=== PATIENT | female | born 1955 | race Caucasian/White ===

== ENCOUNTER → 2020-04-27 09:52 | Outpatient (BNVA) | payer MEDICARE, SELFPAY | PROVIDERS: PCP Internal Medicine; Visit Provider Surgery | DX: Z76.89 Persons encountering health services in other specified circumstances (principal) ==

== ENCOUNTER 2020-05-25 11:08 | Outpatient (REF) | payer MEDICARE, SELFPAY ==
--- NOTE | 2020-05-25 11:12 | MM_ITS ---
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 Due for yearly. COMPARISON: Mammography: 05/23/2019, 06/04/2018, 05/29/2018, 05/16/2018, 04/07/2014 TECHNIQUE: Digital breast tomosynthesis is performed in both the craniocaudal and mediolateral oblique views along with computer-aided detection (CAD). Synthesized 2D images are generated from the tomosynthesis. FINDINGS: There are scattered areas of fibroglandular density (ACR BI-RADS breast composition Category b). Left breast post therapy changes are stable. Neither breast shows interval mass or architectural abnormality or abnormal calcifications. There are no significant changes. Results are provided to the patient at time of visit by the technologist. MM/MM tomosynthesis diagnostic BI IMPRESSION: No mammographic evidence of malignancy. Post therapy changes left breast. ASSESSMENT: BI-RADS 2: Benign RECOMMENDATION: Annual bilateral mammography. This patient's information was entered into a reminder system with a target due date for their next mammogram.
== END 2020-05-25 11:09 | disposition home or self-care (01) ==
LOC: HO.MAMMO 11:08
PROVIDERS: PCP Internal Medicine; Visit Provider Internal Medicine
DX: C50.412 Malignant neoplasm of upper-outer quadrant of left female breast (principal)
CPT/HCPCS: 77062; 77066

== ENCOUNTER → 2020-07-01 07:58 | Outpatient (BNV) | payer MEDICARE, SELFPAY | PROVIDERS: PCP Internal Medicine; Visit Provider Internal Medicine Medical Oncology | DX: C50.912 Malignant neoplasm of unspecified site of left female breast (principal); Z79.810 Long term (current) use of selective estrogen receptor modulators (SERMs); D51.9 Vitamin B12 deficiency anemia, unspecified; M81.0 Age-related osteoporosis without current pathological fracture | CPT/HCPCS: 99213; 99214 ==

== ENCOUNTER → 2020-10-26 09:10 | Outpatient (BNVA) | payer MEDICARE, SELFPAY | PROVIDERS: PCP Internal Medicine; Visit Provider Surgery ==

== ENCOUNTER 2020-11-05 08:01 | Outpatient (REF) | payer MEDICARE, SELFPAY ==
--- NOTE | ~2020-11-05 | MM_ITS ---
EXAMINATION: BONE DENSITOMETRY CLINICAL INDICATION: Menopause. COMPARISON: Previous BD dated 04/07/2014 and baseline BD dated 03/11/2020. TECHNIQUE: Using a ProMed DXA System (software version: 13.1) manufactured by [employer], dual-energy x-ray absorptiometry was performed of the lumbar spine and right hip. The images are of good technical quality. Summary results are attached. FINDINGS: AP SPINE L3-L4 (excluding L1 and L2): The data of L1-L4 has been changed to exclude the L1 and L2 vertebral bodies, because probable degenerative changes at these levels may cause overestimation of lumbar spine density. Current: BMD 0.896 g/cm2, Z-score -0.7, T-score -2.5, osteoporosis, 2.1% increase from previous, 4.2% decrease from baseline (<5% change is not significant). Prior: BMD 0.878 g/cm2. Baseline: BMD 0.935 g/cm2. RIGHT FEMUR, NECK: Current: BMD 0.735 g/cm2, Z-score -0.5, T-score -2.2, osteopenia. Prior: BMD 0.727 g/cm2. Baseline: BMD 0.770 g/cm2. RIGHT FEMUR, TOTAL: Current: BMD 0.729 g/cm2, Z-score -0.8, T-score -2.2, osteopenia, 1.5% increase from previous, 2.3% decrease from baseline (<5% change is not significant). Prior: BMD 0.718 g/cm2. Baseline: BMD 0.746 g/cm2. IDENTIFIED RISK FACTORS: Early menopause, secondary osteoporosis, history of fracture (adult). HISTORY OF FRACTURE: Femur/hip. Shoulder. Elbow. MEDICATIONS: Vitamin D, ERT/SERMS. MM/XR DEXA axial skeleton IMPRESSION: 1. DIAGNOSIS: Osteoporosis based on the lowest T-score value of -2.5 in the lumbar spine applying World Health Organization criteria. 2. 10-YEAR FRACTURE RISK PREDICTION, FRAX: Major osteoporotic fracture (clinical spine, forearm, hip or shoulder) 17.7%. Hip fracture 3.5%. 3. Treatment Recommendations: NOF guidelines recommend consideration for treatment in postmenopausal women and men age 50 and older presenting with the following: -A hip or vertebral (clinical or morphometric) fracture. -T-score less than or equal to -2.5 at the femoral neck or spine after appropriate evaluation to exclude secondary causes. -Low bone mass at the hip or spine and a 10-year fracture probability by FRAX of greater than or equal to 3% for hip fracture or greater than or equal to 20% for major osteoporotic fracture based on the [place] adapted WHO algorithm. 4. Other Recommendations: All treatment decisions require clinical judgment and consideration of individual patient factors, including patient preferences, comorbidities, previous drug use, risk factors not captured in the FRAX model (e.g. frailty, falls, vitamin D deficiency, increased bone turnover, interval significant decline in bone density) and possible under or overestimation of fracture risk by FRAX. Additional medical evaluation for secondary cause of low bone mineral density may be appropriate. FUTURE SCAN RECOMMENDATION: People with diagnosed cases of osteoporosis or at high risk for fracture should have regular bone mineral density tests. For patients eligible for Medicare, routine testing is allowed once every 2 years. The testing frequency can be increased to one year for patients who have rapidly progressing disease, those who are receiving or discontinuing medical therapy to restore bone mass, or have additional risk factors.
== END 2020-11-05 08:02 | disposition home or self-care (01) ==
LOC: HO.MAMMO 08:01
PROVIDERS: PCP Internal Medicine; Visit Provider Obstetrics & Gynecology
DX: Z13.820 Encounter for screening for osteoporosis (principal); M81.0 Age-related osteoporosis without current pathological fracture; Z78.0 Asymptomatic menopausal state; Z87.81 Personal history of (healed) traumatic fracture; Z79.899 Other long term (current) drug therapy
CPT/HCPCS: 77080

== ENCOUNTER → 2021-01-20 09:01 | Outpatient (BNVA) | payer MEDICARE, SELFPAY | PROVIDERS: PCP Internal Medicine; Visit Provider Surgery | DX: C50.912 Malignant neoplasm of unspecified site of left female breast (principal); Z79.810 Long term (current) use of selective estrogen receptor modulators (SERMs) | CPT/HCPCS: 99212 ==

== ENCOUNTER 2021-05-27 12:51 | Outpatient (REF) | payer MEDICARE, SELFPAY ==
--- NOTE | ~2021-05-27 | MM_ITS ---
EXAMINATION: MM DIAGNOSTIC DIGITAL BREAST TOMOSYNTHESIS, BILATERAL CLINICAL INFORMATION: Status post lumpectomy June 18, 2018 for a left invasive ductal carcinoma. COMPARISON: Mammography: 05/25/2020 and studies dating back to 04/04/2012. TECHNIQUE: Digital breast tomosynthesis is performed in both the craniocaudal and mediolateral oblique views along with computer-aided detection (CAD). Synthesized 2D images are generated from the tomosynthesis. Left breast exaggerated craniocaudal view and spot magnification views of the left breast in craniocaudal and 90 degree mediolateral views also performed. FINDINGS: The breasts are heterogeneously dense, which may obscure small masses (ACR BI-RADS breast composition Category c). There are no new significant masses, abnormal calcifications, or other abnormalities. Postsurgical change again seen within the left breast without change. Results are provided to the patient at time of visit by the technologist. MM/MM tomosynthesis diagnostic BI IMPRESSION: There are no significant changes from prior study. ASSESSMENT: BI-RADS 2: Benign RECOMMENDATION: Routine annual mammography screening. This patient's information was entered into a reminder system with a target due date for their next mammogram.
== END 2021-05-27 12:52 | disposition home or self-care (01) ==
LOC: HO.MAMMO 12:51
PROVIDERS: PCP Internal Medicine; Visit Provider Surgery
DX: Z85.3 Personal history of malignant neoplasm of breast (principal)
CPT/HCPCS: 77062; 77066

== ENCOUNTER → 2021-09-08 08:52 | Outpatient (BNVA) | payer MEDICARE, SELFPAY | PROVIDERS: PCP Internal Medicine; Visit Provider Surgery | DX: C50.912 Malignant neoplasm of unspecified site of left female breast (principal); Z79.810 Long term (current) use of selective estrogen receptor modulators (SERMs); Z17.0 Estrogen receptor positive status [ER+]; Z92.3 Personal history of irradiation | CPT/HCPCS: 99212 ==

== ENCOUNTER 2021-12-01 13:16 | Outpatient (REF) | payer MEDICARE, SELFPAY ==
--- NOTE | ~2021-12-01 | US_ITS ---
EXAMINATION: US SCREENING ULTRASOUND BREAST, BILATERAL CLINICAL INFORMATION: Dense breast tissue composition reported on recent mammography. History left invasive ductal cancer status post lumpectomy 06/18/2018. Screening ultrasound. COMPARISON: Mammography 05/27/2021, 05/25/2020. TECHNIQUE: Ultrasound is performed using grayscale imaging and color Doppler. Imaging is performed to include the four quadrants and retroareolar region. Both breasts are imaged. FINDINGS: Right breast: There is no suspicious finding by ultrasound. There is no cystic or solid mass or focal architectural abnormality. Left breast: There is no suspicious finding by ultrasound. Some minor scarring is noted posterior outer breast during real-time imaging consistent with the prior surgery. There is no cystic or solid mass or focal architectural abnormality. US/US breast RT complete IMPRESSION: No suspicious findings on screening breast ultrasound. ASSESSMENT: BI-RADS 2: Benign RECOMMENDATION: Routine annual mammography screening. This patient's information was entered into a reminder system with a target due date for their next mammogram.
--- NOTE | ~2021-12-01 | US_ITS ---
EXAMINATION: US SCREENING ULTRASOUND BREAST, BILATERAL CLINICAL INFORMATION: Dense breast tissue composition reported on recent mammography. History left invasive ductal cancer status post lumpectomy 06/18/2018. Screening ultrasound. COMPARISON: Mammography 05/27/2021, 05/25/2020. TECHNIQUE: Ultrasound is performed using grayscale imaging and color Doppler. Imaging is performed to include the four quadrants and retroareolar region. Both breasts are imaged. FINDINGS: Right breast: There is no suspicious finding by ultrasound. There is no cystic or solid mass or focal architectural abnormality. Left breast: There is no suspicious finding by ultrasound. Some minor scarring is noted posterior outer breast during real-time imaging consistent with the prior surgery. There is no cystic or solid mass or focal architectural abnormality. US/US breast LT complete IMPRESSION: No suspicious findings on screening breast ultrasound. ASSESSMENT: BI-RADS 2: Benign RECOMMENDATION: Routine annual mammography screening. This patient's information was entered into a reminder system with a target due date for their next mammogram.
== END 2021-12-01 13:17 | disposition home or self-care (01) ==
LOC: HO.MAMMO 13:16
PROVIDERS: PCP Family Medicine; Visit Provider Surgery
DX: C50.912 Malignant neoplasm of unspecified site of left female breast (principal)
CPT/HCPCS: 76641

== ENCOUNTER → 2022-03-14 09:04 | Outpatient (BNVA) | payer MEDICARE, SELFPAY | PROVIDERS: PCP Family Medicine; Visit Provider Surgery | DX: C50.912 Malignant neoplasm of unspecified site of left female breast (principal) | CPT/HCPCS: 99212 ==

== ENCOUNTER 2022-06-05 07:51 | Outpatient (REF) | payer MEDICARE, SELFPAY ==
--- NOTE | ~2022-06-05 | MM_ITS ---
EXAMINATION: MM SCREENING DIGITAL BREAST TOMOSYNTHESIS, BILATERAL CLINICAL INFORMATION: Left IDC status post lumpectomy 06/18/2018. COMPARISON: Mammography: 05/27/2021, 05/25/2020, 05/23/2019, 06/04/2018, 05/16/2018 TECHNIQUE: Digital breast tomosynthesis is performed in both the craniocaudal and mediolateral oblique views along with computer-aided detection (CAD). Synthesized 2D images are generated from the tomosynthesis. FINDINGS: The breasts are heterogeneously dense, which may obscure small masses (ACR BI-RADS breast composition Category c). There are post therapy changes on the left similar to prior studies. Parenchymal pattern is similar to prior exams. There is no interval mass or developing density or architectural abnormality. No abnormal calcifications. No significant changes. MM/MM tomosynthesis screening BI IMPRESSION: -No mammographic evidence of malignancy. -Post therapy changes left breast. ASSESSMENT: BI-RADS 2: Benign RECOMMENDATION: Routine annual mammography screening. This patient's information was entered into a reminder system with a target due date for their next mammogram.
== END 2022-06-05 07:52 | disposition home or self-care (01) ==
LOC: HO.MAMMO 07:51
PROVIDERS: PCP Family Medicine; Visit Provider Internal Medicine Medical Oncology
DX: Z12.31 Encounter for screening mammogram for malignant neoplasm of breast (principal)
CPT/HCPCS: 77063; 77067

== ENCOUNTER 2022-06-06 11:55 | Outpatient (REF) | payer MEDICARE, SELFPAY ==
--- NOTE | ~2022-06-06 | US_ITS ---
EXAMINATION: US SCREENING ULTRASOUND BREAST, BILATERAL CLINICAL INFORMATION: Dense breasts on mammography. Screening ultrasound. Left IDC status post lumpectomy 06/18/2018. COMPARISON: Mammography 06/05/2022, bilateral screening breast ultrasound 12/01/2021. TECHNIQUE: Ultrasound is performed using grayscale imaging and color Doppler. Imaging is performed to include the four quadrants and retroareolar region. Both breasts are imaged. FINDINGS: Right breast: There is no suspicious finding by ultrasound. There is no cystic or solid mass or focal architectural abnormality. Left breast: There is no suspicious finding by ultrasound. There is no cystic or solid mass. Some minor scarring is present during real-time imaging consistent with the prior lumpectomy. No interval architectural abnormality. US/US breast RT complete IMPRESSION: -No suspicious findings on screening breast ultrasound. ASSESSMENT: BI-RADS 2: Benign RECOMMENDATION: Routine annual mammography screening. This patient's information was entered into a reminder system with a target due date for their next mammogram.
--- NOTE | ~2022-06-06 | US_ITS ---
EXAMINATION: US SCREENING ULTRASOUND BREAST, BILATERAL CLINICAL INFORMATION: Dense breasts on mammography. Screening ultrasound. Left IDC status post lumpectomy 06/18/2018. COMPARISON: Mammography 06/05/2022, bilateral screening breast ultrasound 12/01/2021. TECHNIQUE: Ultrasound is performed using grayscale imaging and color Doppler. Imaging is performed to include the four quadrants and retroareolar region. Both breasts are imaged. FINDINGS: Right breast: There is no suspicious finding by ultrasound. There is no cystic or solid mass or focal architectural abnormality. Left breast: There is no suspicious finding by ultrasound. There is no cystic or solid mass. Some minor scarring is present during real-time imaging consistent with the prior lumpectomy. No interval architectural abnormality. US/US breast LT complete IMPRESSION: -No suspicious findings on screening breast ultrasound. ASSESSMENT: BI-RADS 2: Benign RECOMMENDATION: Routine annual mammography screening. This patient's information was entered into a reminder system with a target due date for their next mammogram.
== END 2022-06-06 11:56 | disposition home or self-care (01) ==
LOC: HO.MAMMO 11:55
PROVIDERS: Visit Provider Surgery
DX: R92.2 Inconclusive mammogram (principal); Z85.3 Personal history of malignant neoplasm of breast
CPT/HCPCS: 76641

== ENCOUNTER → 2022-09-12 09:00 | Outpatient (BNVA) | payer BC, SELFPAY | PROVIDERS: PCP Family Medicine; Visit Provider Surgery | DX: C50.512 Malignant neoplasm of lower-outer quadrant of left female breast (principal); M81.0 Age-related osteoporosis without current pathological fracture; Z17.0 Estrogen receptor positive status [ER+]; Z92.3 Personal history of irradiation; Z79.810 Long term (current) use of selective estrogen receptor modulators (SERMs) | CPT/HCPCS: 99212 ==

== ENCOUNTER 2022-11-16 08:07 | Outpatient (REF) | payer BC, SELFPAY ==
--- NOTE | ~2022-11-16 | MM_ITS ---
EXAMINATION: BONE DENSITOMETRY CLINICAL INDICATION: Osteoporosis. COMPARISON: Previous BD dated 11/05/2020 and baseline BD dated 03/11/2010. TECHNIQUE: Using a [employer] DXA System (software version: 13.1) manufactured by [employer], dual-energy x-ray absorptiometry was performed of the lumbar spine and left forearm radius 33%. The images are of good technical quality. Summary results are attached. FINDINGS: RIGHT FEMUR, NECK: Current: BMD 0.612 g/cm2, Z-score -1.4, T-score -3.1, osteoporosis. Prior: BMD 0.735 g/cm2. Baseline: BMD 0.770 g/cm2. RIGHT FEMUR, TOTAL: Current: BMD 0.596 g/cm2, Z-score -1.8, T-score -3.3, osteoporosis, 18.2% decrease from previous, 20.1% decrease from baseline (<5% change is not significant). Prior: BMD 0.729 g/cm2. Baseline: BMD 0.746 g/cm2. AP SPINE L1-L4: Current: BMD 0.990 g/cm2, Z-score 0.1, T-score -1.6, osteopenia, 4.3% increase from previous, 2.5% increase from baseline (<5% change is not significant). Prior: BMD 0.949 g/cm2. Baseline: BMD 0.966 g/cm2. IDENTIFIED RISK FACTORS: Early menopause, secondary osteoporosis, osteoporosis, history of fracture (adult). HISTORY OF FRACTURE: Femur/hip, humerus/shoulder. MEDICATIONS: Calcium supplements or multivitamin, vitamin D, ERT/SERMS, bisphosphonates. MM/XR DEXA axial skeleton IMPRESSION: 1. DIAGNOSIS: Osteoporosis based on the lowest T-score value of -3.3 in the total femur applying World Health Organization criteria. 2. 10-YEAR FRACTURE RISK PREDICTION, FRAX: According to the guidelines, FRAX calculation should only be performed on patients in the osteopenia bone density category. Therefore, FRAX was not performed on this patient. 3. Treatment Recommendations: NOF guidelines recommend consideration for treatment in postmenopausal women and men age 50 and older presenting with the following: -A hip or vertebral (clinical or morphometric) fracture. -T-score less than or equal to -2.5 at the femoral neck or spine after appropriate evaluation to exclude secondary causes. -Low bone mass at the hip or spine and a 10-year fracture probability by FRAX of greater than or equal to 3% for hip fracture or greater than or equal to 20% for major osteoporotic fracture based on the [place] adapted WHO algorithm. 4. Other Recommendations: All treatment decisions require clinical judgment and consideration of individual patient factors, including patient preferences, comorbidities, previous drug use, risk factors not captured in the FRAX model (e.g. frailty, falls, vitamin D deficiency, increased bone turnover, interval significant decline in bone density) and possible under or overestimation of fracture risk by FRAX. Additional medical evaluation for secondary cause of low bone mineral density may be appropriate. FUTURE SCAN RECOMMENDATION: People with diagnosed cases of osteoporosis or at high risk for fracture should have regular bone mineral density tests. For patients eligible for Medicare, routine testing is allowed once every 2 years. The testing frequency can be increased to one year for patients who have rapidly progressing disease, those who are receiving or discontinuing medical therapy to restore bone mass, or have additional risk factors.
--- NOTE | 2023-01-16 10:33 | HO.HEMONCPA ---
[id number]
== END 2022-11-16 08:08 | disposition home or self-care (01) ==
LOC: HO.MAMMO 08:07
PROVIDERS: Visit Provider Internal Medicine Endocrinology, Diabetes & Metabolism
DX: Z13.820 Encounter for screening for osteoporosis (principal); Z78.0 Asymptomatic menopausal state
CPT/HCPCS: 77080

== ENCOUNTER 2023-03-13 09:13 | Outpatient (AMB) | payer BC, SELFPAY ==
--- NOTE | 2023-03-13 09:17 | A.OFFVIS_ITS ---
Intake Vital Signs 03/13/23 09:20 Height 5 ft 6 in Weight 145 lb 8.081 oz BMI 23.5 BP 110/70 Blood Pressure Location Lt brachial Position Sitting Intake Visit Reasons: 6 mth breast exam Intake Note: Patient is seen in office for 6 month follow up visit, breast exam. Patient c/o: denies any concerns or changes regarding the breast Sports Activities Foul Judge Required: No Fashion Marketer: Fashion Marketer Present Accompanied by: Self / Same As Patient Allergies adhesive tape [ADHESIVE TAPE] Allergy (Intermediate, Verified 03/13/23 09:22) BLISTERS Sulfa (Sulfonamide Antibiotics) Allergy (Intermediate, Verified 03/13/23 09:22) RASH naproxen [Aleve] Allergy (Unknown, Verified 03/13/23 09:22) diarrhea sulfamethoxazole Allergy (Unknown, Verified 03/13/23 09:22) rash tape Allergy (Unknown, Uncoded 03/13/23 09:22) rash From Aleve Adverse Reaction (Intermediate, Uncoded 03/13/23 09:22) GI UPSET Medication List - Last Reconciled 03/13/23 by Jose Mazariegos MD alendronate 70 mg PO QWEEK calcium carbonate (Calcium 500) 500 mg PO DAILY cholecalciferol (vitamin D3) 25 mcg PO BID jyfcakvzkxoh-rlqyofnaumc-gigvj 1,000-200 mcg 1 tab PO DAILY levothyroxine 88 mcg PO DAILY sertraline 100 mg PO DAILY tamoxifen 10 mg PO BID HPI HPI Comments History of Present Illness Details 67-year-old female patient returning for a breast cancer follow-up examination. She is a former patient of Dr. Camejo with a history of left br east infiltrating ductal carcinoma, grade 1, 1.5 cm, with DCIS, ER positive, IL negative, HER2 Niko negative. She underwent a left breast lumpectomy with needle localization and left axillary sentinel node biopsy on 06/18/2018 (pT1c N0 (sn)(i-)). She was evaluated by Dr. Scanlon. Oncotype DX score was 30 and chemotherapy was recommended. She sought a 2nd opinion and chemotherapy was not recommended. She elected not to take chemotherapy and completed radiation therapy in September 2018. She was started on tamoxifen in November 2018 with 10 mg twice daily. She continues to tolerate this well with no side effects. Her most recent mammogram dated 06/05/2022 revealed no evidence of malignancy (BI-RADS 2). Bilateral screening ultrasounds on 06/06/2022 revealed no suspicious findings bilaterally. She denies any new symptoms in either breast. She is scheduled for a bilateral mammogram 06/11/2023. She continues to recover from the hip fracture and now is having symptoms in her knee requiring cortisone injections every 3 months. [facility] Medical History Hx of skin cancer, basal cell (~10/19/22) Basal cell carcinoma (BCC) in situ of skin (~10/19/22) History of fracture of arm Hx of fracture of femur Osteoporosis Hypothyroidism Breast cancer, left Surgical History History of excision of lesion (10/2022) History of hip replacement History of Mohs surgery for squamous cell carcinoma of skin (03/2021) Hx of rotator cuff surgery History of left knee surgery History of lumpectomy of left breast History of total replacement of right shoulder joint Family History Maternal Grandmother Diabetes Father HTN (hypertension) Stroke Mother Pulmonary fibrosis HTN (hypertension) Sister HTN (hypertension) Family/Other Acute Crohn's disease Paternal Uncle Stomach cancer Social History Household Members: None Housing: Apartment Are you a primary health care analyst to a significant other at home: No Do you presently have visiting nurse or other home services: No Alcohol intake: former Patient Tobacco Use Status: Never used Tobacco service: No Current occupational status: employed Review of Systems Const All systems reviewed & are unremarkable except as noted in HPI and below Card Denies chest pain, Denies rapid heart rate and Denies irregular heart rhythm Resp Reports no additional complaints Denies nipple discharge Skin/Breast Denies breast swelling, Denies breast skin changes, Denies breast pain, Denies b reast mass, Denies change in breast shape, Denies change in pigmentation and Denies nipple discharge Marcelo/Lymph Denies lymphadenopathy Physical Exam Vital Signs: Last Vital Signs BP 110/70 03/13/23 09:20 BMI result Body Mass Index 23.5 Const General: no acute distress and well developed Nutritional Appearance: well nourished Orientation/consciousness: patient oriented x3 Limitations: no limitations HEENT Head: Yes normocephalic Ears: hearing grossly normal bilaterally Chest Other: Left breast: No skin change, no nipple retraction, no nipple discharge, no palpable mass, no enlarged lymph nodes. Well-healed incision in the lower outer quadrant left breast with no palpable mass and only minimal residual scar tissue. Right breast: No skin change, no nipple retraction, no nipple discharge, no palpable mass, no enlarged lymph nodes. Resp Effort & Inspection: normal respiratory effort, no audible wheezes and no cough GI Inspection: Yes normal to inspection Palpation (GI): Soft to palpation Auscultation: normal bowel sounds Skin General skin exam: no rashes or lesions noted Neuro General: patient oriented x3 Extrem General: Yes no clubbing, cyanosis or edema Assessment & Plan Assessment & Plan (1) Breast cancer, left: Code(s): C50.912 - Malignant neoplasm of unspecified site of left female breast Qualifiers: Breast location: upper outer quadrant of breast Estrogen receptor status: positive Patient sex: female Qualified Code(s): C50.412 - Malignant neoplasm of upper-outer quadrant of left female breast; Z17.0 - Estrogen receptor positive status [ER+] Plan: 67-year-old female patient, former patient of Dr. Camejo returning for a breast cancer follow-up. She is S/P left breast lumpectomy with needle localization, left sentinel node biopsy on 06/18/2018. This was followed by radiation therapy and tamoxifen. She continues to do well but did have some skin changes in the right breast at the upper outer quadrant which have now resolved. Examination today reveals no suspicious findings in either breast. Her last mammogram of 06/05/2022 revealed dense breast tissue (cat C) with no significant changes ( BI- RADS 2). Bilateral screening ultrasounds on 06/06/2022 revealed no suspicious findings bilaterally. She will return in 6 months for follow-up examination. Her next mammogram is scheduled for 06/11/2023. Coding Level of Care Code Est Pt Level 3 (68068) Diagnoses Malignant neoplasm of upper-outer quadrant of left breast in female, estrogen receptor positive C50.412; Z17.0 Breast location: upper outer quadrant of breast Estrogen receptor status: positive Patient sex: female
[2023-03-13 09:20] VITALS: BP 110/70; BMI 23.5
== END 2023-03-13 09:41 | disposition home or self-care (01) ==
PROVIDERS: PCP Family Medicine; Visit Provider Surgery
DX: C50.412 Malignant neoplasm of upper-outer quadrant of left female breast (principal); Z17.0 Estrogen receptor positive status [ER+]
CPT/HCPCS: 99213

== ENCOUNTER → 2023-03-13 09:13 | Outpatient (BNVA) | payer BC, SELFPAY | PROVIDERS: PCP Family Medicine; Visit Provider Surgery ==

== ENCOUNTER → 2023-06-11 08:15 | Outpatient (BNV) | payer BC, SELFPAY | PROVIDERS: PCP Family Medicine; Visit Provider Radiology Diagnostic Radiology | DX: Z12.31 Encounter for screening mammogram for malignant neoplasm of breast (principal) | CPT/HCPCS: 77063; 77067 ==

== ENCOUNTER 2023-06-11 08:18 | Outpatient (REF) | payer BC, SELFPAY ==
--- NOTE | ~2023-06-11 | MM_ITS ---
EXAMINATION: MM SCREENING DIGITAL BREAST TOMOSYNTHESIS, BILATERAL CLINICAL INFORMATION: Screening. Asymptomatic. Status post lumpectomy 06/18/2018 for left invasive ductal carcinoma. COMPARISON: Mammography: 06/05/2022, 05/27/2021, 05/25/2020, 05/23/2019, 06/04/2018, 05/16/2018 TECHNIQUE: Digital breast tomosynthesis is performed in both the craniocaudal and mediolateral oblique views along with computer-aided detection (CAD). Synthesized 2D images are generated from the tomosynthesis. Bilateral additional full-field MLO views were also provided for nipple in profile and anterior compression. FINDINGS: The breasts are heterogeneously dense, which may obscure small masses (ACR BI-RADS breast composition Category c). Post therapy changes in the left breast upper outer quadrant are stable without interval change. Parenchymal pattern is unchanged when compared with prior studies in both breasts. There is no suspicious mass, developing architectural distortion, or suspicious calcifications. No axillary abnormalities. Mild skin thickening left breast from post therapy changes. Overall, no change. MM/MM tomosynthesis screening BI IMPRESSION: No mammographic evidence of malignancy. Stable post therapy changes left breast, benign. ASSESSMENT: BI-RADS BI-RADS 2 - Benign Findings RECOMMENDATION: Routine annual mammography screening. 1 year F/U This examination should not preclude the clinical evaluation of a suspicious palpable abnormality. This patient's information was entered into a reminder system with a target due date for their next mammogram.
== END 2023-06-11 08:19 | disposition home or self-care (01) ==
LOC: HO.MAMMO 08:18
PROVIDERS: PCP Family Medicine; Visit Provider Family Medicine
DX: Z12.31 Encounter for screening mammogram for malignant neoplasm of breast (principal)
CPT/HCPCS: 77063; 77067

== ENCOUNTER → 2023-06-12 12:00 | Outpatient (BNV) | payer BC, SELFPAY | PROVIDERS: PCP Family Medicine; Visit Provider Radiology Diagnostic Radiology | DX: R92.8 Other abnormal and inconclusive findings on diagnostic imaging of breast (principal) | CPT/HCPCS: 76641 ==

== ENCOUNTER 2023-06-12 12:02 | Outpatient (REF) | payer BC, SELFPAY ==
--- NOTE | ~2023-06-12 | US_ITS ---
EXAMINATION: US SCREENING ULTRASOUND BREAST, BILATERAL CLINICAL INFORMATION: Dense breast tissue. Screening adjunct. COMPARISON: 06/06/2022. TECHNIQUE: Ultrasound of the breast is performed with real-time whatley scale imaging and color Doppler. Imaging of all 4 quadrants, the bilateral retroareolar regions, and bilateral axillary regions was performed. FINDINGS: There is no focal suspicious finding. There is no solid mass, architectural abnormality, duct ectasia, or edema in the soft tissue planes. There are no cystic abnormalities. There is no abnormality in the axillary regions. Results are discussed with the patient at time of visit. US/US breast BI complete IMPRESSION: Negative screening bilateral breast ultrasound. ASSESSMENT: BI-RADS 1 - Negative RECOMMENDATION: 1 year F/U This patient's information was entered into a reminder system with a target due date for their next mammogram.
== END 2023-06-12 12:03 | disposition home or self-care (01) ==
LOC: HO.MAMMO 12:02
PROVIDERS: PCP Family Medicine; Visit Provider Surgery
DX: Z91.89 Other specified personal risk factors, not elsewhere classified (principal)
CPT/HCPCS: 76641

== ENCOUNTER 2023-09-24 06:36 | Day surgery (SDC) | payer MEDICARE, SELFPAY ==
[2023-09-20 14:54] VITALS: BMI 23.2
--- NOTE | 2023-09-20 14:57 | P.CONAN_ITS ---
Documented by User: Dorie Spivey NP 09/20/23 14:57 HPI - Anesthesia Eval Consult details Narrative: 68yo F for Colonoscopy PMFSH Active Problems Active Problems: All Active Problems Anemia (Acute) At high risk for breast cancer (Acute) Osteoporosis (Acute) Breast cancer, left (Acute) Past Medical History Medical History Post-operative nausea and vomiting PVCs (premature ventricular contractions) Hx of skin cancer, basal cell (~10/19/22) Basal cell carcinoma (BCC) in situ of skin (~10/19/22) History of fracture of arm Hx of fracture of femur Osteoporosis Hypothyroidism Breast cancer, left Family History Family History Maternal Grandmother Diabetes Father HTN (hypertension) Stroke Mother Pulmonary fibrosis HTN (hypertension) Sister HTN (hypertension) Family/Other Acute Crohn's disease Paternal Uncle Stomach cancer Surgical History Surgical History H/O colonoscopy History of excision of lesion (10/2022) History of hip replacement History of Mohs surgery for squamous cell carcinoma of skin (03/2021) Hx of rotator cuff surgery History of left knee surgery History of lumpectomy of left breast History of total replacement of right shoulder joint Social History Social History Household Members: None Housing: Apartment Are you a primary health care marketing manager to a significant other at home: No Do you presently have visiting nurse or other home services: No Alcohol intake: former Patient Tobacco Use Status: Never used Tobacco Second Hand Smoke Exposure: No Use of substances other than those prescribed or required for medical reasons: No Are you DNR?: No Advance Directives: No Advance Directives Information Provided: Yes Advance Directives on File: No service: No Current occupational status: employed Meds Allergies Allergy/AdvReac Type Severity Reaction Status Date / Time adhesive tape [ADHESIVE TAPE] Allergy Intermediate BLISTERS Verified 09/17/23 08:18 naproxen [Aleve] Allergy Intermediate diarrhea Verified 09/20/23 14:52 Sulfa (Sulfonamide Allergy Intermediate RASH Verified 09/17/23 08:18 Antibiotics) Home Medications ?Medication ?Instructions ?Recorded ?Confirmed ?Last Taken ?Type cholecalciferol (vitamin D3) 25 25 mcg PO BID 04/27/20 09/20/23 09/23/23 History mcg (1,000 unit) capsule levothyroxine 88 mcg tablet 88 mcg PO DAILY 04/27/20 09/20/23 09/23/23 History sertraline 100 mg tablet 100 mg PO DAILY 04/27/20 09/20/23 09/23/23 History calcium carbonate (Calcium 500) 500 mg PO DAILY 07/18/22 09/24/23 09/23/23 History Exam Height,Weight and Vital Signs: Height 5 ft 6 in Weight 65.317 kg Assessment and Plan Assessment Anesthesia Assessment: Chart Reviewed Documented by User: Shani Santos MD 09/24/23 07:32 [facility] Past Medical History Medical History Post-operative nausea and vomiting PVCs (premature ventricular contractions) Hx of skin cancer, basal cell (~10/19/22) Basal cell carcinoma (BCC) in situ of skin (~10/19/22) History of fracture of arm Hx of fracture of femur Osteoporosis Hypothyroidism Breast cancer, left Family History Family History Maternal Grandmother Diabetes Father HTN (hypertension) Stroke Mother Pulmonary fibrosis HTN (hypertension) Sister HTN (hypertension) Family/Other Acute Crohn's disease Paternal Uncle Stomach cancer Surgical History Surgical History H/O colonoscopy History of excision of lesion (10/2022) History of hip replacement History of Mohs surgery for squamous cell carcinoma of skin (03/2021) Hx of rotator cuff surgery History of left knee surgery History of lumpectomy of left breast History of total replacement of right shoulder joint History of Problems with Anesthesia: No Social History Social History Household Members: None Housing: Apartment Are you a primary health care marketing manager to a significant other at home: No Do you presently have visiting nurse or other home services: No Alcohol intake: former Patient Tobacco Use Status: Never used Tobacco Second Hand Smoke Exposure: No Use of substances other than those prescribed or required for medical reasons: No Are you DNR?: No Advance Directives: No Advance Directives Information Provided: Yes Advance Directives on File: No service: No Current occupational status: employed Meds Allergies Allergy/AdvReac Type Severity Reaction Status Date / Time adhesive tape [ADHESIVE TAPE] Allergy Intermediate BLISTERS Verified 09/17/23 08:18 naproxen [Aleve] Allergy Intermediate diarrhea Verified 09/20/23 14:52 Sulfa (Sulfonamide Allergy Intermediate RASH Verified 09/17/23 08:18 Antibiotics) Home Medications ?Medication ?Instructions ?Recorded ?Confirmed ?Last Taken ?Type cholecalciferol (vitamin D3) 25 25 mcg PO BID 04/27/20 09/20/23 09/23/23 History mcg (1,000 unit) capsule levothyroxine 88 mcg tablet 88 mcg PO DAILY 04/27/20 09/20/23 09/23/23 History sertraline 100 mg tablet 100 mg PO DAILY 04/27/20 09/20/23 09/23/23 History calcium carbonate (Calcium 500) 500 mg PO DAILY 07/18/22 09/24/23 09/23/23 History Exam Airway Mallampati Class: III (small mouth) TM Dist: >3cm Neck ROM: Full Loose/Missing/Broken Teeth: No Heart: RRR Lungs: CTA Assessment and Plan Assessment Anesthesia Assessment: Anesthesia Plan Discussed Final Anesthetic Review History of Problems with Anesthesia: No NPO: Yes ASA Class: II Final Preanesthetic Review: Meds/Allgs Chart Reviewed, Consent Obtained/Reviewed and Anes Risks/Benef Reviewed Patient Risk: Low Procedure Risk: Low Anesthetic Plan Anesthetic Plan: MAC: Disposition: Standard PACU
[2023-09-24 07:10] VITALS: BP 133/64; PULSE 73; RESP 16; TEMP 36.2; O2SAT 99; BMI 23.3
[2023-09-24] MEDS: Lactated Ringers 1,000 ML 100 ML IVCONT (07:21)
[2023-09-24 08:26] VITALS: BP 95/46; PULSE 69; RESP 16; TEMP 36.1; O2SAT 98
--- NOTE | 2023-09-24 08:29 | PM.OP ---
Brief Operative Note Date of Service: 09/24/23 Pre-op diagnosis: Screening Post-op diagnosis: other (Diverticulosis) Procedure: Colonoscopy to the cecum and TI Surgeon: Troy Martinez MD Anesthesia: MAC Was an Surg Physician Asst used for this Procedure?: No Estimated blood loss (mL): 0 Pathology: none sent Condition: stable Disposition: PACU
[2023-09-24 08:44] VITALS: BP 115/63; PULSE 65; RESP 18; TEMP 36.2; O2SAT 100
--- NOTE | 2023-09-24 08:55 | OP_ITS ---
DATE OF SERVICE: 09/24/2023 SURGEON: Troy Martinez MD INDICATIONS: The patient presents for evaluation of colorectal cancer screening. Full consent has been obtained from her for this, including risks of bleeding and perforation. PREOPERATIVE DIAGNOSIS: Colorectal cancer screening. POSTOPERATIVE DIAGNOSIS: PROCEDURE PERFORMED: Colonoscopy to the cecum and terminal ileum. ESTIMATED BLOOD LOSS: COMPLICATIONS: ANESTHESIA: Monitored anesthesia care. ASSISTANTS: SPECIMENS: POSTOPERATIVE DIAGNOSES: Colorectal cancer screening, diverticulosis. DESCRIPTION OF PROCEDURE: The patient was placed in the left lateral decubitus position. The digital rectal exam revealed no abnormalities. The Olympus video pediatric colonoscope was then entered into the rectum and advanced easily to the cecum. Once in the cecum, I did identify normal-appearing cecal pouch with appendiceal orifice and a normal-appearing ileocecal valve. The terminal ileum was cannulated and appeared normal. The scope was withdrawn back in the colon. The entire cecum and ileocecal valve appeared normal. The scope was slowly withdrawn, assessing all mucosal surfaces carefully. Preparation was excellent. I did not visualize any sign of polyps, colitis, nor angiodysplasia. There was a mild amount of sigmoid diverticulosis. In the rectum, scope was retroflexed, visualizing normal rectal mucosa and no pathology. The scope was straightened and withdrawn from the patient. She tolerated the procedure well and was returned to the recovery area in stable condition. IMPRESSION: Diverticulosis. PLAN: Given today's negative exam and her age, I do not think she will need any further screening colonoscopies in the future. As such, she will see me on a p.r.n. basis. This was discussed with her sister. MD NILA Garcia/TIFFANY / [phone] MTDD
== END 2023-09-24 09:21 | disposition home or self-care (01) ==
PROVIDERS: PCP Family Medicine; Visit Provider Internal Medicine
PROC: 0DJD8ZZ Inspection of Lower Intestinal Tract, Via Natural or Artificial Opening Endoscopic (ICD-10-PCS; CPT 45378; principal; 2023-09-24 07:30)
DX: Z12.11 Encounter for screening for malignant neoplasm of colon (principal); K57.30 Diverticulosis of large intestine without perforation or abscess without bleeding
CPT/HCPCS: G0121; J2405; J2704

== ENCOUNTER 2023-10-11 08:55 | Outpatient (AMB) | payer BC, SELFPAY ==
--- NOTE | 2023-10-11 08:56 | A.OFFVIS_ITS ---
Vital Signs 10/11/23 09:02 Height 5 ft 6 in Weight 144 lb 9.972 oz BMI 23.3 BP 117/61 Blood Pressure Location Lt brachial Position Sitting Pulse 82 Intake Visit Reasons: 6 mth breast exam Intake Note: Patient is seen in office for 6 month follow up visit, breast exam. Pt c/o: denies any concerns regarding the breast mm 06/11/23 B US: 06/12/23 Striker Out Required: No Firer Locomotive Crane: Firer Locomotive Crane Present Accompanied by: Self / Same As Patient Allergies adhesive tape [ADHESIVE TAPE] Allergy (Intermediate, Verified 10/11/23 09:01) BLISTERS naproxen [Aleve] Allergy (Intermediate, Verified 10/11/23 09:01) diarrhea Sulfa (Sulfonamide Antibiotics) Allergy (Intermediate, Verified 10/11/23 09:01) RASH HPI Comments Details: 68-year-old female patient returning for a breast cancer follow-up examination. She is a former patient of Dr. Camejo with a history of left breast infiltrating ductal carcinoma, grade 1, 1.5 cm, with DCIS, ER positive, VT negative, HER2 Niko negative. She underwent a left breast lumpectomy with needle localization and left axillary sentinel node biopsy on 06/18/2018 (pT1c N0 (sn)(i-)). She was evaluated by Dr. Scanlon. Oncotype DX score was 30 and chemotherapy was recommended. She sought a 2nd opinion and chemotherapy was not recommended. She elected not to take chemotherapy and completed radiation therapy in September 2018. She was started on tamoxifen in November 2018 with 10 mg twice daily. She continues to tolerate this well with no side effects. Mammogram dated 06/11/2023 revealed no mammographic evidence of malignancy (BI-RADS 2). Bilateral screening ultrasounds performed on 06/12/2023 also revealed no sonographic evidence of malignancy (BI-RADS 1 bilateral). [facility] Medical History Post-operative nausea and vomiting PVCs (premature ventricular contractions) Hx of skin cancer, basal cell (~10/19/22) Basal cell carcinoma (BCC) in situ of skin (~10/19/22) History of fracture of arm Hx of fracture of femur Osteoporosis Hypothyroidism Breast cancer, left Surgical History H/O colonoscopy History of excision of lesion (10/2022) History of hip replacement History of Mohs surgery for squamous cell carcinoma of skin (03/2021) Hx of rotator cuff surgery History of left knee surgery History of lumpectomy of left breast History of total replacement of right shoulder joint Family History Maternal Grandmother Diabetes Father HTN (hypertension) Stroke Mother Pulmonary fibrosis HTN (hypertension) Sister HTN (hypertension) Family/Other Acute Crohn's disease Paternal Uncle Stomach cancer Social History Household Members: None Housing: Apartment Are you a primary career development engineer to a significant other at home: No Do you presently have visiting nurse or other home services: No Alcohol intake: former Patient Tobacco Use Status: Never used Tobacco Second Hand Smoke Exposure: No service: No Current occupational status: employed Review of Systems Const All systems reviewed & are unremarkable except as noted in HPI and below Card Denies chest pain, Denies rapid heart rate and Denies irregular heart rhythm Resp Reports no additional complaints Denies nipple discharge Skin/Breast Denies breast swelling, Denies breast skin changes, Denies breast pain, Denies breast mass, Denies change in breast shape, Denies change in pigmentation and Denies nipple discharge Marcelo/Lymph Denies lymphadenopathy Physical Exam Const General: no acute distress and well developed Nutritional Appearance: well nourished Orientation/consciousness: patient oriented x3 Limitations: no limitations HEENT Head: Yes normocephalic Ears: hearing grossly normal bilaterally Chest Other: Left breast: No skin change, no nipple retraction, no nipple discharge, no palpable mass, no enlarged lymph nodes. Well-healed incision in the lower outer quadrant left breast with no palpable mass and only minimal residual scar tissue. Right breast: No skin change, no nipple retraction, no nipple discharge, no palpable mass, no enlarged lymph nodes. Resp Effort & Inspection: normal respiratory effort, no audible wheezes and no cough GI Inspection: Yes normal to inspection Palpation (GI): Soft to palpation Auscultation: normal bowel sounds Skin General skin exam: no rashes or lesions noted Neuro General: patient oriented x3 Extrem General: Yes no clubbing, cyanosis or edema Assessment & Plan Assessment & Plan (1) Breast cancer, left: Code(s): C50.912 - Malignant neoplasm of unspecified site of left female breast Category: Medical Qualifiers: Breast location: upper outer quadrant of breast Estrogen receptor status: positive Patient sex: female Qualified Code(s): C50.412 - Malignant neoplasm of upper-outer quadrant of left female breast; Z17.0 - Estrogen receptor positive status [ER+] Plan: 68-year-old female patient, former patient of Dr. Camejo returning for a breast cancer follow-up. She is S/P left breast lumpectomy with needle localization, left sentinel node biopsy on 06/18/2018. This was followed by radiation therapy and tamoxifen. She continues to do well but did have some skin changes in the right breast at the upper outer quadrant which have now resolved. Examination today reveals no suspicious findings in either breast. Breast tissue was thicker on the left side consistent with prior radiation and surgery. Her most recent mammogram of 06/11/2023 revealed no mammographic evidence of malignancy (BI-RADS 2. Ultrasound of bilateral breasts on 06/12/2023 also revealed no suspicious findings (BI-RADS 1). Recommended ultrasound of the bilateral perla asts following her mammogram in May 2024. She should return in 1 year, sooner p.r.n.. Coding Level of Care Code Est Pt Level 3 (02922) Diagnoses Malignant neoplasm of upper-outer quadrant of left breast in female, estrogen receptor positive C50.412; Z17.0 Breast location: upper outer quadrant of breast Estrogen receptor status: positive Patient sex: female
[2023-10-11 09:02] VITALS: BP 117/61; PULSE 82; BMI 23.3
== END 2023-10-11 09:13 | disposition home or self-care (01) ==
PROVIDERS: PCP Family Medicine; Visit Provider Surgery
DX: C50.412 Malignant neoplasm of upper-outer quadrant of left female breast (principal); Z17.0 Estrogen receptor positive status [ER+]
CPT/HCPCS: 99213

== ENCOUNTER → 2023-10-11 08:55 | Outpatient (BNVA) | payer BC, SELFPAY | PROVIDERS: PCP Family Medicine; Visit Provider Surgery ==

== ENCOUNTER 2024-06-13 08:43 | Outpatient (REF) | payer MEDICARE, SELFPAY | END 2024-06-13 08:44 | disposition home or self-care (01) | LOC: HO.MAMMO 08:43 | PROVIDERS: PCP Family Medicine; Visit Provider Family Medicine | DX: Z12.31 Encounter for screening mammogram for malignant neoplasm of breast (principal) | CPT/HCPCS: 77063; 77067 ==

== ENCOUNTER → 2024-06-13 08:45 | Outpatient (BNV) | payer MEDICARE, SELFPAY | PROVIDERS: PCP Family Medicine; Visit Provider Internal Medicine | DX: Z12.31 Encounter for screening mammogram for malignant neoplasm of breast (principal) | CPT/HCPCS: 77063; 77067 ==

== ENCOUNTER 2024-06-27 11:36 | Outpatient (REF) | payer MEDICARE, SELFPAY ==
--- NOTE | ~2024-06-27 | MM_ITS ---
EXAMINATION: MM DIAGNOSTIC DIGITAL BREAST TOMOSYNTHESIS, LEFT Limited left breast ultrasound. CLINICAL INFORMATION: History of left breast cancer in 2019 status post lumpectomy. Call back from screening for asymmetry in the left breast on CC view. COMPARISON: Mammography: Comparison is made with available prior examinations. TECHNIQUE: Digital breast tomosynthesis is performed in both the craniocaudal and mediolateral oblique views along with computer-aided detection (CAD). Synthesized 2D images are generated from the tomosynthesis. Limited left breast ultrasound. FINDINGS: There are scattered areas of fibroglandular density (ACR BI-RADS breast composition Category b). Asymmetry in the lateral left breast posterior depth on CC view partially effaces on additional imaging projections. No suspicious calcifications or other abnormal findings. Targeted color Doppler ultrasound scanning from 1-5 o'clock demonstrates normal fibronodular breast tissue. There is no sonographic abnormal findings. MM/MM tomosynthesis added views L IMPRESSION: Asymmetry lateral left breast posterior depth on CC view which partially effaces and without sonographic correlate. Recommend 6 month follow-up left breast mammography for further evaluation of stability. ASSESSMENT: BI-RADS BI-RADS 3 - Probably benign finding(s) - 6 month follow-up suggested RECOMMENDATION: 6 Month F/U Results were provided to the patient at time of visit by the technologist. This patient's information was entered into a reminder system with a target due date for their next mammogram. Electronically signed by: Cierra Hussein DO 06/27/2024 12:37 PM GOMEZ
--- OUTSIDE RECORDS SUMMARY | 2024-06-27 12:38 | XMS_ITS | Patient Health Record ---
Author Organization [facility] Address [address] [place] [address] Care Team Providers Care Delivery Analyst Name Role Phone ANNEL SIMS M.D. Primary Care Provider Elen Troy Lindsay [phone] ALLERGIES Allergen (clinical drug ingredient) Drug/Non Drug Allergy documented on EMR Reaction Allergy Type Onset Date Status Sulfa Unknown Drug Allergy Active REASON FOR REFERRAL No Information MEDICATIONS Medication SIG (Take, Route, Frequency, Duration) Notes Start Date End Date Status Levothyroxine Sodium 88 MCG 1 tablet on an empty stomach in the morning Orally as directed Active Vitamin D 1 tablet Orally Once a day Active Tamoxifen Citrate 10 MG 1 tablet Orally Twice a day Active Sertraline HCl 100 MG 1 tablet Orally On ce a day Active IMMUNIZATIONS Vaccine Route Administration Date Status Comme nts Influenza Unknown 12/19/2017 Administered Influenza Unknown 04/11/2022 Administered SOCIAL HISTORY Tobacco Use: Social History Observation Description Date Details (start date - stop date) Never Smoker NA - NA Sex Assigned At : Social History Observation Description Sex Assigned At Unknown Tobacco Use/Smoking Question Answer Notes Patient is a nonsmoker Alcohol Screen Question Answer Notes Did you have a drink containing alcohol in the p ast year? No Points 0 Interpretation Negative PROBLEMS Problem Type ICD Code Onset Dates Problem Status W/U Status Risk SNOMED Code Notes Problem Encounter for screening for malignant neoplasm of colon (Z12.11) Active confirmed 323227782 Problem Pre-procedural examination (Z01.818) Active confirmed 318485764847133 Problem Irritable bowel syndrome, unspecified type (K58.9) Active confirmed 16358806 Problem Diverticulosis large intestine w/o perforation or abscess w/o bleeding (K57.30) Active confirmed Diverticul ar disease of colon (972855478) Encounters Encounter Location Date Provider Diagnosis [facility] [place] Out[place] [address] [place] [id number] 09/24/2023 Troy Martinez Encounter for scre ening colonoscopy Z12.11 and Diverticulosis large intestine w/o perforation or abscess w/o bleeding K57.30 ASSESSMENTS Encounter Date Diagnosis Assessment Notes Treatment Notes Treatment Clinical Notes 09/24/2023 Encounter for screening colonoscopy (ICD-10 - Z12.11) 09/24/2023 Diverticulosis large intestine w/o perforation or abscess w/o bleeding (ICD-10 - K57.30) PLAN OF TREATMENT Future Test Test Name Order Date COLONOSCOPY 03/19/2018 COLONOSCOPY 01/18/2023 Insurance Providers Payer Name Payer Address Payer Phone Subscriber Number Group Number Insured Name Patient Relationship to Insured Coverage Start Date Coverage End Date [facility] [address] [place], [place] [id number] SOM PALOMARES Self - patient is the insured MEDICAL (GENERAL) HISTORY Medical History History ICD Code Iron def anemia---10/2004--Ne g EGD with normal duodenal biopsies and Colonoscopy Panic attacks Hypothyroidism PVC'S---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 Fermin Denies [place],DM,CVA,Lung disease,renal dise ase Surgical History Surgery Date(Month/Year) Knee surgery Shoulder surgery--right shoulder replace ment in 2007 Pilonidal cyst Broken femur Rotator cuff Left lumpectomy for breast cancer with X RT 2018 Eye surgery and cataract surgery Broken left hip 09/2021
--- OUTSIDE RECORDS SUMMARY | 2024-06-27 12:38 | XMS_ITS ---
Author Organization [facility] Address [address] [place] [address] Care Team Providers Care Model Maker Scale Name Role Phone ANNEL SIMS M.D. Primary Care Provider Elen vailable Troy Martinez Unavailable [phone] REASON FOR VISIT colon screening PROBLEMS Problem Type ICD Code Onset Dates Problem Status W/U Status Risk SNOMED Code Notes Problem Diverticulosis large intestine w/o perforation or abscess w/o bleeding (K57.30) Active confirmed Diverticul ar disease of colon (299739335) Encounters Encounter Location Date Provider Diagnosis [facility] [place] [address] [place], [place] [phone] 09/24/2023 Troy Martinez Encounter for scre ening colonoscopy Z12.11 and Diverticulosis large intestine w/o perforation or abscess w/o bleeding K57.30 ASSESSMENTS Encounter Date Diagnosis Assessment Notes Treatment Notes Treatment Clinical Notes 09/24/2023 Encounter for screening colonoscopy (ICD-10 - Z12.11) 09/24/2023 Diverticulosis large intestine w/o perforation or abscess w/o bleeding (ICD-10 - K57.30) PLAN OF TREATMENT No Information
--- OUTSIDE RECORDS SUMMARY | 2024-06-27 12:38 | XMS_ITS ---
Author Organization [facility] Address [address] [place] [address] Care Team Providers Care Machine Operators Name Role Phone ANNEL SIMS M.D. Primary Care Provider Elen vailable Troy Martinez Unavailable [phone] REASON FOR VISIT screening Encounters Encounter Location Date Provider Diagnosis [facility] [place] [address] [place] [id number] 04/23/2023 Troy Martinez PLAN OF TREATMENT No Information
--- OUTSIDE RECORDS SUMMARY | 2024-06-27 12:38 | XMS_ITS ---
Author Organization [facility] Address [address] [place] [address] Care Team Providers Care Powder Coat Painter Name Role Phone ANNEL SIMS M.D. Primary Care Provider Elen Troy Lindsay [phone] ALLERGIES Allergen (clinical drug ingredient) Drug/Non Drug Allergy documented on EMR Reaction Allergy Type Onset Date Status Sulfa Unknown Drug Allergy Active REASON FOR VISIT Patient presents today for a screening colonoscopy MEDICATIONS Medication SIG (Take, Route, Frequency, Duration) Notes Start Date End Date Status Levothyroxine Sodium 88 MCG 1 tablet on an empty stomach in the morning Orally as directed Active Vitamin D 1 tablet Orally Once a day Active Tamoxifen Citrate 10 MG 1 tablet Orally Twice a day Active Sertraline HCl 100 MG 1 tablet Orally On ce a day Active SOCIAL HISTORY Tobacco Use: Social History Observation Description Date Details (start date - stop date) Never Smoker NA - NA Sex Assigned At : Social History Observation Description Sex Assigned At Unknown Tobacco Use/Smoking Question Answer Notes Patient is a nonsmoker Alcohol Screen Question Answer Notes Did you have a drink containing alcohol in the p ast year? No Points 0 Interpretation Negative VITAL SIGNS BMI 23.24 kg/m2 01/18/2023 Blood pressure systolic 000 mm Hg 01/19/20 23 Blood pressure diastolic 00 mm Hg 023 Height 66 in 01/18/2023 Temperature 97.5 degrees Fahrenheit 01/19/20 23 Weight 144 lbs 01/18/2023 Encounters Encounter Location Date Provider Diagnosis [facility] [address] [place] [address] 01/18/2023 Troy Martinez Encounter for screening for malignant neoplasm of colon Z12.11 and Pre-procedural examination Z01.818 ASSESSMENTS Encounter Date Diagnosis Assessment Notes Treatment Notes Treatment Clinical Notes 01/18/2023 Encounter for screening for malignant neoplasm of colon (ICD-10 - Z12.11) 01/18/2023 Pre-procedural examination (ICD-10 - Z01.818) PLAN OF TREATMENT Future Test Test Name Order Date COLONOSCOPY 01/18/2023 Next Appt Details Follow Up: prn, Reason: Progress Notes * Examination Category Sub-Category Detail Notes General Examination GENERAL APPEARANCE: pleasant , well nourished, well developed, in no acute distress HEAD: EYES: sclera non-icteric EARS: NOSE: THROAT: NECK/THYROID: no cervical lymphade nopathy, neck supple HEART: S1, S2 normal CHEST: LUNGS: clear to auscultatio n bilaterally ABDOMEN: normal bowel sounds, no guarding or rigidity, no guarding or rigidity, no masses palpable, soft, nontender, nondistended NEUROLOGIC: alert and oriented SKIN: nonjaundiced, no spi salas angiomata EXTREMITIES: no edema PERIPHERAL PULSES: BACK: BREASTS: MUSCULOSKELETAL: MALE GENITOURINARY: LYMPH NODES: RECTAL EXAM: FEMALE GENITOURINARY: ORAL CAVITY: mucosa moist
== END 2024-06-27 11:37 | disposition home or self-care (01) ==
LOC: HO.MAMMO 11:36
PROVIDERS: PCP Family Medicine; Visit Provider Family Medicine
DX: Z85.3 Personal history of malignant neoplasm of breast (principal); N64.89 Other specified disorders of breast
CPT/HCPCS: 76642; 77061; 77065

== ENCOUNTER → 2024-06-27 11:45 | Outpatient (BNV) | payer MEDICARE, SELFPAY | PROVIDERS: PCP Family Medicine; Visit Provider Internal Medicine | DX: N64.89 Other specified disorders of breast (principal) | CPT/HCPCS: 76642; 77065; G0279 ==

== ENCOUNTER 2024-07-18 08:59 | Outpatient (AMB) | payer MEDICARE, SELFPAY ==
[2024-07-18 09:04] VITALS: BP 145/66; PULSE 80; BMI 23.9
--- NOTE | 2024-07-18 09:04 | A.OFFVIS_ITS ---
Vital Signs 07/18/24 09:04 Height 5 ft 6 in Weight 148 lb BMI 23.9 BP 145/66 H Blood Pressure Location Rt brachial Position Sitting Pulse 80 Intake Visit Reasons: Follow up appt after bilat US appt Intake Note: Patient is seen in office for ultrasound and mammogram results & breast exam. Pt c/o: was told new finding on Lt br. Denies rash, nipple discharge, pain, tenderness. us/mm:06/27/24 History Faculty Member Required: No Accompanied by: Self / Same As Patient Allergies adhesive tape [ADHESIVE TAPE] Allergy (Intermediate, Verified 07/18/24 09:06) BLISTERS naproxen [Aleve] Allergy (Intermediate, Verified 07/18/24 09:06) diarrhea Sulfa (Sulfonamide Antibiotics) Allergy (Intermediate, Verified 07/18/24 09:06) RASH Medication List - Last Reconciled 07/18/24 by Jose Mazariegos MD calcium carbonate (Calcium 500) 500 mg PO DAILY cholecalciferol (vitamin D3) 25 mcg PO BID bmnkvprcrczm-olebqyehxzz-cicpb 1,000-200 mcg 1 tab PO DAILY levothyroxine 88 mcg PO DAILY sertraline 100 mg PO DAILY tamoxifen 10 mg PO BID HPI Comments Details: 69-year-old female patient returning for a breast cancer follow-up examination. She is a former patient of Dr. Camejo with a history of left breast infiltrating ductal carcinoma, grade 1, 1.5 cm, with DCIS, ER positive, AK negative, HER2 Niko negative. She underwent a left breast lumpectomy with needle localization and left axillary sentinel node biopsy on 06/18/2018 (pT1c N0 (sn)(i-)). She was evaluated by Dr. Scanlon. Oncotype DX score was 30 and chemotherapy was recommended. She sought a 2nd opinion and chemotherapy was not recommended. She elected not to take chemotherapy and completed radiation therapy in September 2018. She was started on tamoxifen in November 2018 with 10 mg twice daily. She continues to tolerate this well with no side effects. A screening mammogram performed on 06/13/2024 revealed a left breast asymmetry in the lateral breast posterior depth seen on the CC view. Additional imaging was recommended and obtained on 06/27/2024. Compression views of the left breast show the asymmetry to partially if face. No ultrasound correlate could be identified. This was felt to be low suspicion for malignancy (BI-RADS 3), and six-month follow-up mammogram of the left breast recommended. She denies any new breast symptoms. [facility] Medical History Post-operative nausea and vomiting PVCs (premature ventricular contractions) Hx of skin cancer, basal cell (~10/19/22) Basal cell carcinoma (BCC) in situ of skin (~10/19/22) History of fracture of arm Hx of fracture of femur Osteoporosis Hypothyroidism Breast cancer, left Surgical History H/O colonoscopy History of excision of lesion (10/2022) History of hip replacement History of Mohs surgery for squamous cell carcinoma of skin (03/2021) Hx of rotator cuff surgery History of left knee surgery History of lumpectomy of left breast History of total replacement of right shoulder joint Family History Maternal Grandmother Diabetes Father HTN (hypertension) Stroke Mother Pulmonary fibrosis HTN (hypertension) Sister HTN (hypertension) Family/Other Acute Crohn's disease Paternal Uncle Stomach cancer Social History Household Members: None Housing: Apartment Are you a primary before and after school daycare worker to a significant other at home: No Do you presently have visiting nurse or other home services: No Alcohol intake: former Patient Tobacco Use Status: Never used Tobacco Second Hand Smoke Exposure: No service: No Current occupational status: employed Review of Systems Const All systems reviewed & are unremarkable except as noted in HPI and below Card Denies chest pain, Denies rapid heart rate and Denies irregular heart rhythm Resp Reports no additional complaints Denies nipple discharge Skin/Breast Denies breast swelling, Denies breast skin changes, Denies breast pain, Denies breast mass, Denies change in breast shape, Denies change in pigmentation and Denies nipple discharge Marcelo/Lymph Denies lymphadenopathy Physical Exam Vital Signs: Last Vital Signs Pulse 80 07/18/24 09:04 BP 145/66 H 07/18/24 09:04 BMI result Body Mass Index 23.9 Const General: no acute distress and well developed Nutritional Appearance: well nourished Orientation/consciousness: patient oriented x3 Limitations: no limitations HEENT Head: Yes normocephalic Ears: hearing grossly normal bilaterally Chest Other: Left breast: No skin change, no nipple retraction, no nipple discharge, no palpable mass, no enlarged lymph nodes. Well-healed incision in the lower outer quadrant left breast with no palpable mass and only minimal residual scar tissue. Right breast: No skin change, no nipple retraction, no nipple discharge, no palpable mass, no enlarged lymph nodes. Resp Effort & Inspection: normal respiratory effort, no audible wheezes and no cough GI Inspection: Yes normal to inspection Palpation (GI): Soft to palpation Auscultation: normal bowel sounds Skin General skin exam: no rashes or lesions noted Neuro Other: Mobility Assessment: 1. 3 meter assessment time (seconds): 5 2. Gait observations: Normal balance and gait General: patient oriented x3 Extrem General: Yes no clubbing, cyanosis or edema Assessment & Plan Assessment & Plan (1) Breast cancer, left: Code(s): C50.912 - Malignant neoplasm of unspecified site of left female breast Category: Medical Qualifiers: Breast location: upper outer quadrant of breast Estrogen receptor status: positive Patient sex: female Qualified Code(s): C50.412 - Malignant neoplasm of upper-outer quadrant of left female breast; Z17.0 - Estrogen rec eptor positive status [ER+] Plan: 69-year-old female patient, former patient of Dr. Camejo returning for a breast cancer follow-up. She is S/P left breast lumpectomy with needle localization, left sentinel node biopsy on 06/18/2018. This was followed by radiation therapy and tamoxifen. She continues to do well but did have some skin changes in the right breast at the upper outer quadrant which have now resolved. Examination today reveals no suspicious findings in either breast. Her most recent mammogram of 06/13/2024 and 06/27/2024 revealed an asymmetric density in the upper outer quadrant posterior depth which partially effaced with compression views. This was not identified by ultrasound. This was felt to be low suspicion for malignancy and six-month follow-up left breast mammogram is recommended. The patient asked questions regarding bilateral prophylactic mastectomies and we discussed the relative risks and benefits. She will think about this further. I recommended follow-up in 1 year. Coding Level of Care Code Est Pt Level 3 (62060) Complex EM visit Add On G2211 Diagnoses Malignant neoplasm of upper-outer quadrant of left breast in female, estrogen receptor positive C50.412; Z17.0 Breast location: upper outer quadrant of breast Estrogen receptor status: positive Patient sex: female
--- OUTSIDE RECORDS SUMMARY | 2024-07-18 09:23 | XMS_ITS ---
Author Organization [facility] Address [address] [place] [address] Care Team Providers Care Process Design Chemical Engineer Name Role Phone ANNEL SIMS M.D. Primary Care Provider Elen vailable Troy Martinez Unavailable [phone] REASON FOR VISIT screening Encounters Encounter Location Date Provider Diagnosis [facility] [place] Out[place] [address] [place] [id number] 04/23/2023 Troy Martinez PLAN OF TREATMENT No Information
--- OUTSIDE RECORDS SUMMARY | 2024-07-18 09:24 | XMS_ITS ---
Author Organization [facility] Address [address] [place] [address] Care Team Providers Care Towboat Engineer Name Role Phone ANNEL SIMS M.D. Primary Care Provider Troy Wisdom [phone] ALLERGIES Allergen (clinical drug ingredient) Drug/Non Drug [...] No Points 0 Interpretation Negative VITAL SIGNS Temperature 97.5 degrees Fahrenheit 01/19/20 23 Blood pressure systolic 000 mm Hg 01/19/20 23 Blood pressure diastolic 00 mm Hg 023 Height 66 in 01/18/2023 Weight 144 lbs 01/18/2023 BMI 23.24 kg/m2 01/18/2023 Encounters Encounter Location Date Provider Diagnosis [facility] [address] [place] [address] 01/18/2023 Troy Martinez Encounter for screening for [...]
--- OUTSIDE RECORDS SUMMARY | 2024-07-18 09:24 | XMS_ITS ---
Author Organization [facility] Address [address] [place] [address] Care Team Providers Care Weatherization Director Name Role Phone ANNEL SIMS M.D. Primary Care Provider Elen vailable Troy Martinez Unavailable [phone] REASON FOR VISIT colon screening PROBLEMS Problem Type ICD Code Onset Dates Problem Status W/U Status Risk SNOMED Code Notes Problem Diverticulosis large intestine w/o perforation or abscess w/o bleeding (K57.30) Active confirmed Diverticul ar disease of colon (301842920) Encounters Encounter Location Date Provider Diagnosis [facility] [place] Out[place] [address] [place], [place] [phone] 09/24/2023 Troy Martinez Encounter for scre ening [...]
--- OUTSIDE RECORDS SUMMARY | 2024-07-18 09:24 | XMS_ITS | Patient Health Record ---
Author Organization [facility] Address [address] [place] [address] Care Team Providers Care Maint Mechanic Name Role Phone ANNEL SIMS M.D. Primary Care Provider Elen Troy Lindsay [phone] ALLERGIES Allergen (clinical drug ingredient) Drug/Non Drug [...] malignant neoplasm of colon (Z12.11) Active confirmed 665032624 Problem Pre-procedural examination (Z01.818) Active confirmed 023840593537018 Problem Irritable bowel syndrome, unspecified type (K58.9) Active confirmed 23094717 Problem Diverticulosis large intestine w/o perforation or abscess w/o bleeding (K57.30) Active confirmed Diverticul ar disease of colon (959975613) Encounters Encounter Location Date Provider [place] [facility] [place] [address] [place] [id number] 09/24/2023 Troy Martinez Encounter for scre ening [...] Insured Coverage Start Date Coverage End Date [facility] [address] [place], [place] [id number] SOM PALOMARES Self - patient is the insured MEDICAL (GENERAL) HISTORY Medical History History ICD Code Iron def anemia---10/2004--Ne g EGD with normal duodenal biopsies and Colonoscopy Panic attacks Hypothyroidism PVC'S---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 Fermin Denies [place],DM,CVA,Lung disease,renal dise ase Surgical History Surgery Date(Month/Year) Knee surgery Shoulder surgery--right shoulder replace ment in 2007 Pilonidal cyst Broken femur Rotator cuff Left lumpectomy for breast cancer with X RT 2018 Eye surgery and cataract surgery Broken left hip 09/2021
== END 2024-07-18 09:21 | disposition home or self-care (01) ==
PROVIDERS: PCP Family Medicine; Visit Provider Surgery
DX: C50.412 Malignant neoplasm of upper-outer quadrant of left female breast (principal); Z17.0 Estrogen receptor positive status [ER+]
CPT/HCPCS: 99213; G2211

== ENCOUNTER → 2024-07-18 08:59 | Outpatient (BNVA) | payer MEDICARE, SELFPAY | PROVIDERS: PCP Family Medicine; Visit Provider Surgery | DX: C50.412 Malignant neoplasm of upper-outer quadrant of left female breast (principal); Z17.0 Estrogen receptor positive status [ER+] | CPT/HCPCS: 99212 ==

== ENCOUNTER 2024-11-18 08:42 | Outpatient (REF) | payer MEDICARE, SELFPAY ==
--- OUTSIDE RECORDS SUMMARY | 2023-09-24 03:30 | XMS_ITS ---
Author Organization [facility] [place] [facility] Address [address] [place] [address] Care Team Providers Care Cat Operator Name Role Phone ANNEL SIMS M.D. Primary Care Provider Elen vailable Troy Martinez [phone] REASON FOR VISIT colon screening Problems Problem Type SNOMED Code ICD Code Onset Dates Problem Status W/U Status Risk Notes Problem Diverticulosis large intestine w/o perforation or abscess w/o bleeding (K57.30) Active confirmed Encounters Encounter Location Date Provider Diagnosis [facility] [place] [address] [place] [phone] 09/24/2023 Troy Martinez Encounter for scre ening [...] Notes * SOM PALOMARESDOB:[birth year] (69 yo F)Acc No.[id number]:09/24/2023 COLON WITH MAC Patient: SOM SANCHEZ Provider: Shakira Martinez MD :1955 A ge:68 Y S ex:Female Date:09/24/2023 Address:[address] [place], [place] [phone] Pcp:ANNEL SIMS M.D. Subjective: * Chief Complaints: [...] 09/24/2023 Generated for Leelee costello/Christine/Laiitting on: 0 11/18/2024 08:51 AM EDT
--- NOTE | ~2024-11-18 | MM_ITS ---
EXAMINATION: DXA BONE DENSITY AXIAL HISTORY: M81.8 TECHNIQUE: [employer] Dual energy absorptiometry (DEXA) of the lumbar spine, total right hip, and femoral neck was performed. COMPARISON: Comparison is made with the prior examination dated 11/16/2022. FINDINGS: The bone mineral density of the lumbar spine is 0.916 g/cm2, corresponding to a T-score of -2.4, and a Z-score of -0.7. This is indicative of osteopenia. This represents a BMD change of -3.2% compared to the prior exam. This is not statistically significant. The bone mineral density of the right total hip is 0.753 g/cm2, corresponding to a T-score of -2.0, and a Z-score of -0.5. This is indicative of osteopenia. This represents a BMD change of 26.3% compared to the prior exam. This is statistically significant. The bone mineral density of the right femoral neck is 0.815 g/cm2, corresponding to a T-score of -1.6, and a Z-score of 0.1. This is indicative of osteopenia. This represents a BMD change of 33.2% compared to the prior exam. MM/XR DEXA axial skeleton IMPRESSION: Based on bone mineral density, and according to World Health Organization (WHO) criteria, the diagnosis is consistent with osteopenia. Statistically, 68% of repeat scans fall within 1 SD (+/- 0.010 g/cm2 for AP spine L1-L4) and 1 SD (+/- 0.012 g/cm2 for femur total) FRAX is a trademark of the [employer], a World Health Organization (WHO) Collaborating Center. Electronically signed by: Troy Robbins MD 11/18/2024 09:44 AM EDT
== END 2024-11-18 08:43 | disposition home or self-care (01) ==
LOC: HO.MAMMO 08:42
PROVIDERS: PCP Family Medicine; Visit Provider Internal Medicine Endocrinology, Diabetes & Metabolism
DX: M81.8 Other osteoporosis without current pathological fracture (principal)
CPT/HCPCS: 77080

== ENCOUNTER → 2024-11-18 08:45 | Outpatient (BNV) | payer MEDICARE, SELFPAY | PROVIDERS: PCP Family Medicine; Visit Provider Radiology Diagnostic Radiology | DX: E28.39 Other primary ovarian failure (principal) | CPT/HCPCS: 77080 ==

== ENCOUNTER 2024-12-23 10:51 | Outpatient (REF) | payer MEDICARE, SELFPAY ==
--- OUTSIDE RECORDS SUMMARY | 2023-09-24 03:30 | XMS_ITS ---
Author Organization [facility] Address [address] [place] [address] Care Team Providers Care Inventory Control Supervisor Name Role Phone ANNEL SIMS M.D. Primary Care Provider Elen vailable Troy Martinez [phone] REASON FOR VISIT colon screening Problems Problem Type SNOMED Code ICD Code Onset Dates Problem Status W/U Status Risk Notes Problem Diverticulosis large intestine w/o perforation or abscess w/o bleeding (K57.30) Active confirmed Encounters Encounter Location Date Provider Diagnosis [facility] [place] [address] [place] [phone] 09/24/2023 Troy Martinez Encounter for scre ening [...] Of Treatment No Information Progress Notes * SOM PALOMARESDOB:[birth year] (69 yo F)Acc No.[id number]:09/24/2023 COLON WITH MAC Patient: SOM SANCHEZ Provider: Shakira Martinez MD :1955 A ge:68 Y S ex:Female Date:09/24/2023 Address:[address] [place], [place] [phone] Pcp:ANNEL SIMS M.D. Subjective: * Chief Complaints: [...] provider. Sign off status: Pending * Provider: Sahkira Martinez MD Date: 0 09/24/2023 Generated for Leelee costello/Christine/Laiitting on: 0 12/23/2024 11:36 AM EDT
--- NOTE | ~2024-12-23 | MM_ITS ---
EXAMINATION: MM DIAGNOSTIC DIGITAL BREAST TOMOSYNTHESIS, LEFT CLINICAL INFORMATION: 6-month follow-up of left breast asymmetry in the lateral breast posterior depth on the CC view without definite sonographic correlate. COMPARISON: Comparison made to multiple prior, most recent left diagnostic mammogram/ultrasound on June 27, 2024, and most remote June 05, 2022. TECHNIQUE: Digital breast tomosynthesis is performed in craniocaudal view along with computer-aided detection (CAD). Synthesized 2D images are generated from the tomosynthesis. Spot compression tomosynthesis also obtained. FINDINGS: BREAST COMPOSITION: The breasts are heterogeneously dense, which may obscure small masses (ACR BI-RADS breast composition Category c). LEFT BREAST: Asymmetry in the lateral breast posterior depth on the CC view that partially effaces with spot compression is unchanged from prior study from June 2024. MM/MM diagnostic mammo unilat LT IMPRESSION: LEFT BREAST: Asymmetry in the lateral left breast posterior depth on the CC view which partially effaces with spot compression, unchanged from prior study. Probably benign. A 6-month follow-up is recommended as bilateral diagnostic mammogram expected in May 2025. ASSESSMENT: BI-RADS 3 - Probably benign finding(s) - 6 month follow-up suggested RECOMMENDATION: 6 Month F/U Results were provided to the patient at time of visit by the technologist. This patient's information was entered into a reminder system with a target due date for their next mammogram. Electronically signed by: Sage Wilson MD 12/23/2024 11:46 AM EDT
--- OUTSIDE RECORDS SUMMARY | 2024-12-23 11:36 | XMS_ITS | Encounter Summary ---
Author Organization [facility] Address [address] [place] [address] Phone Care Team Providers Care Canine Service Instructor Trainer Name Role Phone Bull Fajardo MD Primary Care Provider +- [phone] Radha Zurita MD Primary Care Provid er Michelle Fitzgerald MD Primary Care Provider +1 [phone] Encounter Details Date Type Department Care Team (Late Contact Info) Description 06/28/2018 Ancillary Orders [facility],Outside Imaging [address] [place], [place] [id number] System, Provider [place] In, [place] [address] Social History Tobacco Use Types Packs/Day Years Used Date Smoking Tobacco: Former Smokeless Tobacco: Never Alcohol Use Standard Drinks/Week Comments No 0 (1 standard drink = 0.6 oz pur e alcohol) sober since 04/05/95 Comments Unknown Sex and Gender Information Value Date Recorded Sex Assigned at Female 07/15/2019 3:17 PM EST Legal Sex Female 9:56 PM EDT Gender Identity Female 07/15/2019 3:17 PM EST Sexual Orientation Straight 09/20/2021 6: 46 PM EDT documented as of this encounter Plan of Treatment Upcoming Encounters Date Type Department Care Team (Late Contact Info) Description 01/28/2025 8:50 AM EDT Office Visit [facility] [address] [place] [address] Jose Yuen DO [address] [place] [address] [email or web address] documented as of this encounter Results * US Breast Outside (No Interpretation) (05/29/2018 12:00 AM EST) Narrative SYSTEMGENERATED, DOCUMENTATION - 06/28/2018 1:25 PM EST This study is for PACS storage only and not for interpretation. us Provider Not In System PhD IMG OUTSIDE IMAGING W /OUT INTERPRETATION Final Result documented in this encounter Visit Diagnoses Not on filedocumented in this encounter Additional Health Concerns Infection Onset Date Last Indicated Resolved Time CoV-Exposed Comment:Recent close contact documented in the Travel/Symptom Screening Form ED exposure: pt in another bed was positive however, curtains were pulled and stretchers more than 6 feet apart, so did not meet exposure definition 09/20/2021 09/20/2021 09/21/2021 3:52 PM E DT Assessment Noted Time PHQ-2 Depression Total Score: 0 04/23/20 18 4:18 PM EST documented as of this encounter Care Teams Canine Service Instructor Trainer Relationship Specialty Start Date End Date Bull Fajardo MD [address] [place] [phone] [email or web address] PCP - General 05/24/1711/30 Radha Zurita MD [address] [place] [address] [email or web address] PCP - General Family Medicine 12/01/21 1 07/18/21 Michelle Fitzgerald MD [address] [place] [address] [email or web address] PCP - General Family Medicine 05/18/22 documented as of this encounter Additional Source Comments The information contained in this document represents components of the legal health record. It is not the complete legal health record.[facility]
== END 2024-12-23 10:52 | disposition home or self-care (01) ==
LOC: HO.MAMMO 10:51
PROVIDERS: PCP Family Medicine; Visit Provider Family Medicine
DX: R92.8 Other abnormal and inconclusive findings on diagnostic imaging of breast (principal)
CPT/HCPCS: 77062; 77065

== ENCOUNTER → 2024-12-23 11:00 | Outpatient (BNV) | payer MEDICARE, SELFPAY | PROVIDERS: PCP Family Medicine; Visit Provider Radiology Body Imaging | DX: R92.8 Other abnormal and inconclusive findings on diagnostic imaging of breast (principal) | CPT/HCPCS: 77065; G0279 ==

== ENCOUNTER 2025-01-20 13:22 | Outpatient (AMB) | payer MEDICARE, SELFPAY ==
--- NOTE | 2025-01-20 13:31 | MHC.OFFVIS ---
Intake Visit Reasons: mammo results Intake Note: Patient is seen in office for mammogram results. Pt c/o: has a spot that shows on the mammogram on the left breast that is being monitored, would like to have a biopsy of that area, instead of repeat mammogram Logistics Engineering Manager Required: No Band Booker: Band Booker Present Accompanied by: Self / Same As Patient Allergies adhesive tape (ADHESIVE TAPE) Allergy (Intermediate, Verified 01/20/25 13:43) BLISTERS naproxen (Aleve) Allergy (Intermediate, Verified 01/20/25 13:43) diarrhea Sulfa (Sulfonamide Antibiotics) Allergy (Intermediate, Verified 01/20/25 13:43) RASH Medication List - Last Reconciled 01/20/25 by Jose Mazariegos MD calcium carbonate (Calcium 500) 500 mg PO DAILY cholecalciferol (vitamin D3) 25 mcg PO BID bkzwyubhqcvw-gphfursvayz-uxuxb 1,000-200 mcg 1 tab PO DAILY levothyroxine 88 mcg PO DAILY sertraline 100 mg PO DAILY tamoxifen 10 mg PO BID HPI Comments Details: 69-year-old female patient returning for a breast cancer follow-up examination. She is a former patient of Dr. Camejo with a history of left breast infiltrating ductal carcinoma, grade 1, 1.5 cm, with DCIS, ER positive, W[place] negative, HER2 Niko negative. She underwent a left breast lumpectomy with needle localization and left axillary sentinel node biopsy on 06/18/2018 (pT1c N0 (sn)(i-)). She was evaluated by Dr. Scanlon. Oncotype DX score was 30 and chemotherapy was recommended. She sought a 2nd opinion and chemotherapy was not recommended. She elected not to take chemotherapy and completed radiation therapy in September 2018. She was started on tamoxifen in November 2018 with 10 mg twice daily. She continues to tolerate this well with no side effects. A screening mammogram performed on 06/13/2024 revealed a left breast asymmetry in the lateral breast posterior depth seen on the CC view. Additional imaging was recommended and obtained on 06/27/2024. Compression views of the left breast show the asymmetry to partially if face. No ultrasound correlate could be identified. This was felt to be low suspicion for malignancy (BI-RADS 3), and six-month follow-up mammogram of the left breast recommended. Six-month follow-up was performed on 12/23/2024. This again revealed no significant change in the asymmetry and six-month follow-up bilateral diagnostic mammograms for recommended (BI-RADS 3). The patient has indicated that she does not want to continue to watch this and would prefer to have it biopsied sooner than later. [facility] Medical History Post-operative nausea and vomiting PVCs (premature ventricular contractions) Hx of skin cancer, basal cell (~10/19/22) Basal cell carcinoma (BCC) in situ of skin (~10/19/22) History of fracture of arm Hx of fracture of femur Osteoporosis Hypothyroidism Breast cancer, left Surgical History H/O colonoscopy History of excision of lesion (10/2022) History of hip replacement History of Mohs surgery for squamous cell carcinoma of skin (03/2021) Hx of rotator cuff surgery History of left knee surgery History of lumpectomy of left breast History of total replacement of right shoulder joint Family History Maternal Grandmother Diabetes Father HTN (hypertension) Stroke Mother Pulmonary fibrosis HTN (hypertension) Sister HTN (hypertension) Family/Other Acute Crohn's disease Paternal Uncle Stomach cancer Social History Household Members: None Housing: Apartment Are you a primary restorative care technician to a significant other at home: No Do you presently have visiting nurse or other home services: No Alcohol intake: former Patient Tobacco Use Status: Never used Tobacco Second Hand Smoke Exposure: No service: No Current occupational status: employed Review of Systems Const All systems reviewed & are unremarkable except as noted in HPI and below Physical Exam Const General: no acute distress and well developed Nutritional Appearance: well nourished Orientation/consciousness: patient oriented x3 Limitations: no limitations HEENT Head: Yes normocephalic Ears: hearing grossly normal bilaterally Chest Other: Left breast: No skin change, no nipple retraction, no nipple discharge, no palpable mass, no enlarged lymph nodes. Well-healed incision in the lower outer quadrant left breast with no palpable mass and only minimal residual scar tissue. Right breast: No skin change, no nipple retraction, no nipple discharge, no palpable mass, no enlarged lymph nodes. Resp Effort & Inspection: normal respiratory effort, no audible wheezes and no cough GI Inspection: Yes normal to inspection Palpation (GI): Soft to palpation Auscultation: normal bowel sounds Skin General skin exam: no rashes or lesions noted Neuro Other: Mobility Assessment: 1. 3 meter assessment time (seconds): 5 2. Gait observations: Normal balance and gait General: patient oriented x3 Extrem General: Yes no clubbing, cyanosis or edema Assessment & Plan Assessment & Plan (1) Breast cancer, left: Code(s): C50.912 - Malignant neoplasm of unspecified site of left female breast Category: Medical Qualifiers: Breast location: upper outer quadrant of breast Estrogen receptor status: positive Patient sex: female Qualified Code(s): C50.412 - Malignant neoplasm of upper-outer quadrant of left female breast; Z17.0 - Estrogen receptor positive status [ER+] (2) Abnormal mammogram of left breast: Code(s): R92.8 - Other abnormal and inconclusive findings on diagnostic imaging of breast Category: Medical Plan 69-year-old female patient, former patient of Dr. Camejo returning for a breast cancer follow-up. She is S/P left breast lumpectomy with needle localization, left sentinel node biopsy on 06/18/2018. This was followed by radiation therapy and tamoxifen. She continues to do well but did have some skin changes in the right breast at the upper outer quadrant which have now resolved. Examination today reveals no suspicious findings in either breast. Her most recent mammogram of 12/23/2024 revealed an asymmetric density in the upper outer quadrant posterior depth which partially effaced with compression views which has not changed significantly since her last mammogram. Patient indicates that she is not interested in continuing to watch this lesion and would prefer to have a biopsy done sooner than later. I discussed the stereotactic guided core biopsy as a possible option and she agrees with this plan. [facility] She will follow-up to review the results once complete. Orders: Orders MM stereotactic biopsy LT Today C50.412 - Malignant neoplasm of upper-outer quadrant of left female breast, R92.8 - Other abnormal and inconclusive findings on diagnostic imaging of breast, Z17.0 - Estrogen receptor positive status [ER+] Coding Level of Care Code Est Pt Level 3 (28956) Complex EM visit Add On G2211 Diagnoses Malignant neoplasm of upper-outer quadrant of left breast in female, estrogen receptor positive C50.412; Z17.0 Breast location: upper outer quadrant of breast Estrogen receptor status: positive Patient sex: female Abnormal mammogram of left breast R92.8
--- OUTSIDE RECORDS SUMMARY | 2025-01-20 14:38 | XMS_ITS | Encounter Summary ---
Author Organization [facility] Address [address] [place] [phone] Phone Care Team Providers Care Traffic Operations Engineer Name Role Phone Bull Fajardo MD Primary Care Provider [phone]- [phone] Radha Zurita MD Primary Care Provid er Michelle Fitzgerald MD Primary Care Provider [phone] Encounter Details Date Type Department Care Team (Late st Contact Info) Description 04/26/2018 Ancillary Orders [facility] Internal Medicine [address] [place] [phone] Bull Fajardo MD [address] [place] [phone] [email or web address] Pain in both hands Social History Tobacco Use Types Packs/Day Years [...] Encounters Date Type Department Care Team (Late st Contact Info) Description 01/28/2025 8:50 AM EDT Office Visit [facility] [address] [place] [address] Jose Yuen, [address] [place] [phone] [email or web address] documented as of this encounter Results * XR HAND 3 OR MORE VIEWS (BILATERAL) (04/26/2018 10:07 AM EST) Anatomical Region Laterality Modality Hand Left Radiographic Karina ging 04/26/2018 11:0 5 AM EST Impressions 04/26/2018 11:12 AM EST No significant changes from 06/23/2017. POS - [id number] Narrative 04/26/2018 11:12 AM EST HISTORY: Bilateral pain. COMPARISON: Right and left hand x-rays 06/23/2017. VIEWS: Total three views obtained of each hand and wrist in an arthritis series. FINDINGS: Left: Joint space narrowing, mild subchondral sclerosis and spurring at the lateral intercarpal joints is stable. Stable moderate marginal spurring, joint space narrowing and mild subchondral sclerosis at the first carpal metacarpal joint. Minimal spurring at multiple other joints. No evidence of erosions. No fractures, subluxations or dislocations. No suspicious lytic or blastic lesions within the bones. No suspicious soft tissue calcifications. No other significant changes. Right: Minimal spurring at the first carpal metacarpal joint and lateral intercarpal joints stable. Minimal spurring at other joints. No evidence of erosions. No fractures, subluxations or dislocations. No suspicious lytic or blastic lesions within the bones. No suspicious soft tissue calcifications. No other significant changes. Procedure Note Nader Bahena MD - 04/26/2018 HISTORY: Bilateral pain. COMPARISON: Right and left hand x-rays 06/23/2017. VIEWS: Total three views obtained of each hand and wrist in an arthritisseries. FINDINGS: Left: Joint space narrowing, mild subchondral sclerosis and spurring atthe lateral intercarpal joints is stable. Stable moderate marginalspurring, joint space narrowing and mild subchondral sclerosis at thefirst carpal metacarpal joint. Minimal spurring at multiple other joints.No evidence of erosions. No fractures, subluxations or dislocations. Nosuspicious lytic or blastic lesions within the bones. No suspicious softtissue calcifications. No other significant changes. Right: Minimal spurring at the first carpal metacarpal joint and lateralintercarpal joints stable. Minimal spurring at other joints. No evidenceof erosions. No fractures, subluxations or dislocations. No suspiciouslytic or blastic lesions within the bones. No suspicious soft tissuecalcifications. No other significant changes. IMPRESSION: No significant changes from 06/23/2017. POS - [id number] Bull Fajardo MD IMG XR UPPER EXTREMITY Fin al Result documented in this encounter Visit Diagnoses Diagnosis Pain in both hands Pain in both hands documented in this encounter Additional Health Concerns Infection [...] documented as of this encounter Care Teams Traffic Operations Engineer Relationship Specialty Start Date End Date Bull Fajardo MD [address] [place] [phone] [email or web address] PCP - General 05/24/1711/30 Radha Zurita MD [address] [place] [phone] [email or web address] PCP - General Family Medicine 12/01/21 1 07/18/21 Michelle Fitzgerald MD [address] [place] [phone] (work) [email or web address] PCP - General Family Medicine 05/18/22 documented as of this encounter Additional Source Comments The information contained in this document represents components of the legal health record. It is not the complete legal health record.[facility]
--- OUTSIDE RECORDS SUMMARY | 2025-01-20 14:38 | XMS_ITS | Encounter Summary ---
Author Organization [facility] Address [address] [place] [address] Phone Care Team Providers Care Paperhanger Name Role Phone Bull Fajardo MD Primary Care Provider +- [phone] Radha Zurita MD Primary Care Provid er Michelle Fitzgerald MD Primary Care Provider [phone] Encounter Details Date Type Department Care Team (Late Contact Info) Description 06/28/2018 Ancillary Orders [facility],Outside Imaging [address] [place], [place] [phone] System, Provider Not In, [place] [address] Social History Tobacco Use Types Packs/Day Years [...] 8:50 AM EDT Office Visit [facility] [address] [place] [address] Jose Yuen DO [address] [place] [address] documented as of this encounter Results * US Breast Outside (No Interpretation) (06/04/2018 12:00 AM EST) Narrative SYSTEMGENERATED, DOCUMENTATION - 06/28/2018 1:23 PM EST This study is for PACS [...] documented as of this encounter Care Teams Paperhanger Relationship Specialty Start Date End Date Bull Fajardo MD [address] [place] [phone] [email or web address] PCP - General 05/24/1711/30 Radha Zurita MD [address] [place] [phone] [email or web address] PCP - General Family Medicine 12/01/21 1 07/18/21 Michelle Fitzgerald MD [address] [place] [phone] [email or web address] PCP - General Family Medicine 05/18/22 documented as of this encounter Additional Source Comments The information contained in this document represents components of the legal health record. It is not the complete legal health record.[facility]
--- OUTSIDE RECORDS SUMMARY | 2025-01-20 14:38 | XMS_ITS | Encounter Summary ---
Author Organization [facility] Address [address] [place] [address] Phone Care Team Providers Care Washing Machine Striper Name Role Phone Bull Fajardo MD Primary Care Provider +- [phone] Radha Zurita MD Primary Care Provid er Michelle Fitzgerald MD Primary Care Provider [phone] Encounter Details Date Type Department Care Team (Late Contact Info) Description 06/28/2018 Ancillary Orders [facility],Outside Imaging [address] [place], [place] [phone] System, Provider Not In, [place] [address] Social History Tobacco Use Types Packs/Day Years [...] 8:50 AM EDT Office Visit [facility] [address] [place] [address] Jose Yuen DO [address] [place] [address] [email or web address] documented as of this encounter Results * Mammogram Outside (No Interpretation) (06/04/2018 12:15 AM EST) Narrative SYSTEMGENERATED, DOCUMENTATION - 06/28/2018 1:24 PM EST This study is for PACS [...] documented as of this encounter Care Teams Washing Machine Striper Relationship Specialty Start Date End Date Bull Fajardo MD [address] [place] [phone] [email or web address] [email or web address] - General 05/24/1711/30 Radha Zurita MD [address] [place] [phone] [email or web address] PCP - General Family Medicine 12/01/21 1 07/18/21 Michelle Fitzgerald MD [address] [place] [phone] [email or web address] PCP - General Family Medicine 05/18/22 documented as of this encounter Additional Source Comments The information contained in this document represents components of the legal health record. It is not the complete legal health record.[facility]
--- OUTSIDE RECORDS SUMMARY | 2025-01-20 14:38 | XMS_ITS | Clinical Summary ---
Author Organization [facility] Address [address] [place] [phone] Phone Care Team Providers Care Compressed Gas Tester Name Role Phone Michelle Fitzgerald MD Primary Care Provider + [phone] Allergies Active Allergy Reactions Criticality Noted Date Comments Naproxen Sodium Diarrhea 06/21/2017 [facility] Upset 06/21/2017 Sulfa (Sulfonamide Antibiotics) Rash Low 05/2017 Adhesive Tape-Silicones 07/24/2018 Medications tamoxifen (NOLVADEX) 10 MG tablet Take 10 mg by mouth 2 (two) times a day. Active sertraline (ZOLOFT) 100 MG tablet Take 1 tablet (100 mg total) by mouth daily. 90 tablet 3 09/13/19 Active aspirin 81 MG EC tablet [The details of the medication are not available because there are pending changes by a home health clinician.] 60 tablet 1 09/25/19 22 Active Additional Information Patient not taking.Reason: Therapy complete (per PA at follow up appt), Informant: Self, Reported on 10/31/2021 levothyroxine (SYNTHROID, LEVOTHROID) 88 MCG tabletIndications: Acquired hypothyroidism TAKE 1 TABLET BY MOUTH DAILY, & TAKE ADDITIONAL 1/2 ONCE EVERY WEEK DIRECTED 99 tablet 12/21/19 Active ibuprofen (ADVIL,MOTRIN) 100 mg/5 mL suspension Take 200 mg by mouth every 6 (six) hours as needed for mild pain or 1-3 (on a general 0-10 scale). Takes 2 pills every morning Active alendronate (FOSAMAX) 70 MG tabletIndications: Other osteoporosis without current pathological fracture Take 1 tablet (70 mg total) by mouth every 7 days. Take in the morning with a full glass of water, on an empty stomach, and do not take anything else by mouth or lie down for the next 30 min. 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 Scanlon for breast cancer. I asked her to speak with Dr. Scanlon about her polyclonal mood, apathy found on serum protein electrophoresis. Anemia 09/23/2021 Assessment & Plan (09/26/2021 8:13 PM EDT): - Acute blood loss anemia hemoglobin down significantly from her previous surgery labs -Appears to be reached a plateau - up to 8.5 - likely anemia contributed to vasovagal episode today, above transfusion criteria, will attempt therapy again tomorrow Hip fracture, left 09/21/2021 Assessment & Plan (09/25/2021 7:13 PM EDT): - Continue acetaminophen for pain has oxycodone available as needed -Continue PT OT Panic disorder 01/28/2019 Breast cancer 06/04/2018 Overview (09/09/2018): invasive ductal carcinoma left breast, MSBR grade 1, ER+, DE-, HER2-; lumpectomy + sentinel lymph node biopsy 06/18/18 Assessment & Plan (09/22/2021 2:32 PM EDT): - resumed tamoxifen NATHANAEL positive 04/23/2018 Overview (04/23/2018): Weakly Premature ventricular beats 04/23/2018 Acquired hypothyroidism 06/21/2017 Assessment & Plan (09/21/2021 1:28 PM EDT): Continue levothyroxine. 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 Yuen and had a visit 09/20 just prior to the fall. - he is planning treatment and wkup. Bilateral thumb pain 06/21/2017 Anemia Overview (01/05/2020): followed by Dr. Hernandez Scanlon. Normal folate, B12, iron studies, ferritin, GFR 12/30/19 Osteoporosis Overview (05/19/2021): Last DXA 11/05/20 at [facility] Assessment & Plan (02/28/2024 12:43 PM EDT): The patient is not consistent with calcium intake. She does take vitamin D regularly. She stopped taking alendronate only took it for 6 months but is willing to restart. Unfortunately 24-hour urine calcium output is low meaning that she is not getting adequate calcium intake and I told her that if she does not get adequate calcium intake the alendronate will not work. So she must start taking these medications especially since her bone mineral density has decreased significantly in the hip by 18%. She did have some improvement in the spine. I will renew her alendronate and have her return for follow-up in 11 months. I will request another DXA scan because it is due on 11/16/2024. Assessment & Plan (05/05/2022 9:04 AM EST): The patient has multiple risk factors for osteoporosis. She is getting adequate vitamin D supplements but not enough calcium intake and she really either needs to increase her dietary calcium intake by 450 mg or take calcium supplement 500 mg once a day with food. She should take the calcium tablet with her lowest dietary calcium meal. The reason for this is because we cannot absorb more than 800 mg of calcium per sitting. She has agreed to try Fosamax again but she would like to use Prolia. She informs me if she could use Fosamax until September 2022 and then she would like to try Prolia. This is fine but we will have to obtain prior authorization for Prolia when she is ready to switch. I asked the patient to call this office when she is ready to do the switch. We will do prior authorization and then. At this point I will give her a follow-up appointment in 1 years time. I reminded her that she needs to do the lab work fasting that was ordered on 09/20/2021. I also requested lab work to be done prior to the follow-up visit in 1 year. I requested DXA scan for 11/06/2022 that has to be done at [facility]. Assessment & Plan (09/20/2021 9:46 AM EDT): This is a patient who was diagnosed with osteopenia in 2014 and progressed to osteoporosis. She has multiple risk factors for osteoporosis including age, premature ovarian failure, family history, remote tobacco use and past history of heavy alcohol use. Also intra-articular corticosteroid deficiency history of vitamin D deficiency in the past presently decrease calcium intake and tamoxifen therapy. She has not had any decrease in height but she has had multiple fractures even at an early age. She has had radiation therapy for breast cancer. So she at present cannot use anabolic hormones such as Forteo and Tymlos. She has used Fosamax maybe for period of 2 to 4 years is unclear. If she is getting the proper amount of vitamin D supplements most recent vitamin D was slightly elevated. She is not getting enough calcium intake in her diet approximately 778 mg of she needs to take calcium supplement may be 500 mg a day with food. Her DXA scan have thankfully been stable despite not being on antiresorptive medications and having decreased calcium intake. I discussed treatment with the patient. She does not really want to take any medications but I did discuss the use of bisphosphonates and Prolia which is a rank ligand antagonist. [id number] studies have shown the Prolia works better than bisphosphonates. I gave her a handout on this medication to read. She can think about it. In the meantime I am going to request an studies for evaluation of other secondary causes of osteoporosis. Resolved Problems Problem Noted Date Diagnosed Date Resolved Date Exposure to COVID-19 virus 09/22/2021 0 09/24/2021 Immunizations Immunization Administration Dates Next Due COVID-19 (Pre-03/12) Moderna Vaccine, mRNA, PF 09/09/2021,08/09/2020,07/12/2020 INFLUENZA, SPLIT VIRUS, TRIV ALENT W/ PRESERVATIVE IM 02/05/2010 Influenza High-Dose Quadriva lent Preservative Free IM 02/19/2020 Influenza Quadrivalent Adjuv anted Preservative Free IM 02/25/2021 Influenza Quadrivalent MDCK Preservative Free IM 01/10/2017 Influenza Quadrivalent Preservative Free IM 08/2017 Influenza Quadrivalent w/ Preservative IM 2018 Pneumococcal conjugate PCV13 02/19/2020 Pneumococcal polysaccharide PPSV23 06/27/2018 Tdap 12/04/2012 Zoster live 05/17/2016 Family History Medical History Relation Comments Alcohol abuse Father Hypertension Father Stroke Father of at 71 Alcohol abuse Maternal Aunt Alcohol abuse Maternal Grandfather Diabetes type II Maternal Grandmother Alcohol abuse Maternal Uncle Depression Mother Lupus Mother Osteoporosis Mother Pulmonary embolism Mother of at 78 Pulmonary fibrosis Mother Hypertension Sister Hyperthyroidism Sister Twin sister Renal artery stenosis Sister Breast cancer Neg Hx Colon cancer Neg Hx Ovarian cancer Neg Hx Panic disorder Neg Hx Relation Status Comments Father (Age 71) Maternal Aunt Maternal Grandfather Maternal Grandmother Maternal Uncle Mother (Age 78) Sister Social History Tobacco Use Types Packs/Day Years Used Date Smoking Tobacco: Former Cigarettes 0.1 23 1 2 - 1994 Smokeless Tobacco: Never Alcohol Use Standard Drinks/Week Comments No 0 (1 standard drink = 0.6 oz pur e alcohol) sober since 04/05/95 Child or Family Care Answer Date Record ed Do you have problems with on e of the following making it difficult for you to work, study, or receive health care? No 01/14/2020 Education Answer Date Recorded Are you interested in more education? Not on francisco e 09/15/2022 Are you concerned about learning? Not on file 09/15/2022 No 09/15/2022 No 09/15/2022 Food Answer Date Recorded Within the past 6 months we worried whether our food would run out before we got money to buy more. Never True 01/14/2020 Within the past 6 months the food we bought just didn't last and we didn't have enough money to get more. Never True 0 Paying for Meds Answer Date Recorded Do you have trouble paying for medicines? No 01/14/2020 Paying Utility Bills Answer Date Record ed Do you have trouble paying your heating or elect ricity bill? No 01/14/2020 Transportation Answer Date Recorded Has the lack of transportati on kept you from medical appointments or from getting medications? No 01/14/2020 Digital Access Answer Date Recorded No 10/16/2022 No 10/16/2022 Reliable internet access at home? Not on file 10/16/2022 Device with a working camera? Not on file Comments No Sex and Gender Information Value Date Recorded Sex Assigned at Female 07/15/2019 3:17 PM EST Legal Sex Female 9:56 PM EDT Gender Identity Female 07/15/2019 3:17 PM EST Sexual Orientation Straight 09/20/2021 6: 46 PM EDT Last Filed Vital Signs Vital Sign Reading Time Taken Comments Blood Pressure 122/62 02/28/2024 12:16 PM EDT Pulse 54 02/28/2024 12:16 PM EDT Temperature 36.6 C (97.8 F) 11/15/2021 12:13 PM EDT Respiratory Rate 16 10/26/2021 1:29 PM EDT Oxygen Saturation 99% 02/28/2024 12:16 PM EDT Inhaled Oxygen Concentration - - Weight 66.2 kg (146 lb) 02/28/2024 12:16 PM EDT Height 167.6 cm (5' 6 ) 02/28/2024 12:16 PM EDT Body Mass Index 23.57 02/28/2024 12:16 PM EDT Plan of Treatment Upcoming Encounters Date Type Department Care Team (Late st Contact Info) Description 01/28/2025 8:50 AM EDT Office Visit [facility] [address] [place] [address] [place] [address] Jose Yuen DO [address] [place] [id number] Health Maintenance Due Date Last Done Comments COLOGUARD 1999 FIT TEST 1999 FOBT 1999 SIGMOIDOSCOPY 1999 VIRTUAL COLONOSCOPY 1999 ZOSTER VACCINES (1 of 2) 07/12/2016 05/17/2016 DEPRESSION SCREENING 05/12/2022 05/12/2021 MAMMOGRAM 05/25/2022 05/25/2020, 05/22, 06/04/2018 TSH LEVEL 09/12/2022 09/12/2021, 04/21, 01/19/2020, Additional history exists INFLUENZA VACCINE (#1) 2024 , 02/20/2022, 02/25/2021, Additional history exists COVID-19 VACCINE ( season) 2025 12/14/2023, 02/23/2023, 03/11/2022, Additional history exists LIPID PANEL 05/12/2026 05/12/2021, 12/21, 04/26/2018 Adult Td,Tdap Booster 11/02/2032 11/02/2022, 013 COLONOSCOPY 09/23/2033 09/24/2023, 11/01/2004 COLORECTAL CANCER SCREENING 09/23/2033 HEPATITIS C SCREENING Completed 01/19/2020 PNEUMOCOCCAL VACCINES (50+ years) Completed 07/01/2022, 02/19/2020, 06/27/2018 RSV VACCINE Completed 03/15/2023 SMOKING STATUS SCREENING (Once After 26 Yrs) Completed 02/28/2024 OSTEOPOROSIS SCREENING INITIAL (ONE-TIME) Completed 11/18/2024, 05/05/2022, 11/05/2020, Additional history exists HEPATITIS A VACCINES Aged Out No long er eligible based on patient's age to complete this topic HIB VACCINES Aged Out No longer eligi ble based on patient's age to complete this topic MENINGOCOCCAL VACCINES (ACWY) Aged Out No longer eligible based on patient's age to complete this topic MENINGOCOCCAL VACCINES (B) Aged Out N o longer eligible based on patient's age to complete this topic Medical Devices Implanted Type Area Finance Controller Device Identifier Shelf Expiration Date Model / Serial / Lot Quik-Use Femoral Bone Cement Prep Kid With Thomas Medullary Cement Plugs Implanted:Qty: 1 on 09/21/2021 by Bull Velázquez MD at [facility] Left: Hip OPAL 02/25/2026 [id number] / / [id number] Description:quik-use femoral bone cement prep kit with thomas medullary cement plugs: (1) Cement plug implanted Cement Bone 1x40 Standard - [id number] Implanted:Qty: 2 on 09/21/2021 by Bull Velázquez MD at [facility] Left: Hip OPAL / DIV OF BRISTOL SQUIBB 01/19/2024 [id number] / / [id number] Versys Hip System Distal Hip Centralizer Implanted:Qty: 1 on 09/21/2021 by Bull Velázquez MD at [facility] Left: Hip OPAL 09/06/2030 [id number] / / [id number] Hip Stem 11mm Femoral Echo Fx Lorton Chromium - [id number] Implanted:Qty: 1 on 09/21/2021 by Bull Velázquez MD at [facility] Left: Hip [employer] 07/01/2031 [id number] / / [id number] Acetabular Shell 45mm Endo Ii Titanium Alloy Unipolar - [id number] Implanted:Qty: 1 on 09/21/2021 by Bull Velázquez MD at [facility] Left: Hip [employer] 12/10/2030 [id number] / / [id number] Hip Insert 6mm Femoral Bio Wilkerson Ii Endo Titanium Alloy Taper Minus - [id number] Implanted:Qty: 1 on 09/21/2021 by Bull Velázquez MD at [facility] Left: Hip [employer] 12/14/2030 [id number] / / [id number] Procedures Procedure Name Priority Date/Time Associated Diagnosis Comments BD DXA MONITORING Routine 11/18/2024 12: 22 PM EDT Other osteoporosis without current pathological fracture HM COLONOSCOPY FOR RESULT ENTRY ONLY Routine 09/24/2023 12:24 PM EDT TSH Routine 09/12/2021 3:10 PM EDT Blanquita's thyroiditis LIPID PANEL Routine 05/12/2021 3:07 PM EST Dyslipidemia HM MAMMOGRAPHY Routine 05/25/2020 HEPATITIS C ANTIBODY, QUALITATIVE Routine 01/19/2020 8:04 AM EDT Routine general medical examination at a health care facility from Last 3 Months or Most Recently Relevant to Health Maintenance Results * DXA Monitoring (11/18/2024 12:22 PM EDT) Anatomical Region Laterality Modality Bone Density Bone Density Jose Vidalesasio DO IMG BD BONE DENSITY DEXA Final R esult * HM COLONOSCOPY FOR RESULT ENTRY ONLY (09/24/2023 12:24 PM EDT) Historical Provider HEALTH MAINTENANCE Final Result * TSH (09/12/2021 3:10 PM EDT) TSH 3.60 0.27 - 4.20 uIU/mL [facility] Blood 09/12/2021 3:10 PM EDT 09/12/2021 3:17 PM EDT Bull Fajardo MD LAB BLOOD ORDERABLES Final Result [address] [address] * (ABNORMAL) Lipid panel (05/12/2021 3:07 PM EST) HDL 96 mg/dL [facility] Comment: Interpretation <40 mg/dL: Low HDL cholesterol (major risk factor for CHD) Greater than or equal to 60 mg/dL: High HDL cholesterol ( negative risk factor for CHD) HDL - cholesterol is affected by a number of factors, e.g. smoking, excerise, hormones, sex and age. CHOLESTEROL 286(H) 0 - 240 mg/dL [facility] TRIGLYCERIDES 129 30 - 160 mg/dL [facility] LDL 164(H) 50 - 129 mg/dL [facility] Comment: LDL levels in terms of risk for coronary heart disease: <100 mg/dL: Optimal 100-129 mg/dL: Near or above optimal 130-159 mg/dL: Borderline high 160-189 mg/dL: High >190 mg/dL: Very High CARDIAC RISK RATIO 3.0(L) 3.3 - 4.4 C [facility] Blood 05/12/2021 3:07 PM EST 05/12/2021 3:10 PM EST Bull Fajardo MD LAB BLOOD ORDERABLES Final Result Performing Organization Address City/[facility]/ZIP Co de Phone Number [address] [address] * MAMMOGRAPHY FOR RESULT ENTRY ONLY (05/25/2020) Historical Provider HEALTH MAINTENANCE Edited Result - Final * Hepatitis C antibody, qualitative (01/19/2020 8:04 AM EDT) HCV NON-REACTIV E NON-REACTI VE [facility] Blood 01/19/2020 8:04 AM EDT 01/19/2020 8:27 AM EDT Bull Fajardo MD LAB BLOOD ORDERABLES Final Result Performing Organization Address [facility] [place]/[facility] Co de Phone Number [address] [address] from Last 3 Months or Most Recently Relevant to Health Maintenance Insurance [place] [id number] [place] MEDICARE PART A & [place] BL[place] MEDICARE PART A & B MEDICARE PART A & B MEDICARE PART A & B MEDICARE PPO BLUE REPLACEMENT MEDICARE PART A & B MEDICARE PART A & B MEDICARE PPO BLUE REPLACEMENT MEDICARE PART A & B MEDICARE PPO BLUE REPLACEMENT MEDICARE PART A & B Member Subscriber Plan / Payer (Ef fective 2019-Present) Name:Lilian Tamayo Member ID:[id number] Relation to Subscriber:Self Name:Lilian Tamayo Subscriber ID:[id number] Payer ID:[id number] Group ID:Not on file Type:Medicare Address: [employer] 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 It is not the complete legal health record.[facility]
--- OUTSIDE RECORDS SUMMARY | 2025-01-20 14:38 | XMS_ITS | Encounter Summary ---
Author Organization [facility] Address [address] [place] [address] Phone Care Team Providers Care Health Education Teacher Name Role Phone Bull Fjaardo MD Primary Care Provider [phone] Radha Zurita MD Primary Care Provid er Michelle Fitzgerald MD Primary Care Provider + [phone] Reason for Referral * - Closed Specialty Diagnoses / Procedures Referred By Contac t Referred To Contact Procedures NM Other Outside (No Interpretation) System, Provider Not In, PhD [employer] [address] [address] Referral ID Status Reason Start Date Expiration Date Visits Re quested Visits Authorized [id number] Closed 06/28/2018 06/28/2019 1 1 Encounter Details Date Type Department Care Team (Late st Contact Info) Description 06/28/2018 Ancillary Orders [facility],Outside Imaging [address] [place] [address] System, Provider Not In, PhD [employer] [address] [place] [address] Social History Tobacco Use Types Packs/Day Years [...] 8:50 AM EDT Office Visit [facility] [address] [place] [address] Jose Yuen DO [address] [place] [address] [email or web address] documented as of this encounter Results * NM Other Outside (No Interpretation) (06/18/2018 12:15 AM EST) Narrative SYSTEMGENERATED, DOCUMENTATION - 06/28/2018 1:22 PM EST This study is for PACS [...] documented as of this encounter Care Teams Health Education Teacher Relationship Specialty Start Date End Date Bull Fajardo MD [address] [place] [address] [address] [place] [address] [email or web address] PCP - General 05/24/1711/30 Radha Zurita MD [address] [place] [address] [address] [place] [address] [email or web address] PCP - General Family Medicine 12/01/21 1 07/18/21 Michelle Fitzgerald MD [address] [place] [address] [email or web address] PCP - General Family Medicine 05/18/22 documented as of this encounter Additional Source Comments The information contained in this document represents components of the legal health record. It is not the complete legal health record.[facility]
--- OUTSIDE RECORDS SUMMARY | 2025-01-20 14:38 | XMS_ITS | Encounter Summary ---
Author Organization [facility] Address [address] [place] [address] Phone Care Team Providers Care Breaker Off Name Role Phone Bull Fajardo MD Primary Care Provider +- [phone] Radha Zurita MD Primary Care Provid er Michelle Fitzgerald MD Primary Care Provider [phone] Encounter Details Date Type Department Care Team (Late Contact Info) Description 06/28/2018 Ancillary Orders [facility],Outside Imaging [address] [place], [place] [phone] System, Provider Not In, [place] [address] Social History Tobacco Use Types Packs/Day Years [...] 8:50 AM EDT Office Visit [facility] [address] [place] [address] Jose Yuen DO [address] [place] [address] documented as of this encounter Results * US Breast Outside (No Interpretation) (06/18/2018 12:00 AM EST) Narrative SYSTEMGENERATED, DOCUMENTATION - 06/28/2018 1:21 PM EST This study is for PACS [...] documented as of this encounter Care Teams Breaker Off Relationship Specialty Start Date End Date Bull Fajardo MD [address] [place] [phone] [email or web address] PCP - General 05/24/1711/30 Radha Zurita MD [address] [place] [address] [email or web address] PCP - General Family Medicine 12/01/21 1 07/18/21 Michelle Fitzgerald MD [address] [place] [address] [email or web address] PCP - General Family Medicine 05/18/22 documented as of this encounter Additional Source Comments The information contained in this document represents components of the legal health record. It is not the complete legal health record.[facility]
--- OUTSIDE RECORDS SUMMARY | 2025-01-20 14:38 | XMS_ITS | Encounter Summary ---
Author Organization [facility] Address [address] [place] [address] Phone Care Team Providers Care Baseball Inspector And Repairer Name Role Phone Bull Fajardo MD Primary Care Provider +- [phone] Radha Zurita MD Primary Care Provid er Michelle Fitzgerald MD Primary Care Provider [phone] Encounter Details Date Type Department Care Team (Late Contact Info) Description 06/28/2018 Ancillary Orders [facility],Outside Imaging [address] [place], [place] [phone] System, Provider Not In, [place] [address] Social History Tobacco Use Types Packs/Day Years [...] 8:50 AM EDT Office Visit [facility] [address] [place] [address] Jose Yuen DO [address] [place] [address] documented as of this encounter Results * [...] documented as of this encounter Care Teams Baseball Inspector And Repairer Relationship Specialty Start Date End Date Bull Faajrdo MD [address] [place] [address] [email or web address] PCP - General 05/24/1711/30 Radha Zurita MD [address] [place] [address] [email or web address] PCP - General Family Medicine 12/01/21 1 07/18/21 Michelle Fitzgerald MD [address] [place] [address] [email or web address] PCP - General Family Medicine 05/18/22 documented as of this encounter Additional Source Comments The information contained in this document represents components of the legal health record. It is not the complete legal health record.[facility]
--- OUTSIDE RECORDS SUMMARY | 2025-01-20 14:38 | XMS_ITS | Encounter Summary ---
Author Organization [facility] Address [address] [place] [address] [place] [address] Phone Care Team Providers Care Mash Filter Press Operator Name Role Phone Bull Fajardo MD Primary Care Provider [phone] Radha Zurita MD Primary Care Provid er Michelle Fitzgerald MD Primary Care Provider + [phone] Encounter Details Date Type Department Care Team (Late st Contact Info) Description 09/21/2021 Procedure Pass OR Admitting Dept - Virtual Department [address] [place], [place] [id number] Social History Tobacco Use Types Packs/Day Years Used Date Smoking Tobacco: Former Cigarettes 0.1 23 1 972 - 1994 Smokeless Tobacco: Never Alcohol Use [...] Answer Date Recorded Are you interested in help w ith more adult education (for example, completing high school, GED, job training, learning the Finnish language, technical skills, or developing parenting skills)? No 01/14/2020 Food Answer Date Recorded Within the past [...] appointments or from getting medications? No 01/14/2020 Comments No Sex and Gender Information Value [...] 8:50 AM EDT Office Visit [facility] [address] [place] [address] Jose Yuen DO [address] [place] [address] [email or web address] documented as of this encounter Visit Diagnoses Not on filedocumented [...] Noted Time PHQ-2 Depression Total Score: 0 05/12/20 21 1:46 PM EST documented as of this encounter Care Teams Mash Filter Press Operator Relationship Specialty Start Date End Date Bull Fajardo MD [address] [place] [address] [address] [place] [address] [email or web address] PCP - General 05/24/1711/30 Radha Zurita MD 22 [facility] [address] [place] [address] [email or web address] PCP - General Family Medicine 12/01/21 1 07/18/21 Michelle Fitzgerald MD [address] [place] [address] [email or web address] PCP - General Family Medicine 05/18/22 documented as of this encounter Additional Source Comments The information contained in this document represents components of the legal health record. It is not the complete legal health record.[facility]
== END 2025-01-20 13:47 | disposition home or self-care (01) ==
LOC: HO.HGS 13:23
PROVIDERS: PCP Family Medicine; Visit Provider Surgery
DX: C50.412 Malignant neoplasm of upper-outer quadrant of left female breast (principal); Z17.0 Estrogen receptor positive status [ER+]; R92.8 Other abnormal and inconclusive findings on diagnostic imaging of breast
CPT/HCPCS: 99213; G2211

== ENCOUNTER → 2025-01-20 13:22 | Outpatient (BNVA) | payer MEDICARE, SELFPAY | PROVIDERS: PCP Family Medicine; Visit Provider Surgery | DX: Z71.2 Person consulting for explanation of examination or test findings (principal); C50.412 Malignant neoplasm of upper-outer quadrant of left female breast; R92.8 Other abnormal and inconclusive findings on diagnostic imaging of breast; Z17.0 Estrogen receptor positive status [ER+] | CPT/HCPCS: 99212 ==

== ENCOUNTER 2025-01-29 07:53 | Outpatient (REF) | payer MEDICARE, SELFPAY ==
--- OUTSIDE RECORDS SUMMARY | 2023-09-24 03:30 | XMS_ITS ---
Author Organization [facility] Address [address] [place] [address] Care Team Providers Care Frame Sample And Pattern Supervisor Name Role Phone ANNEL SIMS M.D. Primary Care Provider Elen vailable Troy Martinez Unavailable [phone] REASON FOR VISIT colon screening Problems Problem Type SNOMED Code ICD Code Onset Dates Problem Status W/U Status Risk Notes Problem Diverticular disease of colon (175481055) Diverticulosis large intestine w/o perforation or abscess w/o bleeding (K57.30) Active confirmed Encounters Encounter Location Date Provider Diagnosis [facility] [place] [address] [place] [phone] 09/24/2023 Troy Martinez Encounter for scre ening [...] Progress Notes * JELANISOMDOB:[birth year] (69 yo F)Acc No.[id number]:09/24/2023 COLON WITH MAC Patient: SOM SANCHEZ Provider: Shakira Martinez MD :1955 A ge:68 Y S ex:Female Date:09/24/2023 Address:[address] [place], [place] [phone] Pcp:ANNEL SIMS M.D. Subjective: * Chief Complaints: [...] 0 09/24/2023 Generated for Leelee costello/Christine/Richasmitting on: 0 01/29/2025 07:56 AM EDT
--- OUTSIDE RECORDS SUMMARY | 2025-01-28 08:50 | XMS_ITS | Encounter Summary ---
Author Organization [facility] Address [address] [place] [address] [place] [address] Phone Care Team Providers Care Food And Beverage Service Manager Name Role Phone Michelle Fitzgerald MD Primary Care Provider + [phone] Encounter Details Date Type Department Care Team (Late st Contact Info) Description 01/28/2025 8:50 AM EDT Office Visit [facility] [address] [place] [address] Jose Yuen, DO [address] [place] [address] [email or web address] Other osteoporosis without current pathological fracture (Primary Dx) Social History Tobacco Use Types Packs/Day Years [...] PM EDT documented as of this encounter Last Filed Vital Signs Vital Sign Reading Time Taken Comments Blood Pressure 118/68 01/28/2025 8:59 AM EDT Pulse 69 01/28/2025 8:59 AM EDT Temperature - - Respiratory Rate - - Oxygen Saturation 99% 01/28/2025 8:59 AM EDT Inhaled Oxygen Concentration - - Weight - - Height 167.6 cm (5' 6 ) 01/28/2025 8:59 AM EDT Body Mass Index - - documented in this encounter Patient Instructions * Patient Instructions* Jose Yuen DO - 01/28/2025 8:50 AM EDT Please try to do your lab work fasting at a [facility]. I am going to request lab work for next year as well. Continue alendronate 70 mg weekly. I asked the front staff to give you a copy of the DEXA scan just in case [facility] does not receive it. You will be due on November 18, 2024. Again they may give you a hard time about repeating it but it should be covered. The lab work that I requested for next year should be done fasting in the morning without exercise and you should try to doit 2 weeks prior to the visit because that is sent out and not done in-house. documented in this encounter Progress Notes * Jose Yuen DO - 01/28/2025 8:50 AM EDT Presenting Complaint: 1. Other osteoporosis without current pathological fracture History of Present Illness: 69-year-old woman with multiple medical problems including breast carcinoma status postlumpectomy, radiation therapy and tamoxifen, vitamin D deficiency, hypothyroidism and osteoporosis who was last seen on 02/28/2024 now presents for follow-up of osteoporosis. This is a patient who was diagnosed with osteopenia in 2014 and progressed to osteoporosis. She hasmultiple risk factors for osteoporosis including age, premature ovarian failure, family history, remote tobacco use, past history of heavy alcohol use, intra-articular corticosteroid administration, history of vitamin D deficiency, presently decrease calcium intake and tamoxifen therapy. She has not had any decrease in height but she has had multiple fractures even at an early age. She has had radiation therapy for breast cancer. So she at present cannot use anabolic hormones such as Forteo andTymlos. She has used Fosamax maybe for period of 2 to 4 years is unclear. She is getting the proper amount of vitamin D supplements most recent vitamin D was slightly elevated. She is not getting enough calcium intake in her diet approximately 778 mg of she needs to take calcium supplement may be 500 mg a day with food. She is taking vitamin D 2000 units. She did not repeat the vitamin D level so I do not have results. She is not taking calcium tablets does not know if it is calcium citrate or carbonate. That 300 mg and she takes 2 in the morning. She is monitoring her calcium intake during the day and if she findsthat she is low and not making the 1200 mg minimum per day she may take another calcium tablet in the evening. DXA scan dated 11/05/2020 done at [facility] shows lumbar spine T score of -2.5 which increased 2.1% from the previous study in 2019 but decreased by 4% from baseline in 2013. Anything less than 5% is not considered significant. Right femoral neck T score is -2.2 right total hip T score -2.2 and increase by 1.5% from previous study but decreased by 2.3% from baseline. DXA scan on 11/16/2022 at [facility] shows lumbar spine T-score is - 1.6 it increased by 4.3% since 2020 the right total hip T-score was -3.3 but unfortunately it decreased by 18.2%. Right femoral neck T-score is -3.1. Repeat DXA scan at [facility] on 11/18/2024 shows lumbar spine T-score of -2.4 which has decreased by 3.2% since her last visit. Right total hip T- score is -2.0 which has increased by 26.3%and right femoral neck T-score is -1.6 which has increased by 33.2. So she had a great improvement in the hip in terms of bone mineral density. But is a mixed picture because she had decrease in bone mineral density of the spine. FRAX score was calculated and major osteoporotic fracture was 12% andhip fracture was 0.8%. On the last visit I did prescribe Fosamax 70 mg she tried it. She stopped it after 6 months use. On02/28/2024 she resumed the medication so would appear that she has not been taking the medication for a year and 5 months. I did request lab work on the last visit this included CTX comprehensive and vitamin D. This needs to be done fasting and I will recommend that she get it done eventually. Medication: Pre-Procedure Instructions: Medication Instructions alendronate (FOSAMAX) 70 MG tablet aspirin 81 MG EC tablet ibuprofen (ADVIL,MOTRIN) 100 mg/5 mL suspension levothyroxine (SYNTHROID, LEVOTHROID) 88 MCG tablet sertraline (ZOLOFT) 100 MG tablet tamoxifen (NOLVADEX) 10 MG tablet No current facility-administered medications for this visit. Lab Data: No visits with results within 2 Month(s) from this visit. Latest known visit with results is: Hospital Outpatient Visit on 05/08/2022 Component Date Value Ref Range Status PROCOLL I INTACT N 05/08/2022 25 mcg/L Final Comment: (NOTE) REFERENCE VALUE Premenopausal: 19-83 Postmenopausal: 16-96 TOTAL PROTEIN 05/08/2022 7.6 6.3 - 7.9 g/dL Final Albumin 05/08/2022 3.4 3.4 - 4.7 g/dL Final Alpha-1 Globulin 05/08/2022 0.3 0.1 - 0.3 g/dL Final Alpha-2 Globulin 05/08/2022 1.1 (H) 0.6 - 1.0 g/dL Final Beta-Globulin 05/08/2022 1.0 0.7 - 1.2 g/dL Final Gamma-Globulin 05/08/2022 1.8 (H) 0.6 - 1.6 g/dL Final A/G Ratio 05/08/2022 0.80 Final M spike 05/08/2022 Test component not applicable or not reported. g/dL Final M spike 05/08/2022 Test component not applicable or not reported. 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 Gen. Exam: Impression: 1. Other osteoporosis without current pathological fracture (Primary) Assessment & Plan: She is taking calcium now regularly she is also taking vitamin D supplements she is not doing any weightbearing exercises. She continues on alendronate. She has significant bone mineral density in the hip. But the spine decreased significantly as well which does not make much sense. Her FRAX score is not elevated. Will continue alendronate 70 mg weekly. My understanding is that she can get yearlyDXA scan if she is on therapy so I will request another DXA scan for the follow-up visit in a year. Orders: - DXA Monitoring - alendronate (FOSAMAX) 70 MG tablet Dispense: 12 tablet; Refill: 4 - Collagen type 1b-telopeptide, blood - P1NP (Procollagen I NT Polypeptide) - Renal panel Return in about 1 year (around 01/28/2026) for Osteoporosis. I have maintained a longitudinal relationship with the patient, overseeing the care of of their osteoporosis. This has significantly influence my decision- making and treatment plans during today's encounter. Jose Yuen DO documented in this encounter Miscellaneous Notes * Assessment & Plan Note - Jose Yuen DO - 01/28/2025 9:27 AM EDTAssociated Problem(s): Osteoporosis She is taking calcium now regularly she is also taking vitamin D supplements she is not doing any weightbearing exercises. She continues on alendronate. She has significant bone mineral density in the hip. But the spine decreased significantly as well which does not make much sense. Her FRAX score is not elevated. Will continue alendronate 70 mg weekly. My understanding is that she can get yearlyDXA scan if she is on therapy so I will request another DXA scan for the follow-up visit in a year. documented in this encounter Plan of Treatment Upcoming Encounters Date Type Department Care Team (Late st Contact Info) Description 01/28/2026 8:50 AM EDT Office Visit [facility] [address] [place] [address] Jose Yuen DO [address] [place] [address] [email or web address] Scheduled Orders Name Type Priority Associated Diagnoses Orde r Schedule Collagen type 1b-telopeptide, blood Lab Routine Other osteoporosis without current pathological fracture Expected: 01/28/2026, Expires: 07/28/2026 P1NP (Procollagen I NT Polypeptide) Lab Routine Other osteoporosis without current pathological fracture Expected: 01/28/2026, Expires: 07/28/2026 Renal panel Lab Routine Other osteoporosis without current pathological fracture Expected: 01/28/2026, Expires: 07/28/2026 documented as of this encounter Procedures Procedure Name Priority Date/Time Associated Diagnosis Comments BD DXA MONITORING Routine 01/28/2025 9:28 AM EDT Other osteoporosis without current pathological fracture documented in this encounter Visit Diagnoses Diagnosis Other osteoporosis without current pathological fracture- Primary documented in this encounter Additional Health Concerns Assessment Noted Time PHQ-2 Depression Total Score: 0 05/12/20 21 1:46 PM EST documented as of this encounter Care Teams Food And Beverage Service Manager Relationship Specialty Start Date End Date Depiero, Michelle, MD [email or web address] PCP - General Family Medicine 05/18/22 documented as of this encounter Additional Source Comments The information contained in this document represents components of the legal health record. It is not the complete legal health record.[facility]
--- NOTE | ~2025-01-29 | MM_ITS ---
EXAMINATION: STEREOTACTICALLY-GUIDED LEFT BREAST BIOPSY CLINICAL INFORMATION: History of left breast cancer 22 status post lumpectomy. Here for stereotactic core needle biopsy of asymmetry in the lateral left breast posterior depth on CC view. COMPARISON: Priors on PACS. INFORMED CONSENT: After the details of the procedure, as well as the risks (including, but not limited to, bleeding, hematoma formation, and infection), benefits and alternatives (including doing nothing, short-interval follow up, and surgery) to the procedure were explained to the patient in detail and all of her questions were answered, informed written consent was obtained. TECHNIQUE/FINDINGS: A timeout was performed. The lesion intended for biopsy was identified stereotactically and targeted. The skin of the left breast was then cleansed with sterile solution. Using stereotactic guidance, aseptic technique, and 1% lidocaine with and without epinephrine for local anesthesia, a total of 12 cores were obtained through the targeted area with a 9-gauge vacuum-assisted Eviva core biopsy device from a superior approach. No specimen radiograph obtained. At the completion of tissue sampling, a single cork-shaped metallic clip was deposited at the biopsy site. Adequate sampling was achieved. The postprocedure 2-view direct digital mammogram reveals satisfactory positioning of the biopsy clip. The patient tolerated the procedure well and, after assuring adequate hemostasis, was discharged in good condition after reviewing postbiopsy breast care instructions. Final pathology results are pending. MM/MM stereotactic biopsy LT IMPRESSION: 1. Uncomplicated stereotactically-guided core biopsy of the left breast. The 2-view direct digital postprocedure mammogram reveals satisfactory positioning of the biopsy clip. 2. Final pathology results are pending. A separate report with final recommendations will be issued once these results are made available. Electronically signed by: Cierra Hussein DO 01/29/2025 12:34 PM EDT
--- OUTSIDE RECORDS SUMMARY | 2025-01-29 07:56 | XMS_ITS | Clinical Summary ---
Author Organization [facility] Address [address] [place] [address] Phone Care Team Providers Care Undercollar Baster Name Role Phone Michelle Fitzgerald MD Primary Care Provider + [phone] Allergies Active Allergy Reactions Criticality Noted Date [...] home health clinician.] 60 tablet 1 09/25/19 Active Additional Information Patient not taking.Reason: Therapy complete (per PA at follow up appt), Informant: Self, Reported on 10/31/2021 levothyroxine (SYNTHROID, LEVOTHROID) 88 MCG tabletIndications: Acquired hypothyroidism TAKE 1 TABLET BY MOUTH DAILY, & TAKE ADDITIONAL 1/2 ONCE EVERY WEEK DIRECTED 99 tablet 12/21/19 Active Additional Information Patient taking differently: 100 mcg, TAKE 1 TABLET BY MOUTH DAILY, & TAKE ADDITIONAL 1/2 ONCE EVERY WEEK DIRECTED, Reported on 01/28/2025 ibuprofen (ADVIL,MOTRIN) 100 mg/5 mL suspension Take [...] for the next 30 min. 12 tablet 4 01/29/20 25 Active alendronate (FOSAMAX) 70 MG tabletIndications: Other osteoporosis without current pathological fracture Take 1 tablet (70 mg total) by mouth every 7 days. Take in the morning with a full glass of water, on an empty stomach, and do not take anything else by mouth or lie down for the next 30 min. 12 tablet 3 02/28/20 24 025 Discontin ued(Reord er) Active Problems Problem Noted Date Diagnosed Date Polyclonal gammopathy 02/28/2024 Assessment & Plan (02/28/2024 12:46 PM EDT): The patient sees supervisor microwave/oncologist Dr. Scanlon for breast cancer. I asked [...] carcinoma left breast, MSBR grade 1, ER+, ME-, HER2-; lumpectomy + sentinel lymph node biopsy [...] Osteoporosis Overview (05/19/2021): Last DXA 11/05/20 at [facility] Assessment & Plan (01/28/2025 9:27 AM EDT): She is taking calcium now regularly she [...] My understanding is that she can get yearly DXA scan if she is on therapy so I will request another DXA scan for the follow-up visit in a year. Assessment & Plan (02/28/2024 12:43 PM EDT): [...] 11/06/2022 that has to be done at [facility]. Assessment & Plan (09/20/2021 9:46 AM EDT): This is a patient who was diagnosed with osteopenia in 2013 and progressed to osteoporosis. She has multiple [...] Prolia which is a rank ligand antagonist. Iarz-wy-widf studies have shown the Prolia works better than bisphosphonates. I gave her a handout on this medication to read. She can think about it. In the meantime I am going to request an studies for evaluation of other secondary causes of osteoporosis. Resolved Problems Problem Noted Date Diagnosed Date Resolved Date Exposure to COVID-19 virus 09/22/2021 0 09/24/2021 Encounters Date Type Department Care Team Description 01/28/2025 8:50 AM EDT Office Visit [facility] [address] [place] [address] [place] [address] Jose Yuen DO Other osteoporosis without current pathological fracture (Primary Dx) from Last 3 Months Immunizations Immunization Administration Dates Next Due COVID-19 [...] Pulse 69 01/28/2025 8:59 AM EDT Temperature 36.6 C (97.8 F) 11/15/2021 12:13 PM EDT Respiratory Rate 16 10/26/2021 1:29 PM EDT Oxygen Saturation 99% 01/28/2025 8:59 AM EDT Inhaled Oxygen Concentration - - Weight 66.2 kg (146 lb) 02/28/2024 12:16 PM EDT Height 167.6 cm (5' 6 ) 01/28/2025 8:59 AM EDT Body Mass Index 23.57 02/28/2024 12:16 PM EDT Plan of Treatment Upcoming Encounters Date Type Department Care Team (Late st Contact Info) Description 01/28/2026 8:50 AM EDT Office Visit [facility] [address] [place] [address] Jose Yuen DO [address] [place] [address] Health Maintenance Due Date Last Done Comments [...] 07/01/2022, 02/19/2020, 06/27/2018 RSV VACCINE Completed 03/15/2023 OSTEOPOROSIS SCREENING INITIAL (ONE-TIME) Completed 01/28/2025, 11/18/2024, 05/05/2022, Additional history exists SMOKING STATUS SCREENING (Once After 26 Yrs) Completed 01/28/2025 HEPATITIS A VACCINES Aged Out No long [...] this topic Medical Devices Implanted Type Area Yard Motor Operator Device Identifier Shelf Expiration Date Model / Serial / Lot Quik-Use Femoral Bone Cement Prep Kid With Thomas Medullary Cement Plugs Implanted:Qty: 1 on 09/21/2021 by Bull Velázquez MD at [facility] Left: Hip OPAL 02/25/2026 [id number] / / [id number] Description:quik-use femoral bone cement prep kit with thomas medullary cement plugs: (1) Cement plug implanted Cement Bone 1x40 Standard - [id number] Implanted:Qty: 2 on 09/21/2021 by Bull Velázquez MD at [facility] Left: Hip OPAL / DIV OF BRISTOL SQUIBB 01/19/2024 [id number] / / [id number] Versys Hip System Distal Hip Centralizer Implanted:Qty: 1 on 09/21/2021 by uBll Velázquez MD at [facility] Left: Hip OPAL 09/06/2030 [id number] / / [id number] Hip Stem 11mm Femoral Echo Fx [employer] - [id number] Implanted:Qty: 1 on 09/21/2021 by Bull Velázquez MD at [facility] Left: Hip [employer] 07/01/2031 [id number] / / [id number] Acetabular Shell 45mm Endo Ii Titanium Alloy Unipolar - [id number] Implanted:Qty: 1 on 09/21/2021 by Bull Velázquez MD at [facility] Left: Hip [employer] 12/10/2030 [id number] / / [id number] Hip Insert 6mm Femoral Bio Wilkerson Ii Endo Titanium Alloy Taper Minus - [id number] Implanted:Qty: 1 on 09/21/2021 by Bull Velázquez MD at [facility] Left: Hip [employer] 12/14/2030 [id number] / / [id number] Procedures Procedure Name Priority Date/Time Associated Diagnosis Comments BD DXA MONITORING Routine 01/28/2025 9:2 8 AM EDT Other osteoporosis without current pathological fracture BD DXA MONITORING Routine 11/18/2024 12: 22 PM EDT Other osteoporosis without current pathological fracture HM COLONOSCOPY FOR RESULT ENTRY ONLY Routine 09/24/2023 12:24 PM EDT TSH Routine 09/12/2021 3:10 PM EDT Blanquita's thyroiditis LIPID PANEL Routine 05/12/2021 3:07 PM EST Dyslipidemia HM MAMMOGRAPHY Routine 05/25/2020 HEPATITIS C ANTIBODY, QUALITATIVE Routine 01/19/2020 8:04 AM EDT Routine general medical examination at a [facility] care facility from Last 3 Months or Most Recently Relevant to Health Maintenance Results * DXA Monitoring (11/18/2024 12:22 PM EDT) Anatomical Region Laterality Modality Bone Density Bone Density us Jose Yuen DO IMG BD BONE DENSITY DEXA Final R esult * HM COLONOSCOPY FOR RESULT ENTRY ONLY (09/24/2023 12:24 PM EDT) us Historical Provider HEALTH MAINTENANCE Final Result * TSH (09/12/2021 3:10 PM EDT) TSH 3.60 0.27 - 4.20 uIU/mL [facility] Blood 09/12/2021 3:10 PM EDT 09/12/2021 3:17 PM EDT Bull Fajardo MD LAB BLOOD ORDERABLES Final Result Performing Organization Address City/[facility] Co de Phone Number [address] [address] * (ABNORMAL) Lipid panel (05/12/2021 3:07 PM EST) HDL 96 mg/dL [facility] Comment: Interpretation <40 mg/dL: Low HDL cholesterol (major risk factor for CHD) Greater than or equal to 60 mg/dL: High HDL cholesterol ( negative risk factor for CHD) HDL - cholesterol is affected by a number of factors, e.g. smoking, excerise, hormones, sex and age. CHOLESTEROL 286(H) 0 - 240 mg/dL [facility] TRIGLYCERIDES 129 30 - 160 mg/dL [facility] LDL 164(H) 50 - 129 mg/dL [facility] Comment: LDL levels in terms of risk for coronary heart disease: <100 mg/dL: Optimal 100-129 mg/dL: Near or above optimal 130-159 mg/dL: Borderline high 160-189 mg/dL: High >190 mg/dL: Very High CARDIAC RISK RATIO 3.0(L) 3.3 - 4.4 C [facility] Blood 05/12/2021 3:07 PM EST 05/12/2021 3:10 PM EST Bull Fajardo MD LAB BLOOD ORDERABLES Final Result Performing Organization Address City/[facility]/ZIP Co de Phone Number [address] [address] * HM MAMMOGRAPHY FOR RESULT ENTRY ONLY (05/25/2020) Historical Provider HEALTH MAINTENANCE Edited Result - Final * Hepatitis C antibody, qualitative (01/19/2020 8:04 AM EDT) HCV NON-REACTIV E NON-REACTI VE [facility] Blood 01/19/2020 8:04 AM EDT 01/19/2020 8:27 AM EDT Bull Fajardo MD LAB BLOOD ORDERABLES Final Result [facility] [address] [place] [address] from Last 3 Months or Most Recently Relevant to Health Maintenance Insurance MEDICARE PART A & B Member Subscriber Plan / Payer (Ef fective 2019-Present) Name:Belkis, Lilian Member ID:[id number] Relation to Subscriber:Self Name:Lilian Tamayo Subscriber ID:[id number] Payer ID:[id number] Group ID:Not on file Type:Medicare Address: [facility] [employer] [facility] [address] [place] [address] [place] MED[place] P[place] BLUE REPLACEMENT MEDICARE PART A & B Member Subscriber Plan / Payer (Ef fective 2019-Present) Name:Lilian Tamayo Member ID:[id number] Relation to Subscriber:Self Name:Lilian Tamayo Subscriber ID:[id number] Payer ID:[id number] Group ID:Not on file Type:Medicare Address: [employer] [address] MEDICARE PPO BLUE REPLACEMENT MEDICARE PART A & B MEDICARE PART A & B MEDICARE PART A & B [place] BLUE REPLAC[place] MEDICARE PART A & B MEDICARE PART A & B [id number] [place] [address] MEDICARE PPO BLUE REPLACEMENT MEDICARE PART A & B Member Subscriber Plan / Payer (Ef fective 2019-Present) Name:Lilian Tamayo Member ID:[id number] Relation to Subscriber:Self Name:Lilian Tamayo Subscriber ID:[id number] Payer ID:[id number] Group ID:Not on file Type:Medicare Address: [employer] [address] [place] [address] [place] [address] MEDICARE PPO BLUE REPLACEMENT MEDICARE PART A & B [place] BLUE REPLACEMENT Advance Directives For more information, please contact: [phone] (9AM - 5PM [facility], Sunday-Sunday) Documents on File Type Date Recorded Patient Painter Maintenance Expl anation Healthcare Proxy 07/24/2018 * Full Code (Latest Code Status on File) Date Activated Date Inactivated Comments 09/21/2021 4:47 AM Question Answer Comments Code Status Confirmed With: Patient Code Status Communicated To: Inpatient Attending Care Teams Undercollar Baster Relationship Specialty Start Date End Date Michelle Fitzgerald MD PCP - General Family Medicine 05/18/22 Additional Source Comments The information contained in this document represents components of the legal health record. It is not the complete legal health record.[facility]
--- OUTSIDE RECORDS SUMMARY | 2025-01-29 07:56 | XMS_ITS | Encounter Summary ---
Author Organization [facility] Address [address] [place] [address] Phone Care Team Providers Care Manager Park Name Role Phone Bull Fajardo MD Primary Care Provider +- [phone] Radha Zurita MD Primary Care Provid er Michelle Fitzgerald MD Primary Care Provider +1 [phone] Encounter Details Date Type Department Care Team (Late Contact Info) Description 06/28/2018 Ancillary Orders [facility],Outside Imaging [address] [place], [place] [id number] System, Provider [place] In, [place] [address] Social History Tobacco Use Types Packs/Day Years [...] Department Care Team (Late Contact Info) Description 01/28/2026 8:50 AM EDT Office Visit [facility] [address] [place] [address] Jose Yuen DO 22 [place] [address] documented as of this encounter Results * [...] documented as of this encounter Care Teams Manager Park Relationship Specialty Start Date End Date Bull Fajardo MD [address] [place] [address] 31685 [email or web address] PCP - General 05/24/1711/30 Radha Zurita MD [address] [place] [address] [email or web address] PCP - General Family Medicine 12/01/21 1 07/18/21 Michelle Fitzgerald MD [address] [place] [address] [email or web address] PCP - General Family Medicine 05/18/22 documented as of this encounter Additional Source Comments The information contained in this document represents components of the legal health record. It is not the complete legal health record.[facility]
--- OUTSIDE RECORDS SUMMARY | 2025-01-29 07:56 | XMS_ITS | Encounter Summary ---
Author Organization [facility] Address [address] [place] [address] Phone Care Team Providers Care Shop Tech Name Role Phone Bull Fajardo MD Primary Care Provider +- [phone] Radha Zurita MD Primary Care Provid er Michelle Fitzgerald MD Primary Care Provider [phone] Encounter Details Date Type Department Care Team (Late Contact Info) Description 06/28/2018 Ancillary Orders [facility],Outside Imaging 30 [place], [place] [phone] System, Provider [place] In, [place] [address] Social History Tobacco Use Types Packs/Day Years [...] AM EDT Office Visit [facility] [address] [place] [address] Jose Yuen DO 22 [place] [address] [email or web address] documented as of this encounter Results * [...] documented as of this encounter Care Teams Shop Tech Relationship Specialty Start Date End Date Bull Fajardo MD [address] [place] [address] 21681 [email or web address] PCP - General 05/24/1711/30 Radha Zurita MD [address] [place] [address] [email or web address] PCP - General Family Medicine 12/01/21 1 07/18/21 Michelle Fitzgerald MD [address] [place] [address] [email or web address] PCP - General Family Medicine 05/18/22 documented as of this encounter Additional Source Comments The information contained in this document represents components of the legal health record. It is not the complete legal health record.[facility]
--- OUTSIDE RECORDS SUMMARY | 2025-01-29 07:56 | XMS_ITS | Patient Health Record ---
Author Organization [facility] Address [address] [place] [address] Care Team Providers Care Cause Analyst Name Role Phone ANNEL SIMS M.D. Primary Care Provider Elen Troy Lindsay [phone] Allergies Allergen (clinical drug ingredient) Drug/Non Drug Allergy documented on EMR Reaction Allergy Type Onset Date Status Sulfa Unknown Drug Allergy Active Reason For Referral No Information Medications Medication SIG (Take, Route, Frequency, Duration) Notes Start Date End Date Status Levothyroxine Sodium 88 MCG 1 tablet on an empty stomach in the morning Orally as directed Active Vitamin D 1 tablet Orally Once a day Active Tamoxifen Citrate 10 MG 1 tablet Orally Twice a day Active Sertraline HCl 100 MG 1 tablet Orally On ce a day Active Immunizations Vaccine Route Administration Date Status Comme nts Influenza Unknown 12/19/2017 Administered Influenza Unknown 04/11/2022 Administered Social History Tobacco Use: Social History Observation Description Date Details (start date - stop date) Never Smoker NA - NA Tobacco Use/Smoking Question Answer Notes Patient is a nonsmoker Alcohol Screen Question Answer Notes Did you have a drink containing alcohol in the p ast year? No Points 0 Interpretation Negative Section Notes: Nonsmoker; no sig alcohol Nonsmoker; no sig alcohol Problems Problem Type SNOMED Code ICD Code Onset Dates Problem Status W/U Status Risk Notes Problem [id number] Encounter for screening for malignant neoplasm of colon (Z12.11) Active confirmed Problem [id number] Pre-procedural examination (Z01.818) Active confirmed Problem 05179315 Irritable bowel syndrome, unspecified type (K58.9) Active confirmed Problem Diverticular disease of colon (277183601) Diverticulosis large intestine w/o perforation or abscess w/o bleeding (K57.30) Active confirmed Plan Of Treatment Future Test Test Name Order Date COLONOSCOPY 03/19/2018 COLONOSCOPY 01/18/2023 Insurance Providers Payer Name Payer Address Payer Phone Subscriber Number Group Number Insured Name Patient Relationship to Insured Coverage Start Date Coverage End Date [facility] [address] [place], [place] [id number] SOM PALOMARES Self - patient is the insured Medical (General) History Medical History History ICD Code Iron def anemia---10/2004--Ne g EGD with normal duodenal biopsies and Colonoscopy Panic attacks Hypothyroidism PVC'S---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 Fermin Denies [place],DM,CVA,Lung disease,renal dise ase Surgical History Surgery Date(Month/Year) Knee surgery Shoulder surgery--right shoulder replace ment in 2007 Pilonidal cyst Broken femur Rotator cuff Left lumpectomy for breast cancer with X RT 2019 Eye surgery and cataract surgery Broken left hip 09/2021
--- OUTSIDE RECORDS SUMMARY | 2025-01-29 07:56 | XMS_ITS | Encounter Summary ---
Author Organization Located Within [facility] Address [address] [place] [address] Phone Care Team Providers Care Manager Agricultural Name Role Phone Bull Fajardo MD Primary Care Provider +- [phone] Radha Zurita MD Primary Care Provid er Michelle Fitzgerald MD Primary Care Provider [phone] Encounter Details Date Type Department Care Team (Late Contact Info) Description 06/28/2018 Ancillary Orders [facility],Outside Imaging 30 [place], [place] [phone] System, Provider Not In, [place] [address] Social History Tobacco Use Types Packs/Day Years [...] 8:50 AM EDT Office Visit [facility] [address] [place] [address] Jose Yuen DO 22 [place] [address] documented as of this encounter Results * [...] as of this encounter Care Teams Manager Agricultural Relationship Specialty Start Date End Date Bull Fajardo MD [address] [place] [address] [email or web address] PCP - General 05/24/1711/30 Radha Zurita MD [address] [place] [address] [email or web address] PCP - General Family Medicine 12/01/21 1 07/18/21 Michelle Fitzgerald MD [address] [place] [address] [email or web address] PCP - General Family Medicine 05/18/22 documented as of this encounter Additional Source Comments The information contained in this document represents components of the legal health record. It is not the complete legal health record.[facility]
--- OUTSIDE RECORDS SUMMARY | 2025-01-29 07:56 | XMS_ITS | Encounter Summary ---
Author Organization [facility] Address [address] [place] [address] Phone Care Team Providers Care Materials Planning Manager Name Role Phone Bull Fajardo MD Primary Care Provider +- [phone] Radha Zurita MD Primary Care Provid er Michelle Fitzgerald MD Primary Care Provider [phone] [phone] Encounter Details Date Type Department Care Team (Late Contact Info) Description 06/28/2018 Ancillary Orders [facility],Outside Imaging 30 [place], [place] [phone] System, Provider [place] In, [place] [address] Social History Tobacco Use Types Packs/Day Years [...] 8:50 AM EDT Office Visit [facility] [address] [place] [address] Jose Yuen DO 22 [place] [address] [email or web address] documented as of this encounter Results * [...] documented as of this encounter Care Teams Materials Planning Manager Relationship Specialty Start Date End Date Bull Fajardo MD [address] [place] [address] 24[address] [email or web address] PCP - General 05/24/1711/30 Radha Zurita MD [address] [place] [address] [email or web address] PCP - General Family Medicine 12/01/21 1 07/18/21 Michelle Fitzgerald MD [address] [place] [address] [email or web address] PCP - General Family Medicine 05/18/22 documented as of this encounter Additional Source Comments The information contained in this document represents components of the legal health record. It is not the complete legal health record.[facility]
--- OUTSIDE RECORDS SUMMARY | 2025-01-29 07:56 | XMS_ITS | Encounter Summary ---
Author Organization [facility] Address [address] [place] [address] Phone Care Team Providers Care Supervisor Of Guidance And Testing Name Role Phone Bull Fajardo MD Primary Care Provider [phone] Radha Zurita MD Primary Care Provid er Michelle Fitzgerald MD Primary Care Provider + [phone] Reason for Referral * - Closed Specialty Diagnoses / Procedures Referred By Contac t Referred To Contact Procedures NM Other Outside (No Interpretation) System, Provider Not In, PhD [employer] [address] Referral ID Status Reason Start Date Expiration Date Visits Re quested Visits Authorized [id number] Closed 06/28/2018 06/28/2019 1 1 Encounter Details Date Type Department Care Team (Late st Contact Info) Description 06/28/2018 Ancillary Orders [facility],Outside Imaging 30 [place] [address] System, Provider Not In, PhD [facility] [employer] [address] [place] [address] Social History Tobacco Use Types Packs/Day Years [...] 8:50 AM EDT Office Visit [facility] [address] [place] [address] Jose Yuen DO 22 [place] [address] [email or web address] documented as of this encounter Results * [...] documented as of this encounter Care Teams Supervisor Of Guidance And Testing Relationship Specialty Start Date End Date Bull Fajardo MD [address] [place] [address] 101 [place] [address] [email or web address] PCP - General 05/24/1711/30 Radha Zurita MD [address] [place] [address] 201 [place] [address] [email or web address] PCP - General Family Medicine 12/01/21 1 07/18/21 Michelle Fitzgerald MD [address] [place] [address] [email or web address] PCP - General Family Medicine 05/18/22 documented as of this encounter Additional Source Comments The information contained in this document represents components of the legal health record. It is not the complete legal health record.[facility]
--- OUTSIDE RECORDS SUMMARY | 2025-01-29 07:57 | XMS_ITS | Encounter Summary ---
Author Organization [facility] Address [address] [place] [address] [place] [address] Phone Care Team Providers Care Business Applications Developer Name Role Phone Bull Fajardo MD Primary Care Provider [phone] Radha Zurita MD Primary Care Provid er Michelle Fitzgerald MD Primary Care Provider + [phone] Encounter Details Date Type Department Care Team (Late st Contact Info) Description 09/21/2021 Procedure Pass [place] Admitting Dept - Virtual Department 30 [place], [place] [id number] Social History Tobacco Use Types Packs/Day Years [...] high school, GED, job training, learning the Urdu language, technical skills, or developing parenting skills)? [...] 8:50 AM EDT Office Visit [facility] [address] [place] [address] Jose Yuen DO [address] [place] [address] [email or web address] documented as of this encounter Visit Diagnoses [...] documented as of this encounter Care Teams Business Applications Developer Relationship Specialty Start Date End Date Bull Fajardo MD [address] [place] [address] 101 [place] [address] [email or web address] PCP - General 05/24/1711/30 Radha Zurita MD 22 [facility] [address] [place] [address] [email or web address] PCP - General Family Medicine 12/01/21 1 07/18/21 Michelle Fitzgerald MD [address] [place] [address] [email or web address] PCP - General Family Medicine 05/18/22 documented as of this encounter Additional Source Comments The information contained in this document represents components of the legal health record. It is not the complete legal health record.[facility]
--- OUTSIDE RECORDS SUMMARY | 2025-01-29 07:57 | XMS_ITS | Encounter Summary ---
Author Organization [facility] Address [address] [place] [address] Phone Care Team Providers Care Sales And Marketing Specialist Name Role Phone Bull Fajardo MD Primary Care Provider +- [phone] Radha Zurita MD Primary Care Provid er Michelle Fitzgerald MD Primary Care Provider [phone] Encounter Details Date Type Department Care Team (Late st Contact Info) Description 04/26/2018 Ancillary Orders [facility] [address] [place] [address] Bull Fajardo MD [address] [place] [address] [email or web address] Pain in both hands Social History Tobacco [...] AM EDT Office Visit [facility] [address] [place] [address] Jose Yuen, [address] [place] [address] [email or web address] documented as of this encounter Results * [...] documented as of this encounter Care Teams Sales And Marketing Specialist Relationship Specialty Start Date End Date Bull Fajardo MD [address] [place] [address] [email or web address] PCP - General 05/24/1711/30 Radha Zurita MD [address] [place] [address] [email or web address] PCP - General Family Medicine 12/01/21 1 07/18/21 Michelle Fitzgerald MD [address] [place] [address] (work) [email or web address] PCP - General Family Medicine 05/18/22 documented as of this encounter Additional Source Comments The information contained in this document represents components of the legal health record. It is not the complete legal health record.[facility]
[2025-01-29] MEDS: Lidocaine HCl 1 % 20 ML VIAL 5 ML SUBCUT (09:04)
[2025-01-29] MEDS: Lidocaine HCl 1%/Epi 1:100,000 10 ML VIAL 11 ML SUBCUT (09:06)
== END 2025-01-29 07:54 | disposition home or self-care (01) ==
LOC: HO.MAMMO 07:53
PROVIDERS: PCP Family Medicine; Visit Provider Surgery
DX: C50.412 Malignant neoplasm of upper-outer quadrant of left female breast (principal); Z17.0 Estrogen receptor positive status [ER+]; R92.8 Other abnormal and inconclusive findings on diagnostic imaging of breast
CPT/HCPCS: 19081; 88305; 88360; A4648; J2003; J2004

== ENCOUNTER → 2025-01-29 08:00 | Outpatient (BNV) | payer MEDICARE, SELFPAY | PROVIDERS: PCP Family Medicine; Visit Provider Internal Medicine | DX: Z85.3 Personal history of malignant neoplasm of breast (principal) | CPT/HCPCS: 19081; 77065 ==

== ENCOUNTER 2025-02-03 15:40 | Outpatient (AMB) | payer MEDICARE, SELFPAY ==
--- OUTSIDE RECORDS SUMMARY | 2023-09-24 03:30 | XMS_ITS ---
Author Organization [facility] Address [address] [place] [address] Care Team Providers Care Space Technologist Name Role Phone ANNEL SIMS M.D. Primary Care Provider Elen vailable Troy Martinez Unavailable [phone] REASON FOR VISIT colon screening Problems Problem Type SNOMED Code ICD Code Onset Dates Problem Status W/U Status Risk Notes Problem Diverticular disease of colon (014386643) Diverticulosis large intestine w/o perforation or abscess w/o bleeding (K57.30) Active confirmed Encounters Encounter Location Date Provider Diagnosis [facility] [place] [address] [place] [id number] 09/24/2023 Troy Martinez Encounter for scre ening [...] Progress Notes * JELANISOMDOB:[birth year] (69 yo F)Acc No.[id number]:09/24/2023 COLON WITH MAC Patient: SOM SANCHEZ Provider: Shakira Martinez MD :1955 A ge:68 Y S ex:Female Date:09/24/2023 Address:[address] [place], [place] [phone] Pcp:ANNEL SIMS M.D. Subjective: * Chief Complaints: [...] MD Date: 0 09/24/2023 Generated for Leelee costello/Christine/Laiitting on: 0 02/03/2025 06:53 PM EDT
--- NOTE | 2025-02-03 15:41 | MHC.OFFVIS ---
Vital Signs 02/03/25 15:42 Height 5 ft 6 in Weight 145 lb 8.081 oz BMI 23.5 Intake Visit Reasons: follow up LT BR STEREO BX FOR ASYMMETRY Intake Note: Patient is seen in office for biopsy RESULTS left breast. Pt c/o: here to discuss results Vp Of Global Marketing Required: No Accompanied by: Family/Other Allergies adhesive tape (ADHESIVE TAPE) Allergy (Intermediate, Verified 02/03/25 15:41) BLISTERS naproxen (Aleve) Allergy (Intermediate, Verified 02/03/25 15:41) diarrhea Sulfa (Sulfonamide Antibiotics) Allergy (Intermediate, Verified 02/03/25 15:41) RASH Medication List - Last Reconciled 02/06/25 by Jose Mazariegos MD calcium carbonate (Calcium 500) 500 mg PO DAILY cholecalciferol (vitamin D3) 25 mcg PO BID bailzkfnfvnw-egmwcljmwcz-pijtk 1,000-200 mcg 1 tab PO DAILY levothyroxine 88 mcg PO DAILY sertraline 100 mg PO DAILY tamoxifen 10 mg PO BID HPI Comments Details: 69-year-old female patient, former patient of Dr. 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 A screening mammogram performed on 06/13/2024 revealed a left breast asymmetry in the lateral breast posterior depth seen on CC view and confirmed on additional imaging on 06/27/2024. No ultrasound correlate could be identified. This was felt to be low suspicion for malignancy however the patient requested stereotactic biopsy. She returns today to review the results which revealed mucinous carcinoma, grade 2, ER/SC positive, HER2 negative, Ki-67 low. She tolerated the biopsy well and denies any ongoing breast symptoms. She presents today with her sister Kelly to review the results of the biopsy. [facility] Medical History Post-operative nausea and vomiting PVCs (premature ventricular contractions) Hx of skin cancer, basal cell (~10/19/22) Basal cell carcinoma (BCC) in situ of skin (~10/19/22) History of fracture of arm Hx of fracture of femur Osteoporosis Hypothyroidism Breast cancer, left Surgical History H/O colonoscopy History of excision of lesion (10/2022) History of hip replacement History of Mohs surgery for squamous cell carcinoma of skin (03/2021) Hx of rotator cuff surgery History of left knee surgery History of lumpectomy of left breast History of total replacement of right shoulder joint Family History Maternal Grandmother Diabetes Father HTN (hypertension) Stroke Mother Pulmonary fibrosis HTN (hypertension) Sister HTN (hypertension) Family/Other Acute Crohn's disease Paternal Uncle Stomach cancer Social History Household Members: None Housing: Apartment Are you a primary career placement specialist to a significant other at home: No Do you presently have visiting nurse or other home services: No Alcohol intake: former Patient Tobacco Use Status: Never used Tobacco Second Hand Smoke Exposure: No service: No Current occupational status: employed Review of Systems Const All systems reviewed & are unremarkable except as noted in HPI and below Physical Exam Vital Signs: BMI result Body Mass Index 23.5 Const General: no acute distress and well developed Nutritional Appearance: well nourished Orientation/consciousness: patient oriented x3 Limitations: no limitations HEENT Head: Yes normocephalic Ears: hearing grossly normal bilaterally Chest Other: From prior examination: Left breast: No skin change, no nipple retraction, no nipple discharge, no palpable mass, no enlarged lymph nodes. Well-healed incision in the lower outer quadrant left breast with no palpable mass and only minimal residual scar tissue. Right breast: No skin change, no nipple retraction, no nipple discharge, no palpable mass, no enlarged lymph nodes. Resp Effort & Inspection: normal respiratory effort, no audible wheezes and no cough GI Inspection: Yes normal to inspection Palpation (GI): Soft to palpation Auscultation: normal bowel sounds Skin General skin exam: no rashes or lesions noted Neuro Other: Mobility Assessment: 1. 3 meter assessment time (seconds): 5 2. Gait observations: Normal balance and gait General: patient oriented x3 Extrem General: Yes no clubbing, cyanosis or edema Assessment & Plan Assessment & Plan (1) Mucinous carcinoma of left breast: Code(s): C50.912 - Malignant neoplasm of unspecified site of left female breast Category: Medical Plan 69-year-old female patient returning following a recent left breast stereotactic core biopsy which revealed a mucinous carcinoma grade 2, ER/SC positive, HER2 Niko negative, Ki-67 low. Patient previously was treated for a left breast invasive ductal carcinoma treated with lumpectomy and sentinel node biopsy followed by radiation therapy and tamoxifen. Patient understands this she has not a candidate for adjuvant radiation therapy since she previously underwent therapy for her initial breast cancer. We discussed left simple mastectomy and sentinel node biopsy, although now that she is over 69 years old and her new tumor is a mucinous carcinoma, repeat lumpectomy, sentinel node biopsy without adjuvant radiation but with an AI may be suitable therapy. I recommended obtaining Radiation and Medical Oncology evaluations prior to scheduling surgery for a multidisciplinary evaluation of her options. Orders: Referrals Radiation Oncology Referral C50.912 - Malignant neoplasm of unspecified site of left female breast Coding Level of Care Code Est Pt Level 3 (17982) Complex EM visit Add On G2211 Diagnoses Mucinous carcinoma of left breast C50.912
[2025-02-03 15:42] VITALS: BMI 23.5
--- OUTSIDE RECORDS SUMMARY | 2025-02-03 18:53 | XMS_ITS | Patient Health Record ---
Author Organization [facility] Address [address] [place] [address] Care Team Providers Care Investigator Welfare Name Role Phone ANNEL SIMS M.D. Primary Care Provider Elen Troy Lindsay [phone] Allergies Allergen (clinical drug ingredient) Drug/Non Drug [...] Problem Status W/U Status Risk Notes Problem 397973344 Encounter for screening for malignant neoplasm of colon (Z12.11) Active confirmed Problem [id number] Pre-procedural examination (Z01.818) Active confirmed Problem 62540474 Irritable bowel syndrome, unspecified type (K58.9) Active confirmed Problem Diverticular disease of colon (950484722) Diverticulosis large intestine w/o perforation or abscess w/o bleeding (K57.30) Active confirmed Plan Of Treatment Future Test Test Name Order Date COLONOSCOPY 03/19/2018 COLONOSCOPY 01/18/2023 Insurance Providers Payer Name Payer Address Payer Phone Subscriber Number Group Number Insured Name Patient Relationship to Insured Coverage Start Date Coverage End Date [facility] [address] [place], [place] [id number] SOM PALOMARES Self - patient is the insured Medical (General) History Medical History History ICD Code Iron def anemia---10/2004--Ne g EGD with normal duodenal biopsies and Colonoscopy Panic attacks Hypothyroidism PVC'S---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 Fermin Denies [place],DM,CVA,Lung disease,renal dise ase Surgical History Surgery Date(Month/Year) Knee surgery Shoulder surgery--right shoulder replace ment in 2007 Pilonidal cyst Broken femur Rotator cuff Left lumpectomy for breast cancer with X RT 2019 Eye surgery and cataract surgery Broken left hip 09/2021
== END 2025-02-03 16:19 | disposition home or self-care (01) ==
LOC: HO.HGS 15:40
PROVIDERS: PCP Family Medicine; Visit Provider Surgery
DX: C50.912 Malignant neoplasm of unspecified site of left female breast (principal)
CPT/HCPCS: 99213; G2211

== ENCOUNTER → 2025-02-03 15:40 | Outpatient (BNVA) | payer MEDICARE, SELFPAY | PROVIDERS: PCP Family Medicine; Visit Provider Surgery | DX: Z71.2 Person consulting for explanation of examination or test findings (principal); C50.912 Malignant neoplasm of unspecified site of left female breast; N64.89 Other specified disorders of breast | CPT/HCPCS: 99212 ==

== ENCOUNTER 2025-03-04 07:54 | Outpatient (REF) | payer MEDICARE, SELFPAY ==
--- OUTSIDE RECORDS SUMMARY | 2023-09-24 03:30 | XMS_ITS ---
Author Organization [facility] Address [address] [place] [address] Care Team Providers Care Seat Cover Cutter Name Role Phone ANNEL SIMS M.D. Primary Care Provider Elen vailable Troy Martinez Unavailable [phone] REASON FOR VISIT colon screening Problems Problem Type SNOMED Code ICD Code Onset Dates Problem Status W/U Status Risk Notes Problem Diverticular disease of colon (500060976) Diverticulosis large intestine w/o perforation or abscess w/o bleeding (K57.30) Active confirmed Encounters Encounter Location Date Provider Diagnosis [facility] [place] [address] [place] [phone] 09/24/2023 Troy Martinez Encounter for scre ening [...] Progress Notes * JELANISOMDOB:[birth year] (69 yo F)Acc No.[id number]:09/24/2023 COLON WITH MAC Patient: SOM SANCHEZ Provider: Shakira Martinez MD :1955 A ge:68 Y S ex:Female Date:09/24/2023 Address:[address] [place], [place] [phone] Pcp:ANNEL SIMS M.D. Subjective: * Chief Complaints: [...] MD Date: 0 09/24/2023 Generated for Leelee costello/Christine/Richasmitting on: 07:58 AM EDT
--- NOTE | ~2025-03-04 | MM_ITS ---
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 COMPARISON: Priors on PACS. TECHNIQUE NEEDLE LOC: Proper informed consent is obtained from the patient after discussion of the procedure, potential risks and complications, and alternatives including declining the procedure today. Patient was given an opportunity for questions. The patient appeared to understand. The patient consented to the procedure and signed the consent form. GUIDANCE: Digital mammography. APPROACH: Lateral. TARGET: Mass with clip in the upper outer left breast.. ANESTHESIA: lidocaine 1%: 6 mL. LOCALIZATION SYSTEM: -[employer] LOCallizer Wire-Free Guidance System with 12g needle applicator. -Length: 5 cm. -RADIOFREQUENCY TAG: ID # [id number] DERMATOTOMY: Single skin-[place] dermatotomy performed. RF Tag ID confirmed with LOCalizer Guidance System prior to placement. The skin is prepped and local anesthesia administered. The needle is positioned and RFID tag deployed. Final images demonstrate the LOCalizer RF tag to reside adjacent to the clip. The patient tolerated the procedure well and had no immediate complications. Dressing placed and home instructions reviewed. MM/MM RF Tag device LT IMPRESSION: -Status post left breast RFID localization. Electronically signed by: Cierra Hussein DO 03/04/2025 10:51 AM EDT
--- OUTSIDE RECORDS SUMMARY | 2025-03-04 07:59 | XMS_ITS | Encounter Summary ---
Author Organization [facility] Address [address] [place] [address] Phone Care Team Providers Care Tooth Cutter Spur Name Role Phone Bull Fajardo MD Primary Care Provider +- [phone] Radha Zurita MD Primary Care Provid er Michelle Fitzgerald MD Primary Care Provider [phone] Encounter Details Date Type Department Care Team (Late Contact Info) Description 06/28/2018 Ancillary Orders [facility],Outside Imaging [address] [place], [place] [id number] System, Provider Not In, [place] [address] Social History Tobacco Use Types Packs/Day Years [...] 8:50 AM EDT Office Visit [facility] [address] [place] [address] Jose Yuen DO 22 [place] [address] [email or web address] documented as of this encounter Results * [...] documented as of this encounter Care Teams Tooth Cutter Spur Relationship Specialty Start Date End Date Bull Fajarod MD [address] [place] [address] [email or web address] PCP - General 05/24/1711/30 Radha Zurita MD [address] [place] [address] [email or web address] PCP - General Family Medicine 12/01/21 1 07/18/21 Michelle Fitzgerald MD [address] [place] [address] [email or web address] PCP - General Family Medicine 05/18/22 documented as of this encounter Additional Source Comments The information contained in this document represents components of the legal health record. It is not the complete legal health record.[facility]
--- OUTSIDE RECORDS SUMMARY | 2025-03-04 07:59 | XMS_ITS | Encounter Summary ---
Author Organization [facility] Address [address] [place] [address] Phone Care Team Providers Care Blast Furnace Keeper Helper Name Role Phone Bull Fajardo MD Primary Care Provider [phone]- [phone] Radha Zurita MD Primary Care Provid er Michelle Fitzgerald MD Primary Care Provider + [phone] Reason for Referral * - Closed Specialty Diagnoses / Procedures Referred By Contac t Referred To Contact Procedures [place] Other Outside (No Interpretation) System, Provider Not In, PhD Partners [facility]IN [address] [address] Referral ID Status Reason Start Date Expiration Date Visits Re quested Visits Authorized [id number] Closed 06/28/2018 06/28/2019 1 1 Encounter Details Date Type Department Care Team (Late st Contact Info) Description 06/28/2018 Ancillary Orders [facility],Outside Imaging 30 [place] [address] System, Provider Not In, PhD [facility] [address] [place] [address] Social History Tobacco Use Types Packs/Day Years [...] 8:50 AM EDT Office Visit [facility] [address] [place] [address] Jose Yuen DO [address] [place] [address] [email or web address] documented as of this encounter Results * [...] documented as of this encounter Care Teams Blast Furnace Keeper Helper Relationship Specialty Start Date End Date Bull Fajardo MD [address] [place] [address] [address] [place] [address] [email or web address] PCP - General 05/24/1711/30 Radha Zurita MD [address] [place] [address] 201 [place] [address] [email or web address] PCP - General Family Medicine 12/01/21 1 07/18/21 Michelle Fitzgerald MD [address] [place] [address] [email or web address] PCP - General Family Medicine 05/18/22 documented as of this encounter Additional Source Comments The information contained in this document represents components of the legal health record. It is not the complete legal health record.[facility]
--- OUTSIDE RECORDS SUMMARY | 2025-03-04 07:59 | XMS_ITS | Encounter Summary ---
Author Organization [facility] Address [address] [place] [address] Phone Care Team Providers Care Therapist Physical Name Role Phone Bull Fajardo MD Primary Care Provider +- [phone] Radha Zurita MD Primary Care Provid er Michelle Fitzgerald MD Primary Care Provider [phone] Encounter Details Date Type Department Care Team (Late Contact Info) Description 06/28/2018 Ancillary Orders [facility],Outside Imaging 30 [place], [place] [phone] System, Provider Not In, [place] [address] Social History Tobacco Use Types Packs/Day Years [...] 8:50 AM EDT Office Visit [facility] [address] [place] [address] Jose Yuen DO 22 [place] [address] documented as of this encounter Results * [...] documented as of this encounter Care Teams Therapist Physical Relationship Specialty Start Date End Date uBll Fajardo MD [address] [place] [address] [email or web address] PCP - General 05/24/1711/30 Radha Zurita MD [address] [place] [address] [email or web address] PCP - General Family Medicine 12/01/21 1 07/18/21 Michelle Fitzgerald MD [address] [place] [address] [email or web address] PCP - General Family Medicine 05/18/22 documented as of this encounter Additional Source Comments The information contained in this document represents components of the legal health record. It is not the complete legal health record.[facility]
--- OUTSIDE RECORDS SUMMARY | 2025-03-04 07:59 | XMS_ITS | Encounter Summary ---
Author Organization [facility] Address [address] [place] [address] Phone Care Team Providers Care Textile Cutting Machine Operator Name Role Phone Bull Fajardo MD Primary Care Provider +- [phone] Radha Zurita MD Primary Care Provid er Michelle Fitzgerald MD Primary Care Provider [phone] Encounter Details Date Type Department Care Team (Late Contact Info) Description 06/28/2018 Ancillary Orders [facility],Outside Imaging 30 [place], [place] [phone] System, Provider Not In, [place] [address] Social History Tobacco Use Types Packs/Day Years [...] 8:50 AM EDT Office Visit [facility] [address] [place] [address] Jose Yuen DO 22 [place] [address] [email or web address] documented as of this encounter Results * [...] documented as of this encounter Care Teams Textile Cutting Machine Operator Relationship Specialty Start Date End Date Bull Fajardo MD [address] [place] [address] [email or web address] PCP - General 05/24/1711/30 Radha Zurita MD [address] [place] [address] [email or web address] PCP - General Family Medicine 12/01/21 1 07/18/21 Michelle Fitzgerald MD [address] [place] [address] [email or web address] PCP - General Family Medicine 05/18/22 documented as of this encounter Additional Source Comments The information contained in this document represents components of the legal health record. It is not the complete legal health record.[facility]
--- OUTSIDE RECORDS SUMMARY | 2025-03-04 08:00 | XMS_ITS | Encounter Summary ---
Author Organization [facility] Address [address] [address] Phone Care Team Providers Care Cessation Systems Outreach Specialist Name Role Phone Bull Fajardo MD Primary Care Provider +- [phone] Radha Zurita MD Primary Care Provid er Michelle Fitzgerald MD Primary Care Provider [phone] Encounter Details Date Type Department Care Team (Late Contact Info) Description 06/28/2018 Ancillary Orders [facility],Outside Imaging 30 [place], [place] [phone] System, Provider [place] In, [place] [address] Social History Tobacco Use Types Packs/Day Years [...] AM EDT Office Visit [facility] [address] [place] [address] Jose Yuen DO 22 [place] [address] [email or web address] documented as of this encounter Results * [...] documented as of this encounter Care Teams Cessation Systems Outreach Specialist Relationship Specialty Start Date End Date Bull Fajardo MD [address] [place] [address] [email or web address] PCP - General 05/24/1711/30 Radha Zurita MD [address] [place] [address] [email or web address] PCP - General Family Medicine 12/01/21 1 07/18/21 Michelle Fitzgerald MD [address] [place] [address] [email or web address] PCP - General Family Medicine 05/18/22 documented as of this encounter Additional Source Comments The information contained in this document represents components of the legal health record. It is not the complete legal health record.[facility]
--- OUTSIDE RECORDS SUMMARY | 2025-03-04 08:00 | XMS_ITS | Encounter Summary ---
Author Organization [facility] Address [address] [place] [address] Phone Care Team Providers Care Die Maintenance Technician Name Role Phone Bull Fajardo MD Primary Care Provider +- [phone] Radha Zurita MD Primary Care Provid er Michelle Fitzgerald MD Primary Care Provider [phone] Encounter Details Date Type Department Care Team (Late st Contact Info) Description 04/26/2018 Ancillary Orders [facility] Internal Medicine [address] [place] [address] Bull Fajardo MD [address] [place] [address] [email or web address] Pain in both hands Social History [...] AM EDT Office Visit [facility] [address] [place] [address] Jose Yuen, [address] [place] [address] [email or web address] documented as of this encounter Results * [...] documented as of this encounter Care Teams Die Maintenance Technician Relationship Specialty Start Date End Date Bull Fajardo MD [address] [place] [address] [email or web address] PCP - General 05/24/1711/30 Radha Zurita MD [address] [place] [address] [email or web address] PCP - General Family Medicine 12/01/21 1 07/18/21 Michelle Fitzgerald MD [address] [place] [address] (work) [email or web address] PCP - General Family Medicine 05/18/22 documented as of this encounter Additional Source Comments The information contained in this document represents components of the legal health record. It is not the complete legal health record.[facility]
--- OUTSIDE RECORDS SUMMARY | 2025-03-04 08:00 | XMS_ITS | Clinical Summary ---
Author Organization [facility] Address [address] [place] [address] Phone Care Team Providers Care Check Processor Name Role Phone Michelle Fitzgerald MD Primary Care Provider + [phone] Allergies Active Allergy Reactions Criticality Noted Date [...] min. 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 Scanlon for breast cancer. I asked [...] carcinoma left breast, MSBR grade 1, ER+, TN-, HER2-; lumpectomy + sentinel lymph node biopsy [...] Osteoporosis Overview (05/19/2021): Last DXA 11/05/20 at [facility] Assessment & Plan (01/28/2025 9:27 AM [...] 11/06/2022 that has to be done at [facility]. Assessment & Plan (09/20/2021 9:46 AM [...] Prolia which is a rank ligand antagonist. Exiv-uc-ixeo studies have shown the Prolia works better [...] AM EDT Office Visit [facility] [address] [place] [address] Jose Yuen, Other osteoporosis without current pathological fracture (Primary [...] 8:50 AM EDT Office Visit [facility] [address] [place] [address] Jose Yuen DO [address] [place] [address] [email or web address] Maintenance Due Date Last Done Comments [...] this topic Medical Devices Implanted Type Area Division Merchandise Manager Device Identifier Shelf Expiration Date Model / Serial / Lot Quik-Use Femoral Bone Cement Prep Kid With Thomas Medullary Cement Plugs Implanted:Qty: 1 on 09/21/2021 by Bull Velázquez MD at [facility] Left: Hip OPAL 02/25/2026 [id number] / / [id number] Description:quik-use femoral bone cement prep kit with thomas medullary cement plugs: (1) Cement plug implanted Cement Bone 1x40 Standard - [id number] Implanted:Qty: 2 on 09/21/2021 by Bull Velázquez MD at [facility] Left: Hip OPAL / DIV OF [place] 01/19/2024 [id number] / / [id number] Versys Hip System Distal Hip Centralizer Implanted:Qty: 1 on 09/21/2021 by Bull Velázquez MD at [facility] Left: Hip OPAL 09/06/2030 [id number] / / [id number] Hip Stem 11mm Femoral Echo Fx [place] [employer] - [id number] Implanted:Qty: 1 on 09/21/2021 by Bull Velázquez MD at [facility] Left: Hip [employer] 07/01/2031 [id number] / / [id number] Acetabular Shell 45mm Endo Ii Titanium Alloy Unipolar - [id number] Implanted:Qty: 1 on 09/21/2021 by Bull Velázquez MD at [facility] Left: Hip [employer] 12/10/2030 [id number] / / [id number] Hip Insert 6mm Femoral Bio Wil[place]erson Ii Endo Titanium Alloy Taper Minus - [id number] Implanted:Qty: 1 on 09/21/2021 by Bull Velázquez MD at [facility] Left: Hip [employer] 12/14/2030 [id number] / / [id number] Procedures Procedure Name Priority Date/Time Associated Diagnosis [...] EDT Routine general medical examination at a [facility] from Last 3 Months or Most Recently Relevant to Health Maintenance Results * DXA Monitoring (11/18/2024 12:22 PM EDT) Anatomical Region Laterality Modality Bone Density Bone Density us Jose Yuen DO IMG BD BONE DENSITY DEXA Final R esult * HM COLONOSCOPY FOR RESULT ENTRY ONLY (09/24/2023 12:24 PM EDT) us Flor Provider HEALTH MAINTENANCE Final Result * TSH (09/12/2021 3:10 PM EDT) TSH 3.60 0.27 - 4.20 uIU/mL [facility] Blood 09/12/2021 3:10 PM EDT 09/12/2021 3:17 PM EDT Bull Fajardo MD LAB BLOOD ORDERABLES Final Result [facility] [address] [place] [address] * (ABNORMAL) Lipid panel (05/12/2021 3:07 PM EST) HDL 96 mg/dL [facility] Comment: Interpretation <40 mg/dL: Low HDL cholesterol (major risk factor for CHD) Greater than or equal to 60 mg/dL: High HDL cholesterol ( negative risk factor for CHD) HDL - cholesterol is affected by a number of factors, e.g. smoking, excerise, hormones, sex and age. CHOLESTEROL 286(H) 0 - 240 mg/dL [facility] TRIGLYCERIDES 129 30 - 160 mg/dL [facility] LDL 164(H) 50 - 129 mg/dL [facility] Comment: LDL levels in terms of risk for coronary heart disease: <100 mg/dL: Optimal 100-129 mg/dL: Near or above optimal 130-159 mg/dL: Borderline high 160-189 mg/dL: High >190 mg/dL: Very High CARDIAC RISK RATIO 3.0(L) 3.3 - 4.4 C [facility] Blood 05/12/2021 3:07 PM EST 05/12/2021 3:10 PM EST Bull Fajardo MD LAB BLOOD ORDERABLES Final Result Performing Organization Address City/[facility]/ZIP Co de Phone Number [address] [address] * MAMMOGRAPHY FOR RESULT ENTRY ONLY (05/25/2020) Flor Voss MD HEALTH MAINTENANCE Edited Result - Final * Hepatitis C antibody, qualitative (01/19/2020 8:04 AM EDT) HCV NON-REACTIV E NON-REACTI VE [facility] Blood 01/19/2020 8:04 AM EDT 01/19/2020 8:27 AM EDT Bull Fajardo MD LAB BLOOD ORDERABLES Final Result Performing Organization Address City/[facility]/ZIP Co de Phone Number [address] [address] from Last 3 Months or Most Recently Relevant to Health Maintenance Insurance MEDICARE PART A & B Member Subscriber Plan / Payer (Ef fective 2019-Present) Name:Lilian Tamayo Member ID:[id number] Relation to Subscriber:Self Name:Lilian Tamayo Subscriber ID:[id number] Payer ID:[id number] Group ID:Not on file Type:Medicare Address: [employer] [address] [place] [address] [place] [address] MEDICARE PPO BLUE REPLACEMENT MEDICARE PART A & B Member Subscriber Plan / Payer (Ef fective 2019-Present) Name:Lilian Tamayo Member ID:[id number] Relation to Subscriber:Self Name:Lilian Tamayo Subscriber ID:[id number] Payer ID:[id number] Group ID:Not on file Type:Medicare Address: [employer] [address] [place] [id number] [place] [address] MEDICARE PPO BLUE REPLACEMENT MEDICARE PART A & B MEDICARE PART A & B MEDICARE PART A & B [place] BLUE RE[place]AC[place] MEDICARE PART A & B MEDICARE PART A & B [facility] MEDICARE PPO BLUE REPLACEMENT MEDICARE PART A & B [facility] MEDICARE PPO BLUE REPLACEMENT MEDICARE PART A & B [place] MEDICARE P[place] BLUE REPLACEMENT Advance Directives For more information, please contact: [phone] (9AM - 5PM [facility], Sunday-Sunday) Documents on File Type Date Recorded Patient Security Systems Administrator Expl anation Healthcare Proxy 07/24/2018 * Full Code (Latest Code Status on File) Date Activated Date Inactivated Comments 09/21/2021 4:47 AM Question Answer Comments Code Status Confirmed With: Patient Code Status Communicated To: Inpatient Attending Care Teams Check Processor Relationship Specialty Start Date End Date Michelle Fitzgerald MD [email or web address] PCP - General Family Medicine 05/18/22 Additional Source Comments The information contained in this document represents components of the legal health record. It is not the complete legal health record.[facility]
--- OUTSIDE RECORDS SUMMARY | 2025-03-04 08:00 | XMS_ITS | Encounter Summary ---
Author Organization [facility] Address [address] [place] [address] [place] [address] Phone Care Team Providers Care Brushing Machine Operator Name Role Phone Bull Fajardo MD Primary Care Provider [phone]- [phone] Radha Zurita MD Primary Care Provid er Michelle Fitzgerald MD Primary Care Provider + [phone] Encounter Details Date Type Department Care Team (Late st Contact Info) Description 09/21/2021 Procedure Pass OR Admitting Dept - Virtual Department [address] [place], [place] [id number] Social History Tobacco Use Types Packs/Day Years [...] high school, GED, job training, learning the Guyanese language, technical skills, or developing parenting skills)? [...] AM EDT Office Visit [facility] [address] [place] [address] Jose Yuen DO [address] [place] [address] [email or web address] documented as of this encounter Visit Diagnoses [...] documented as of this encounter Care Teams Brushing Machine Operator Relationship Specialty Start Date End Date Bull Fajardo MD [address] [place] [address] [address] [place] [address] [email or web address] PCP - General 05/24/1711/30 Radha Zurita MD 22 [facility] [address] [place] [address] [email or web address] PCP - General Family Medicine 12/01/21 1 07/18/21 Michelle Fitzgerald MD [address] [place] [address] [email or web address] PCP - General Family Medicine 05/18/22 documented as of this encounter Additional Source Comments The information contained in this document represents components of the legal health record. It is not the complete legal health record.[facility]
--- OUTSIDE RECORDS SUMMARY | 2025-03-04 08:00 | XMS_ITS | Patient Health Record ---
Author Organization [facility] Address [address] [place] [address] Care Team Providers Care Unit Tender Name Role Phone ANNEL SIMS M.D. Primary Care Provider Elen Troy Lindsay [phone] Allergies Allergen (clinical drug ingredient) Drug/Non Drug [...] Problem Status W/U Status Risk Notes Problem Screening for malignant neoplasm of colon (486363029) Encounter for screening for malignant neoplasm of colon (Z12.11) Active confirmed Problem Pre-procedure evaluation check (544434727) Pre-procedural examination (Z01.818) Active confirmed Problem Irritable bowel syndrome (05326070) Irritable bowel syndrome, unspecified type (K58.9) Active confirmed Problem Diverticular disease of colon (847665113) Diverticulosis large intestine w/o perforation or abscess w/o bleeding (K57.30) Active confirmed Plan Of Treatment Future Test Test Name Order Date COLONOSCOPY 03/19/2018 COLONOSCOPY 01/18/2023 Insurance Providers Payer Name Payer Address Payer Phone Subscriber Number Group Number Insured Name Patient Relationship to Insured Coverage Start Date Coverage End Date [facility] [address] [place], [place] [id number] SOM PALOMARES Self - patient is the insured Medical (General) History Medical History History ICD Code Iron def anemia---10/2004--Ne g EGD with normal duodenal biopsies and Colonoscopy Panic attacks Hypothyroidism PVC'S---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 Fermin Denies [place],DM,CVA,Lung disease,renal dise ase Surgical History Surgery Date(Month/Year) Knee surgery Shoulder surgery--right shoulder replace ment in 2007 Pilonidal cyst Broken femur Rotator cuff Left lumpectomy for breast cancer with X RT 2018 Eye surgery and cataract surgery Broken left hip 09/2021
[2025-03-04] MEDS: Lidocaine HCl 1 % 20 ML VIAL 5 ML SUBCUT (09:18)
== END 2025-03-04 07:55 | disposition home or self-care (01) ==
LOC: HO.MAMMO 07:54
PROVIDERS: PCP Family Medicine; Visit Provider Surgery
DX: C50.412 Malignant neoplasm of upper-outer quadrant of left female breast (principal); Z17.0 Estrogen receptor positive status [ER+]
CPT/HCPCS: 19281; C1819; J2003

== ENCOUNTER → 2025-03-04 08:00 | Outpatient (BNV) | payer MEDICARE, SELFPAY | PROVIDERS: PCP Family Medicine; Visit Provider Internal Medicine | DX: C50.412 Malignant neoplasm of upper-outer quadrant of left female breast (principal) | CPT/HCPCS: 19281 ==

== ENCOUNTER 2025-03-12 06:59 | Day surgery (SDC) | payer MEDICARE, SELFPAY ==
[2025-03-10 09:11] VITALS: BMI 23.4
--- NOTE | 2025-03-10 10:59 | HO.ANESPROP2 ---
Documented by User: Dorie Spivey NP 03/10/25 11:03 HPI - Anesthesia Eval Consult details Narrative: 69yo F for Left Breast Lumpectomy w/LOCalizer, [place] Node Biopsy and LEFT Axilla PMFSH Active Problems Active Problems: All Active Problems Mucinous carcinoma of left breast (Acute) Abnormal mammogram of left breast (Acute) Anemia (Acute) At high risk for breast cancer (Acute) Osteoporosis (Acute) Breast cancer, left (Acute) Past Medical History Medical History Post-operative nausea and vomiting PVCs (premature ventricular contractions) Hx of skin cancer, basal cell (~10/19/22) Basal cell carcinoma (BCC) in situ of skin (~10/19/22) History of fracture of arm Hx of fracture of femur Osteoporosis Hypothyroidism Breast cancer, left Family History Family History Maternal Grandmother Diabetes Father HTN (hypertension) Stroke Mother Pulmonary fibrosis HTN (hypertension) Sister HTN (hypertension) Family/Other Acute Crohn's disease Paternal Uncle Stomach cancer Surgical History Surgical History H/O colonoscopy History of excision of lesion (10/2022) History of hip replacement History of Mohs surgery for squamous cell carcinoma of skin (03/2021) Hx of rotator cuff surgery History of left knee surgery History of lumpectomy of left breast History of total replacement of right shoulder joint History of Problems with Anesthesia: No Social History Social History Household Members: None Housing: Apartment Are you a primary foster care worker to a significant other at home: No Do you presently have visiting nurse or other home services: No Alcohol intake: former Patient Tobacco Use Status: Never used Tobacco Second Hand Smoke Exposure: No Are you DNR?: No Advance Directives: No Advance Directives Information Provided: Yes service: No Current occupational status: employed Meds Allergies Allergy/AdvReac Type Severity Reaction Status Date / Time adhesive tape (ADHESIVE TAPE) Allergy Intermediate BLISTERS Verified 02/10/25 11:48 naproxen (Aleve) Allergy Intermediate diarrhea Verified 02/10/25 11:48 Sulfa (Sulfonamide Allergy Intermediate RASH Verified 02/10/25 11:48 Antibiotics) Home Medications ?Medication ?Instructions ?Recorded ?Confirmed ?Last Taken ?Type cholecalciferol (vitamin D3) 25 25 mcg PO BID 04/27/20 03/10/25 09/23/23 History mcg (1,000 unit) capsule levothyroxine 88 mcg tablet 100 mcg PO DAILY 04/27/20 03/10/25 03/12/25 History sertraline 100 mg tablet 100 mg PO DAILY 04/27/20 03/10/25 03/12/25 History calcium carbonate (Calcium 500) 500 mg PO DAILY 07/18/22 03/10/25 09/23/23 History Exam Height,Weight and Vital Signs: Height 5 ft 6 in Weight 65.771 kg Pertinent Lab Results Pertinent Lab Results: Laboratory Tests 02/10/25 12:34 WBC 8.7 Hgb 11.5 L Hct 33.9 L Plt Count 224 Sodium 139 Potassium 4.8 Chloride 104 Carbon Dioxide 25 BUN 16 Creatinine 0.69 Assessment and Plan Assessment Anesthesia Assessment: Chart Reviewed Final Anesthetic Review History of Problems with Anesthesia: No Documented by User: Trey Adams MD 03/12/25 12:23 PMFSH Past Medical History Medical History Post-operative nausea and vomiting PVCs (premature ventricular contractions) Hx of skin cancer, basal cell (~10/19/22) Basal cell carcinoma (BCC) in situ of skin (~10/19/22) History of fracture of arm Hx of fracture of femur Osteoporosis Hypothyroidism Breast cancer, left Family History Family History Maternal Grandmother Diabetes Father HTN (hypertension) Stroke Mother Pulmonary fibrosis HTN (hypertension) Sister HTN (hypertension) Family/Other Acute Crohn's disease Paternal Uncle Stomach cancer Family history of problems with anesthesia: No Surgical History Surgical History H/O colonoscopy History of excision of lesion (10/2022) History of hip replacement History of Mohs surgery for squamous cell carcinoma of skin (03/2021) Hx of rotator cuff surgery History of left knee surgery History of lumpectomy of left breast History of total replacement of right shoulder joint History of Problems with Anesthesia: Yes (ponv) Social History Social History Household Members: None Housing: Apartment Are you a primary foster care worker to a significant other at home: No Do you presently have visiting nurse or other home services: No Alcohol intake: former Patient Tobacco Use Status: Never used Tobacco Second Hand Smoke Exposure: No Are you DNR?: No Advance Directives: No Advance Directives Information Provided: Yes service: No Current occupational status: employed Meds Allergies Allergy/AdvReac Type Severity Reaction Status Date / Time adhesive tape (ADHESIVE TAPE) Allergy Intermediate BLISTERS Verified 02/10/25 11:48 naproxen (Aleve) Allergy Intermediate diarrhea Verified 02/10/25 11:48 Sulfa (Sulfonamide Allergy Intermediate RASH Verified 02/10/25 11:48 Antibiotics) Home Medications ?Medication ?Instructions ?Recorded ?Confirmed ?Last Taken ?Type cholecalciferol (vitamin D3) 25 25 mcg PO BID 04/27/20 03/10/25 09/23/23 History mcg (1,000 unit) capsule levothyroxine 88 mcg tablet 100 mcg PO DAILY 04/27/20 03/10/25 03/12/25 History sertraline 100 mg tablet 100 mg PO DAILY 04/27/20 03/10/25 03/12/25 History calcium carbonate (Calcium 500) 500 mg PO DAILY 07/18/22 03/10/25 09/23/23 History Exam Exam Date and Time: 03/12/2025 Airway Mallampati Class: II TM Dist: >3cm Neck ROM: Full Loose/Missing/Broken Teeth: No Heart: rrr Lungs: ctab vesicular Assessment and Plan Assessment Anesthesia Assessment: Anesthesia Plan Discussed Final Anesthetic Review Family History of Problems with Anesthesia: No History of Problems with Anesthesia: Yes (ponv) NPO: Yes ASA Class: II Final Preanesthetic Review: No Changes in Pt Med Stat, Meds/Allgs Chart Reviewed, Consent Obtained/Reviewed and Anes Risks/Benef Reviewed Patient Risk: Low Procedure Risk: Low Anesthetic Plan Anesthetic Plan: GA Disposition: Standard PACU
--- NOTE | ~2025-03-12 | MM_ITS ---
3 left breast specimen radiographs demonstrate the tag and the cork marker clip within the specimen. Electronically signed by: Cierra Hussein DO 03/12/2025 01:23 PM EDT
--- NOTE | ~2025-03-12 | NM_ITS ---
EXAMINATION: Nuclear medicine sentinel node with imaging. CLINICAL INDICATION: Left breast mucinous carcinoma. COMPARISON: Left breast needle localization 03/04/2025. TECHNIQUE: Following explaining left breast sentinel node imaging procedure,, benefits and risk, a written consent was obtained by Dr. Mazariegos. 4% lidocaine jelly cream was applied around the left breast areola 30 minutes prior to the exam. After patient in writing in nuclear medicine department the area around the left breast was cleaned in aseptic manner. 0.5 mCi of technetium 99m Tilmanocept was injected in 4 quadrants around the left breast areola and imaging obtained 30 minutes later. Agent or procedure extremely well. Findings/ NM/NM sentinel node w imaging impression: There is a quadrant isotope activity seen on the left breast areola. There are several sentinel nodes seen along the left anterior axilla. No activity seen along the internal mammary lymph nodes. Electronically signed by: Papo Acevedo MD 03/12/2025 01:28 PM EDT
[2025-03-12] MEDS: Lidocaine HCl 4 % Topical 50 ML SOLUTION 1 APPL TOPICAL (07:00)
[2025-03-12] MEDS: Lactated Ringers 1,000 ML 100 ML IVCONT (07:17)
[2025-03-12 07:39] VITALS: BMI 23.6
[2025-03-12 07:40] VITALS: BP 143/70; PULSE 71; RESP 16; TEMP 36.9; O2SAT 96
--- NOTE | 2025-03-12 09:15 | MHC.SHP ---
Pre-Procedural Eval Section A - 24 Hr Update-Section A only Date of Service: 03/12/25 The patient is an INPATIENT: No Changes since office visit: Yes Patient answered all questions; No Cold of Flu in the past 2 weeks, No New Medical Problems and No Changes in Medication The patient has been examined within 24 hours of the surgical procedure. The History & Physical has been completed within 30 days and I have reviewed it.: No Section B - Complete if H&P > 30 days Chief Complaint: Malignant neoplasm of unspecified site of left Details of Present Illness: Patient presents today for left breast lumpectomy with localizer and left axillary sentinel node biopsy. Relevant Family History (Specify if Yes): No Relevant Social History: None Present Medications: see Short Stay Collaborative assessment Medical History: Significant History (Previous history of left breast infiltrating ductal carcinoma) History of Previous Operations: Relevant previous surgery/procedure and date(s) (Left breast lumpectomy, left axillary sentinel node biopsy (Dr. Camejo November 2018).) Allergies: Allergies Allergy/AdvReac Type Severity Reaction Status Date / Time adhesive tape (ADHESIVE TAPE) Allergy Intermediate BLISTERS Verified 02/10/25 11:48 naproxen (Aleve) Allergy Intermediate diarrhea Verified 02/10/25 11:48 Sulfa (Sulfonamide Allergy Intermediate RASH Verified 02/10/25 11:48 Antibiotics) Review of Systems Sugical H&P ROS: Negative: Constitution, Cardiovascular, Respiratory, Neurological, Psychiatric, Hem-Onc, Allergic/Immunologic, Gastrointestinal, Genitourinary, Musculoskeletal, Integumentary and Endocrine Exam Surgical H&P Exam: Normal: HEENT, Normal: Heart, Normal: Lungs, Normal: Extremities, Normal: Abdomen and Normal: Skin Plan Diagnosis/Plan: Unchanged I have reviewed the history and physical and performed a pertinent physical examination on my patient. No changes have occurred unless specified. Time Spent With Patient Time: Total time managing care of this patient today ____ minutes.
--- NOTE | 2025-03-12 12:06 | PC.NURSE ---
pt recieved one liter of fluid in preop voided x2
--- NOTE | 2025-03-12 14:01 | P.OP_ITS ---
Operative Note Operative Note Date of Service: 03/12/25 Narrative: Preoperative diagnosis: Mucinous carcinoma left breast Postoperative diagnosis: Same Procedure: Left breast lumpectomy with localizer, left axillary sentinel node biopsy Surgeon: Jose Mazarieogs MD Conveyor Man: Miracle Baugh PA-C; Jon Garrison PA-C Anesthesia: General LMA Indications for procedure: 69-year-old female presenting with a density in the left breast upper outer quadrant. She has a prior history of a left breast invasive ductal carcinoma and previously underwent left breast lumpectomy with needle localization, and left axillary sentinel node biopsy. This was followed by radiation therapy. She returns now with a Radiologic guided biopsy which revealed mucinous carcinoma, ER/NC positive, HER2 Niko negative. She was evaluated by Medical and Radiation Oncology and felt to be a suitable candidate for lumpectomy. She presents now for left breast lumpectomy with localizer and left axillary sentinel node biopsy Operative findings: Fibrotic changes from previous radiation. Marking clip and localizer clip within the specimen x-ray. Specimen: Left breast lumpectomy, inferior posterior margin, superior inferior margin, sentinel node 1, sentinel node 2 Estimated blood loss: 10 mL Complications: None Procedure details: Patient was brought to the OR and placed in a supine position. After administering general anesthesia, the patient's left breast and axilla were prepped with ChloraPrep and draped in a sterile fashion. A surgical time-out was called the consent confirmed. Patient received preoperative antibiotics and Venodyne boots were in place. Local anesthesia was infiltrated in a curvilinear fashion over the localizer clip in the upper outer quadrant. A curvilinear incision was then made with a scalpel and carried out through subcutaneous tissue. Superior and inferior skin flaps were then created with electrocautery. The localizer device was used to obtain of core of tissue surrounding the marking clip. This has begun with the superior margin followed by the medial margin, lateral margin, inferior margin, and posterior margin. The specimen was removed and marked with a long suture at the lateral margin, short suture on the superior margin, and looped suture at the posterior margin. This was imaged in the OR which confirmed the marking clip and localizer clip within the specimen. Some firm tissue was noted in the inferior posterior vicente n and this was excised in the margins marked. This was sent as a permanent specimen. After review by pathology additional margin from the anterior inferior margin was also obtained. Attention was then directed to the left axilla. The gamma probe was used to identify the area of increased activity. A curvilinear incision was made in the lower portion of the axilla. An incision was then carried down into the subcutaneous tissue and passed the clavipectoral fascia. Gamma probe was used to identify areas of increased activity. Approximately 3 very small lymph nodes were identified with increased activity. The 1st specimen had 2 lymph nodes in the 2nd had 1 lymph node visible. No other palpable nodes or radioactive nodes could be identified in the axilla. Wounds were checked for hemostasis using electrocautery. Both breast and axillary incisions were irrigated with saline solution and suctioned dry. Beginning in the breast incision deep breast tissue and superficial breast tissue were then reapproximated using interrupted 3-0 Polysorb sutures. Dermis was reapproximated using interrupted 3-0 Polysorb sutures. Skin was closed using a running subcuticular 4-0 Polysorb suture. Axillary incision was also closed with 3-0 Polysorb suture in the clavipectoral fascia as well as dermis. Skin was closed using a running subcuticular 4-0 Polysorb suture. Steri-Strips, 4 x 4 gauze and Tegaderm were applied to both incisions. The patient tolerated the procedure well. Sponge, instrument, and needle counts reported as correct. The patient was transferred to PACU in stable condition. Please note: This procedure was performed with curative intent Breast Fisher Node Biopsy Substrate(s) used for sentinel node biopsy in the non-neoadjuvant setting: Radiotracer Substrate(s) used for sentinel node biopsy in the neoadjuvant setting: N/A All colored nodes or non-colored nodes present at the end of a dye filled lymphatic channel were removed, if dye was used as the substrate for localization: N/A All significantly radioactive nodes were removed, if radionuclide was used as the substrate for localization: Yes All palpably suspicious nodes were removed, if present: Yes If clips were placed in pathology-involved nodes, those nodes were identified and removed: N/A Procedure performed with curative intent?: Yes General Surg. - Synoptic Notes Breast Fisher Node Biopsy Substrate(s) used for sentinel node biopsy in the non-neoadjuvant setting: Radiotracer Substrate(s) used for sentinel node biopsy in the neoadjuvant setting: N/A All colored nodes or non-colored nodes present at the end of a dye filled lymphatic channel were removed, if dye was used as the substrate for localization: N/A All significantly radioactive nodes were removed, if radionuclide was used as the substrate for localization: Yes All palpably suspicious nodes were removed, if present: Yes If clips were placed in pathology-involved nodes, those nodes were identified and removed: N/A Procedure performed with curative intent?: Yes
[2025-03-12 14:24] VITALS: BP 133/69; PULSE 111; RESP 14; TEMP 36.1; O2SAT 96
[2025-03-12 14:29] VITALS: BP 128/66; PULSE 98; RESP 14; O2SAT 95
[2025-03-12 14:34] VITALS: BP 128/66; PULSE 102; RESP 11; O2SAT 97
[2025-03-12 14:39] VITALS: BP 122/64; PULSE 95; RESP 14; O2SAT 96
[2025-03-12 14:58] VITALS: BP 123/58; PULSE 99; RESP 16; TEMP 36.4; O2SAT 96
== END 2025-03-12 15:22 | disposition home or self-care (01) ==
PROVIDERS: PCP Family Medicine; Visit Provider Surgery
PROC: (CPT 19301; principal; 2025-03-12 10:40)
PROC: (CPT 19301; 2025-03-12 10:40)
DX: C50.412 Malignant neoplasm of upper-outer quadrant of left female breast (principal); Z17.0 Estrogen receptor positive status [ER+]; Z17.21 Progesterone receptor positive status; Z17.32 Human epidermal growth factor receptor 2 negative status; Z79.810 Long term (current) use of selective estrogen receptor modulators (SERMs); Z85.3 Personal history of malignant neoplasm of breast; Z92.3 Personal history of irradiation; Z85.828 Personal history of other malignant neoplasm of skin; I49.3 Ventricular premature depolarization; Z79.899 Other long term (current) drug therapy; Z88.2 Allergy status to sulfonamides; L23.1 Allergic contact dermatitis due to adhesives; Z88.6 Allergy status to analgesic agent; Z87.81 Personal history of (healed) traumatic fracture; Z98.890 Other specified postprocedural states
CPT/HCPCS: 19301; 38525; 38900; 78195; 88305; 88307; 88342; A9520; J0131; J0690; J1100; J1453; J2003; J2371; J2405; J2704; J3010

== ENCOUNTER → 2025-03-12 06:59 | Outpatient (BNV) | payer MEDICARE, SELFPAY | PROVIDERS: PCP Family Medicine; Visit Provider Surgery | DX: C50.912 Malignant neoplasm of unspecified site of left female breast (principal) | CPT/HCPCS: 19302 ==

== ENCOUNTER → 2025-03-12 08:26 | Outpatient (BNV) | payer MEDICARE, SELFPAY | PROVIDERS: PCP Family Medicine; Visit Provider Radiology Diagnostic Radiology | DX: C50.912 Malignant neoplasm of unspecified site of left female breast (principal) | CPT/HCPCS: 78195 ==

== ENCOUNTER 2025-03-23 09:24 | Outpatient (AMB) | payer MEDICARE, SELFPAY ==
--- OUTSIDE RECORDS SUMMARY | 2023-09-24 02:30 | XMS_ITS ---
Author Organization [facility] Address [address] [place] [address] Care Team Providers Care Piece Presser Name Role Phone ANNEL SIMS M.D. Primary Care Provider Elen vailable Troy Martinez Unavailable [phone] REASON FOR VISIT colon screening Problems Problem Type SNOMED Code ICD Code Onset Dates Problem Status W/U Status Risk Notes Problem Diverticular disease of colon (467935504) Diverticulosis large intestine w/o perforation or abscess w/o bleeding (K57.30) Active confirmed Encounters Encounter Location Date Provider Diagnosis [facility] [place] [address] [place] [id number] 09/24/2023 Troy Martinez Encounter for scre ening colonoscopy Z12.11 and Diverticulosis large intestine w/o perforation or abscess w/o bleeding K57.30 Assessments Encounter Date Diagnosis (ICD Code) Assessment Notes Treatment Notes Treatment Clinical Notes Section Notes 09/24/2023 Encounter for screening colonoscopy (ICD-10 - Z12.11) 09/24/2023 Diverticulosis large intestine w/o perforation or abscess w/o bleeding (ICD-10 - K57.30) Plan Of Treatment No Information Progress Notes * JELANISOMDOB:[birth year] (69 yo F)Acc No.[id number]:09/24/2023 COLON WITH MAC Patient: SOM SANCHEZ Provider: Shakira Martinez MD :1955 A ge:68 Y S ex:Female Date:09/24/2023 Address:[address] [place], [place] [phone] Pcp:ANNEL SIMS M.D. Subjective: * Chief Complaints: * 1 . Colon screening. * Medical History: Objective: * Vitals: Assessment: * Assessment: 1. E ncounter for screening colonoscopy - Z12.11 (Primary) 2 . D iverticulosis large intestine w/o perforation or abscess w/o bleeding - K57.30 Plan: * Treatment: * Procedure Codes: G 0121 COLOREC CNCR SCR;COLNSCPY NO HI RSK, 0529F INTRVL 3+YRS PTS CLNSCP DOCD, Modifiers: 8P , 0528F RCMND FLW-UP 10 YRS DOCD, Modifiers: 1P * * The named appointment provid er may or may not be the originator of this progress note, and it is not deemed complete until electronically signed by the appointment provider. Sign off status: Pending * Provider: Shakira Martinez MD Date: 0 09/24/2023 Generated for Leelee costello/Christine/Billransmitting on: 05/23/2024 10:34 AM EST
[2025-03-23 09:32] VITALS: BP 129/60; PULSE 115
--- NOTE | 2025-03-23 09:32 | MHC.OFFVIS ---
Vital Signs 03/23/25 09:32 BP 129/60 Blood Pressure Location Rt brachial Position Sitting Pulse 115 H Intake Visit Reasons: s/p lft breast lumpectomy Intake Note: Patient is seen in office for post op assessment post left breast lumpectomy. Patient c/o: tender rash on lt axilla area. Using 1%HC. Reports mild improvement but rash still there. Ear Nose Throat Surgeon Required: No Accompanied by: twin sister Allergies adhesive tape (ADHESIVE TAPE) Allergy (Intermediate, Verified 03/23/25 09:33) BLISTERS naproxen (Aleve) Allergy (Intermediate, Verified 03/23/25 09:33) diarrhea Sulfa (Sulfonamide Antibiotics) Allergy (Intermediate, Verified 03/23/25 09:33) RASH HPI Comments Details: 69-year-old female patient, former patient of Dr. Camejo with a history of left breast infiltrating ductal carcinoma, grade 1, 1.5 cm in diameter with DCIS, ER positive, [place]/HER2 negative, s/p left breast lumpectomy with needle localization and left axillary sentinel node biopsy on 06/18/2018 (pT1c N0 (sn) (i-)), followed by adjuvant radiation therapy completed in September 2018 and tamoxifen started in November 2018. A screening mammogram performed on 06/13/2024 revealed a left breast asymmetry in the lateral breast posterior depth seen on CC view and confirmed on additional imaging on 06/27/2024. No ultrasound correlate could be identified. This was felt to be low suspicion for malignancy however the patient requested stereotactic biopsy. Subsequent path revealed mucinous carcinoma, grade 2, ER/KY positive, HER2 negative, Ki-67 low. After discussion with Medical and Radiation Oncology the decision was made to proceed to a left breast lumpectomy with sentinel node biopsy performed on 03/12/2025. She tolerated the procedure well and the pathology revealed microscopic focus of residual invasive mucinous carcinoma, grade 2, 4 mm. Resected margins were widely negative (greater than 5 mm). 0 of 2 sentinel lymph nodes had metastatic disease. AJCC stage pT1b N0 (sn)(-i). She has some soreness at the site of incision and noted redness in the incision initially which is improving. [facility] Medical History Post-operative nausea and vomiting PVCs (premature ventricular contractions) Hx of skin cancer, basal cell (~10/19/22) Basal cell carcinoma (BCC) in situ of skin (~10/19/22) History of fracture of arm Hx of fracture of femur Osteoporosis Hypothyroidism Breast cancer, left Surgical History H/O colonoscopy History of excision of lesion (10/2022) History of hip replacement History of Mohs surgery for squamous cell carcinoma of skin (03/2021) Hx of rotator cuff surgery History of left knee surgery History of lumpectomy of left breast History of total replacement of right shoulder joint Family History Maternal Grandmother Diabetes Father HTN (hypertension) Stroke Mother Pulmonary fibrosis HTN (hypertension) Sister HTN (hypertension) Family/Other Acute Crohn's disease Paternal Uncle Stomach cancer Social History Household Members: None Housing: Apartment Are you a primary foster care case manager to a significant other at home: No Do you presently have visiting nurse or other home services: No Alcohol intake: former Patient Tobacco Use Status: Never used Tobacco Second Hand Smoke Exposure: No service: No Current occupational status: employed Review of Systems Const All systems reviewed & are unremarkable except as noted in HPI and below Physical Exam Vital Signs: Last Vital Signs Pulse 115 H 03/23/25 09:32 BP 129/60 03/23/25 09:32 Const General: no acute distress Nutritional Appearance: well nourished Orientation/consciousness: patient oriented x3 Limitations: no limitations Chest Other: Well-healed incision in the upper outer quadrant and axilla without evidence of hematoma or seroma. No erythema or fluctuance appreciated. Chest/axillae images:  1. 2. Resp Effort & Inspection: normal respiratory effort Skin Other: Warm, dry, no rash Neuro General: patient oriented x3 Extrem Other: No edema Assessment & Plan Assessment & Plan (1) Breast cancer, left: Code(s): C50.912 - Malignant neoplasm of unspecified site of left female breast Category: Medical Qualifiers: Breast location: upper outer quadrant of breast Estrogen receptor status: positive Patient sex: female Qualified Code(s): C50.412 - Malignant neoplasm of upper-outer quadrant of left female breast; Z17.0 - Estrogen receptor positive status [ER+] (2) Mucinous carcinoma of left breast: Code(s): C50.912 - Malignant neoplasm of unspecified site of left female breast Category: Medical Plan 69-year-old female patient with a prior history of left breast carcinoma now returning with a new left breast mucinous carcinoma in the upper outer quadrant, s/p left breast lumpectomy with localizer and left axillary sentinel node biopsy. Pathology revealed an approximately 6 mm tumor in total, ER/KY positive, HER2 Niko low and low proliferation index. She was previously evaluated by Dr. Scanlon and we will set up an appointment for follow-up evaluation. I have asked her to return in approximately 1 month, sooner PRN. Coding Level of Care Code Global (19638) Diagnoses Malignant neoplasm of upper-outer quadrant of left breast in female, estrogen receptor positive C50.412; Z17.0 Breast location: upper outer quadrant of breast Estrogen receptor status: positive Patient sex: female Mucinous carcinoma of left breast C50.912
--- OUTSIDE RECORDS SUMMARY | 2025-03-23 10:34 | XMS_ITS | Encounter Summary ---
Author Organization [facility] Address [address] [place] [id number] Phone Care Team Providers Care Recording Studio Set Up Worker Name Role Phone Bull Fajardo MD Primary Care Provider [phone] Radha Zurita MD Primary Care Provid er Michelle Fitzgerald MD Primary Care Provider + [phone] Reason for Referral * - Closed Specialty Diagnoses / Procedures Referred By Contac t Referred To Contact Procedures NM Other Outside (No Interpretation) System, Provider Not In, PhD [facility] [address] [address] Referral ID Status Reason Start Date Expiration Date Visits Re quested Visits Authorized [id number] Closed 06/28/2018 06/28/2019 1 1 Encounter Details Date Type Department Care Team (Late st Contact Info) Description 06/28/2018 Ancillary Orders [facility],Outside Imaging [address] [place] [address] System, Provider Not In, PhD [facility] [employer] [address] [place] [id number] Social History Tobacco Use Types Packs/Day Years [...] AM EDT Office Visit [facility] [address] [place] [id number] Jose Yuen DO [address] [place] [address] [email or web address] documented as of this encounter Results * [...] documented as of this encounter Care Teams Recording Studio Set Up Worker Relationship Specialty Start Date End Date Bull Fajardo MD [address] [place] [address] [address] [place] [address] [email or web address] PCP - General 05/24/1711/30 Radha Zurita MD [address] [place] [address] [address] [place] [address] [email or web address] PCP - General Family Medicine 12/01/21 1 07/18/21 Michelle Fitzgerald MD [address] [place] [id number] [email or web address] PCP - General Family Medicine 05/18/22 documented as of this encounter Additional Source Comments The information contained in this document represents components of the legal health record. It is not the complete legal health record.[facility]
--- OUTSIDE RECORDS SUMMARY | 2025-03-23 10:34 | XMS_ITS | Patient Health Record ---
Author Organization [facility] Address [address] [place] [address] Care Team Providers Care Motel Keeper Name Role Phone ANNEL SIMS M.D. Primary Care Provider Elen Troy Lindsay [phone] Allergies Allergen (clinical drug ingredient) Drug/Non Drug [...] Problem Screening for malignant neoplasm of colon (109051825) Encounter for screening for malignant neoplasm of colon (Z12.11) Active confirmed Problem Pre-procedure evaluation check (072737651) Pre-procedural examination (Z01.818) Active confirmed Problem Irritable bowel syndrome (07226527) Irritable bowel syndrome, unspecified type (K58.9) Active confirmed Problem Diverticular disease of colon (739826837) Diverticulosis large intestine w/o perforation or abscess w/o bleeding (K57.30) Active confirmed Plan Of Treatment Future Test Test Name Order Date COLONOSCOPY 03/19/2018 COLONOSCOPY 01/18/2023 Insurance Providers Payer Name Payer Address Payer Phone Subscriber Number Group Number Insured Name Patient Relationship to Insured Coverage Start Date Coverage End Date [facility] [address] [place], [place] [phone] [id number] SOM PALOMARES Self - patient is the insured Medical (General) History Medical History History ICD Code Iron def anemia---10/2004--Ne g EGD with normal duodenal biopsies and Colonoscopy Panic attacks Hypothyroidism PVC'S---sees a service desk technician in [facility] on, Dr. Fermin Denies [place],DM,CVA,Lung disease,renal dise ase Surgical History Surgery Date(Month/Year) Knee surgery Shoulder surgery--right shoulder replace ment in 2007 Pilonidal cyst Broken femur Rotator cuff Left lumpectomy for breast cancer with X RT 2018 Eye surgery and cataract surgery Broken left hip 09/2021
--- OUTSIDE RECORDS SUMMARY | 2025-03-23 10:34 | XMS_ITS | Encounter Summary ---
Author Organization [facility] Address [address] [place] [address] Phone Care Team Providers Care Rail Switchman Name Role Phone Bull Fajardo MD Primary Care Provider +- [phone] Radha Zurita MD Primary Care Provid er Michelle Fitzgerald MD Primary Care Provider [phone] Encounter Details Date Type Department Care Team (Late Contact Info) Description 06/28/2018 Ancillary Orders [facility],Outside Imaging [address] [place], [place] [id number] System, Provider [place] In, [place] [address] Social History Tobacco Use Types Packs/Day Years [...] 8:50 AM EDT Office Visit [facility] [address] [place] [address] Jose Yuen DO [address] [place] [address] [email or web address] documented as of this encounter Results * [...] documented as of this encounter Care Teams Rail Switchman Relationship Specialty Start Date End Date Bull Fajardo MD [address] [place] [address] [email or web address] PCP - General 05/24/1711/30 Radha Zurita MD [address] [place] [address] [email or web address] PCP - General Family Medicine 12/01/21 1 07/18/21 Michelle Fitzgerald MD [address] [place] [address] [email or web address] PCP - General Family Medicine 05/18/22 documented as of this encounter Additional Source Comments The information contained in this document represents components of the legal health record. It is not the complete legal health record.[facility]
--- OUTSIDE RECORDS SUMMARY | 2025-03-23 10:34 | XMS_ITS | Encounter Summary ---
Author Organization [facility] Address [address] [place] [address] Phone Care Team Providers Care Shingler Name Role Phone Bull Fajardo MD Primary Care Provider +- [phone] Radha Zurita MD Primary Care Provid er Michelle Fitzgerald MD Primary Care Provider [phone] Encounter Details Date Type Department Care Team (Late Contact Info) Description 06/28/2018 Ancillary Orders [facility],Outside Imaging [address] [place], [place] [phone] System, Provider Not In, [place] [address] Social History Tobacco Use Types Packs/Day Years [...] 8:50 AM EDT Office Visit [facility] [address] [place] [address] Jose Yuen DO [address] [place] [address] [email or web address] documented as of this encounter Results * [...] documented as of this encounter Care Teams Shingler Relationship Specialty Start Date End Date Bull Fajardo MD [address] [place] [address] [email or web address] PCP - General 05/24/1711/30 Radha Zurita MD [address] [place] [phone] [email or web address] PCP - General Family Medicine 12/01/21 1 07/18/21 Michelle Fitzgerald MD [address] [place] [address] [email or web address] PCP - General Family Medicine 05/18/22 documented as of this encounter Additional Source Comments The information contained in this document represents components of the legal health record. It is not the complete legal health record.[facility]
--- OUTSIDE RECORDS SUMMARY | 2025-03-23 10:34 | XMS_ITS | Clinical Summary ---
Author Organization [facility] Address [address] [place] [address] Phone Care Team Providers Care Block Cuber Name Role Phone Michelle Fitzgerald MD Primary Care Provider + [phone] Allergies Active Allergy Reactions Criticality Noted Date [...] (02/28/2024 12:46 PM EDT): The patient sees wood setter/oncologist Dr. Scanlon for breast cancer. I asked [...] carcinoma left breast, MSBR grade 1, ER+, [place]-, HER2-; lumpectomy + sentinel lymph node biopsy [...] Osteoporosis Overview (05/19/2021): Last DXA 11/05/20 at [facility] Assessment & Plan (01/28/2025 9:27 AM [...] 11/06/2022 that has to be done at [facility]. Assessment & Plan (09/20/2021 9:46 AM [...] Prolia which is a rank ligand antagonist. Xptp-pk-kktj studies have shown the Prolia works better [...] AM EDT Office Visit [facility] [address] [place] [address] Jose Yuen, Other osteoporosis without current pathological [...] 8:50 AM EDT Office Visit [facility] [address] [place] [address] Jose Yuen DO [address] [place] [address] [email or web address] Maintenance Due Date Last Done Comments [...] this topic Medical Devices Implanted Type Area Travel Attendants Device Identifier Shelf Expiration Date Model / Serial / Lot Quik-Use Femoral Bone Cement Prep Kid With Thomas Medullary Cement Plugs Implanted:Qty: 1 on 09/21/2021 by Bull Velázquez MD at [facility] Left: Hip OPAL 02/25/2026 [id number] / / [id number] Description:quik-use femoral bone cement prep kit with thomas medullary cement plugs: (1) Cement plug implanted Cement Bone 1x40 Standard - [id number] Implanted:Qty: 2 on 09/21/2021 by Bull Velázquez MD at [facility] Left: Hip OPAL / DIV OF [employer] 01/19/2024 [id number] / / [id number] Versys Hip System Distal Hip Centralizer Implanted:Qty: 1 on 09/21/2021 by Bull Velázquez MD at [facility] Left: Hip OPAL 09/06/2030 [id number] / / [id number] Hip Stem 11mm Femoral Echo Fx [place] [employer] - [id number] Implanted:Qty: 1 on 09/21/2021 by Bull Velázquez MD at [facility] Left: Hip [employer] 07/01/2031 [id number] / / [id number] Acetabular Shell 45mm Endo Ii Titanium Alloy Unipolar - [id number] Implanted:Qty: 1 on 09/21/2021 by Bull Velázquez MD at [facility] Left: Hip [employer] 12/10/2030 [id number] / / [id number] Hip Insert 6mm Femoral Bio [place] Ii Endo Titanium Alloy Taper Minus - [id number] Implanted:Qty: 1 on 09/21/2021 by Bull Velázquez MD at [facility] Left: Hip [employer] 12/14/2030 [id number] / / [id number] Procedures Procedure Name Priority Date/Time Associated Diagnosis Comments BD DXA MONITORING Routine 01/28/2025 9:2 8 AM EDT Other osteoporosis without current pathological fracture HM COLONOSCOPY FOR RESULT ENTRY ONLY Routine 09/24/2023 12:24 PM EDT THYROID STIMULATING HORMONE (TSH) Routine 09/12/2021 3:10 PM EDT Blanquita's thyroiditis [...] EDT) TSH 3.60 0.27 - 4.20 uIU/mL [facility] Blood 09/12/2021 3:10 PM EDT 09/12/2021 3:17 PM EDT Bull Fajardo MD LAB BLOOD BKR ORDERABLES F inal Result [facility] [address] [place] [address] * (ABNORMAL) Lipid panel (05/12/2021 3:07 PM EST) HDL 96 mg/dL [facility] Comment: Interpretation <40 mg/dL: Low HDL cholesterol (major risk factor for CHD) Greater than or equal to 60 mg/dL: High HDL cholesterol ( negative risk factor for CHD) HDL - cholesterol is affected by a number of factors, e.g. smoking, excerise, hormones, sex and age. CHOLESTEROL 286(H) 0 - 240 mg/dL [facility] TRIGLYCERIDES 129 30 - 160 mg/dL [facility] LDL 164(H) 50 - 129 mg/dL [facility] Comment: LDL levels in terms of risk for coronary heart disease: <100 mg/dL: Optimal 100-129 mg/dL: Near or above optimal 130-159 mg/dL: Borderline high 160-189 mg/dL: High >190 mg/dL: Very High CARDIAC RISK RATIO 3.0(L) 3.3 - 4.4 C [facility] Blood 05/12/2021 3:07 PM EST 05/12/2021 3:10 PM EST Bull Fajardo MD LAB BLOOD BKR ORDERABLES F inal Result Performing Organization Address City/[facility]/ZIP Co de Phone Number [address] [address] * MAMMOGRAPHY FOR RESULT ENTRY ONLY (05/25/2020) Flor Provider HEALTH MAINTENANCE Edited Result - Final * Hepatitis C antibody, qualitative (01/19/2020 8:04 AM EDT) HCV NON-REACTIV E NON-REACTI VE [facility] Blood 01/19/2020 8:04 AM EDT 01/19/2020 8:27 AM EDT Bull Fajardo MD LAB BLOOD BKR ORDERABLES F inal Result Performing Organization Address City/[facility]/ZIP Co de Phone Number [address] [address] from Last 3 Months or Most Recently Relevant to Health Maintenance Insurance MEDICARE PART A & B MEDICARE PPO BLUE REPLACEMENT MEDICARE PART A & B MEDICARE PPO BLUE REPLACEMENT MEDICARE PART A & B MEDICARE PART A & B MEDICARE PART A & B Member Subscriber Plan / Payer (Ef fective 2019-Present) Name:Lilian Tamayo Member ID:[id number] Relation to Subscriber:Self Name:Lilian Tamayo Subscriber ID:[id number] Payer ID:[id number] Group ID:Not on file Type:Medicare Address: [employer] [address] [place] [phone] [place] P[place] BLUE REPLACEMENT MEDICARE PART A & B MEDICARE PART A & B Member Subscriber Plan / Payer ( fective 2019-Present) Name:Lilian Tamayo Member ID:[id number] Relation to Subscriber:Self Name:Lilian Tamayo Subscriber ID:[id number] Payer ID:[id number] Group ID:Not on file Type:Medicare Address: [employer] [address] [place] [address] [place] [address] MEDICARE PPO BLUE REPLACEMENT MEDICARE PART A & B Member Subscriber Plan / Payer ( fective 2019-Present) Name:Lilian Tamayo Member ID:[id number] Relation to Subscriber:Self Name:Lilian Tamayo Subscriber ID:[id number] Payer ID:[id number] Group ID:Not on file Type:Medicare Address: [employer] [address] [place] [address] [place] [address] MEDICARE PPO BLUE REPLACEMENT MEDICARE PART A & B [place] BLUE REPLACEMENT Advance Directives For more information, please contact: [phone] (9AM - 5PM [facility], Sunday-Sunday) Documents on File Type Date Recorded Patient Roll Winder Expl anation Healthcare Proxy 07/24/2018 * Full Code (Latest Code Status on File) Date Activated Date Inactivated Comments 09/21/2021 4:47 AM Question Answer Comments Code Status Confirmed With: Patient Code Status Communicated To: Inpatient Attending Care Teams Block Cuber Relationship Specialty Start Date End Date Michelle Fitzgerald MD PCP - General Family Medicine 05/18/22 Additional Source Comments The information contained in this document represents components of the legal health record. It is not the complete legal health record.[facility]
--- OUTSIDE RECORDS SUMMARY | 2025-03-23 10:34 | XMS_ITS | Encounter Summary ---
Author Organization [facility] Address [address] [place] [address] Phone Care Team Providers Care Director Of Audiology Name Role Phone Bull Fajardo MD Primary Care Provider +- [phone] Radha Zurita MD Primary Care Provid er Michelle Fitzgerald MD Primary Care Provider [phone] Encounter Details Date Type Department Care Team (Late Contact Info) Description 06/28/2018 Ancillary Orders [facility],Outside Imaging [address] [place], [place] [id number] System, Provider Not In, [place] [address] Social History Tobacco Use Types Packs/Day Years [...] 8:50 AM EDT Office Visit [facility] [address] [place] [address] Jose Yuen DO [address] [place] [address] documented as of this encounter Results * [...] documented as of this encounter Care Teams Director Of Audiology Relationship Specialty Start Date End Date Bull Fajardo MD [address] [place] [phone] [email or web address] PCP - General 05/24/1711/30 Radha Zurita MD [address] [place] [address] [email or web address] PCP - General Family Medicine 12/01/21 1 07/18/21 Michelle Fitzgerald MD [address] [place] [address] [email or web address] PCP - General Family Medicine 05/18/22 documented as of this encounter Additional Source Comments The information contained in this document represents components of the legal health record. It is not the complete legal health record.[facility]
--- OUTSIDE RECORDS SUMMARY | 2025-03-23 10:34 | XMS_ITS | Encounter Summary ---
Author Organization [facility] Address [address] [place] [address] Phone Care Team Providers Care Securities And Real Estate Director Name Role Phone Bull Fajardo MD Primary Care Provider +- [phone] Radha Zurita MD Primary Care Provid er Michelle Fitzgerald MD Primary Care Provider [phone] Encounter Details Date Type Department Care Team (Late Contact Info) Description 06/28/2018 Ancillary Orders [facility],Outside Imaging [address] [place], [place] [id number] System, Provider Not In, [place] [address] Social History Tobacco Use Types Packs/Day Years [...] 8:50 AM EDT Office Visit [facility] [address] [place] [address] Jose Yuen DO [address] [place] [address] documented as of this encounter Results * [...] documented as of this encounter Care Teams Securities And Real Estate Director Relationship Specialty Start Date End Date Bull Fajardo MD [address] [place] [phone] [email or web address] PCP - General 05/24/1711/30 Radha Zurita MD [address] [place] [address] [email or web address] PCP - General Family Medicine 12/01/21 1 07/18/21 Michelle Fitzgerald MD [address] [place] [address] [email or web address] PCP - General Family Medicine 05/18/22 documented as of this encounter Additional Source Comments The information contained in this document represents components of the legal health record. It is not the complete legal health record.[facility]
--- OUTSIDE RECORDS SUMMARY | 2025-03-23 10:34 | XMS_ITS | Encounter Summary ---
Author Organization [facility] Address [address] [place] [address] Phone Care Team Providers Care Pipe Line Gauger Name Role Phone Bull Fajardo MD Primary Care Provider +- [phone] Radha Zurita MD Primary Care Provid er Michelle Fitzgerald MD Primary Care Provider [phone] Encounter Details Date Type Department Care Team (Late st Contact Info) Description 04/26/2018 Ancillary Orders [facility] Internal Medicine [address] [place] [address] Bull Fajardo MD [address] [place] [address] [email or web address] in both hands Social History Tobacco [...] AM EDT Office Visit [facility] [address] [place] [address] Jose Yuen, [address] [place] [phone] [email or web address] documented as of this encounter Results * [...] documented as of this encounter Care Teams Pipe Line Gauger Relationship Specialty Start Date End Date Bull Fajardo MD [address] [place] [phone] [email or web address] PCP - General 05/24/1711/30 Radha Zurita MD [address] [place] [phone] [email or web address] PCP - General Family Medicine 12/01/21 1 07/18/21 Michelle Fitzgerald MD [address] [place] [phone] (work) [email or web address] PCP - General Family Medicine 05/18/22 documented as of this encounter Additional Source Comments The information contained in this document represents components of the legal health record. It is not the complete legal health record.[facility]
--- OUTSIDE RECORDS SUMMARY | 2025-03-23 10:34 | XMS_ITS | Encounter Summary ---
Author Organization [facility] Address [address] [place] [address] [place] [address] Phone Care Team Providers Care Legal Manager Name Role Phone Bull Fajardo MD Primary Care Provider [phone] Radha Zurita MD Primary Care Provid er Michelle Fitzgerald MD Primary Care Provider [phone] Encounter Details Date Type Department Care Team (Late st Contact Info) Description 09/21/2021 Procedure Pass OR Admitting Dept - Virtual Department [address] [place], [place] [address] Social History Tobacco Use Types Packs/Day Years [...] high school, GED, job training, learning the [place] language, technical skills, or developing parenting skills)? [...] 8:50 AM EDT Office Visit [facility] [address] [place] [address] Jose Yuen DO [address] [place] [phone] [email or web address] documented as of this encounter Visit Diagnoses [...] documented as of this encounter Care Teams Legal Manager Relationship Specialty Start Date End Date Bull Fajardo MD [address] [place] [address] [address] [place] [address] [email or web address] PCP - General 05/24/1711/30 Radha Zurita MD 22 [facility] [address] [place] [address] [email or web address] PCP - General Family Medicine 12/01/21 1 07/18/21 Michelle Fitzgerald MD [address] [place] [address] [email or web address] PCP - General Family Medicine 05/18/22 documented as of this encounter Additional Source Comments The information contained in this document represents components of the legal health record. It is not the complete legal health record.[facility]
== END 2025-03-23 09:43 | disposition home or self-care (01) ==
LOC: HO.HGS 09:24
PROVIDERS: PCP Family Medicine; Visit Provider Surgery
DX: C50.412 Malignant neoplasm of upper-outer quadrant of left female breast (principal); Z17.0 Estrogen receptor positive status [ER+]; C50.912 Malignant neoplasm of unspecified site of left female breast
CPT/HCPCS: 99024

== ENCOUNTER → 2025-03-23 09:24 | Outpatient (BNVA) | payer MEDICARE, SELFPAY | PROVIDERS: PCP Family Medicine; Visit Provider Surgery | DX: C50.412 Malignant neoplasm of upper-outer quadrant of left female breast (principal); C50.912 Malignant neoplasm of unspecified site of left female breast; Z17.0 Estrogen receptor positive status [ER+]; Z17.21 Progesterone receptor positive status; Z17.32 Human epidermal growth factor receptor 2 negative status | CPT/HCPCS: 99212 ==

== ENCOUNTER 2025-04-21 10:10 | Outpatient (AMB) | payer MEDICARE, SELFPAY ==
--- NOTE | 2025-04-21 10:15 | A.OFFVIS_ITS ---
Vital Signs 04/21/25 10:22 Height 5 ft 6 in Weight 149 lb 14.629 oz BMI 24.2 BP 134/63 Blood Pressure Location Lt brachial Position Sitting Pulse 73 Intake Visit Reasons: 1mth follow up lft breast lumpectomy Intake Note: Patient is seen in office for one month follow up visit, breast exam. Pt c/o: seen by Dr Scanlon and was referred to a radiation oncologist at [facility] has an appt for 05/01/25 to see what the next steps will be Dr Scanlon:04/06/25 Gas Appliance Servicer Required: No Data Processing Specialist: Data Processing Specialist Present Accompanied by: Self / Same As Patient Allergies adhesive tape (ADHESIVE TAPE) Allergy (Intermediate, Verified 04/21/25 10:22) BLISTERS naproxen (Aleve) Allergy (Intermediate, Verified 04/21/25 10:22) diarrhea Sulfa (Sulfonamide Antibiotics) Allergy (Intermediate, Verified 04/21/25 10:22) RASH Medication List - Last Reconciled 04/21/25 by Jose Mazariegos MD calcium carbonate (Calcium 500) 500 mg PO DAILY cholecalciferol (vitamin D3) 25 mcg PO BID obumguwdtfih-lkmchfaqevi-pnkol 1,000-200 mcg 1 tab PO DAILY levothyroxine 100 mcg PO DAILY ondansetron HCl 4 mg PO Q6H sertraline 100 mg PO DAILY HPI Comments Details: 70-year-old female patient, former patient of Dr. 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 A screening mammogram performed on 06/13/2024 revealed a left breast asymmetry in the lateral breast posterior depth seen on CC view and confirmed on additional imaging on 06/27/2024. No ultrasound correlate could be identified. This was felt to be low suspicion for malignancy however the patient requested stereotactic biopsy. Subsequent path revealed mucinous carcinoma, grade 2, ER/MI positive, HER2 negative, Ki-67 low. After discussion with Medical and Radiation Oncology the decision was made to proceed to a left breast lumpectomy with sentinel node biopsy performed on 03/12/2025. She tolerated the procedure well and the pathology revealed microscopic focus of residual invasive mucinous carcinoma, grade 2, 4 mm. Resected margins were widely negative (greater than 5 mm). 0 of 2 sentinel lymph nodes had metastatic disease. AJCC stage pT1b N0 (sn)(-i). Today she notes some swelling in the axillary incision and in the left breast. [facility] Medical History Post-operative nausea and vomiting PVCs (premature ventricular contractions) Hx of skin cancer, basal cell (~10/19/22) Basal cell carcinoma (BCC) in situ of skin (~10/19/22) History of fracture of arm Hx of fracture of femur Osteoporosis Hypothyroidism Breast cancer, left Surgical History H/O colonoscopy History of excision of lesion (10/2022) History of hip replacement History of Mohs surgery for squamous cell carcinoma of skin (03/2021) Hx of rotator cuff surgery History of left knee surgery History of lumpectomy of left breast History of total replacement of right shoulder joint Family History Maternal Grandmother Diabetes Father HTN (hypertension) Stroke Mother Pulmonary fibrosis HTN (hypertension) Sister HTN (hypertension) Family/Other Acute Crohn's disease Paternal Uncle Stomach cancer Social History Household Members: None Housing: Apartment Are you a primary manager respiratory care to a significant other at home: No Do you presently have visiting nurse or other home services: No Alcohol intake: former Patient Tobacco Use Status: Never used Tobacco Second Hand Smoke Exposure: No service: No Current occupational status: employed Review of Systems Const All systems reviewed & are unremarkable except as noted in HPI and below Physical Exam Const General: no acute distress Nutritional Appearance: well nourished Orientation/consciousness: patient oriented x3 Limitations: no limitations Chest Other: Well-healed incision in the upper outer quadrant and axilla without evidence of hematoma or seroma. There is diffuse swelling of the left breast with no definite hematoma or seroma. Axillary incision is clean with a normal healing ridge and no evidence of recurrent disease. Resp Effort & Inspection: normal respiratory effort Skin Other: Warm, dry, no rash Neuro General: patient oriented x3 Extrem Other: No edema Assessment & Plan Assessment & Plan (1) Breast cancer, left: Code(s): C50.912 - Malignant neoplasm of unspecified site of left female breast Category: Medical Qualifiers: Breast location: upper outer quadrant of breast Estrogen receptor status: positive Patient sex: female Qualified Code(s): C50.412 - Malignant neoplasm of upper-outer quadrant of left female breast; Z17.0 - Estrogen receptor positive status [ER+] (2) Mucinous carcinoma of left breast: Code(s): C50.912 - Malignant neoplasm of unspecified site of left female breast Category: Medical Plan 70-year-old female patient with a prior history of left breast carcinoma now returning with a new left breast mucinous carcinoma in the upper outer quadrant, s/p left breast lumpectomy with localizer and left axillary sentinel node biopsy. Pathology revealed an approximately 6 mm tumor in total, ER/MI positive, HER2 Niko low and low proliferation index. She was previously ev aluated by Dr. Scanlon and we will set up an appointment for follow-up evaluation. Examination today reveals a well-healed upper outer quadrant incision and axillary incision. There was no evidence of recurrent disease. She does have diffuse swelling of the left breast consistent with postoperative changes. She reports that she will be evaluated radiation oncology next week. She will continue to follow up with Dr. Scanlon as well. I have asked her to return in 3 months for routine breast examination. Coding Level of Care Code Global (80643) Diagnoses Malignant neoplasm of upper-outer quadrant of left breast in female, estrogen receptor positive C50.412; Z17.0 Breast location: upper outer quadrant of breast Estrogen receptor status: positive Patient sex: female Mucinous carcinoma of left breast C50.912
[2025-04-21 10:22] VITALS: BP 134/63; PULSE 73; BMI 24.2
--- OUTSIDE RECORDS SUMMARY | 2025-04-21 11:37 | XMS_ITS | Encounter Summary ---
Author Organization [facility] Address [address] [place] [address] [place] [address] Phone Care Team Providers Care Kosher Dietary Service Manager Name Role Phone Bull Fajardo MD Primary Care Provider +- [phone] Radha Zurita MD Primary Care Provid er Michelle Fitzgerald MD Primary Care Provider [phone] Encounter Details Date Type Department Care Team (Late Contact Info) Description 06/28/2018 Ancillary Orders [facility],Outside Imaging [address] [place], [place] [id number] System, Provider [place] In, [place] [address] Social History Tobacco Use Types Packs/Day Years [...] Department Care Team (Late Contact Info) Description 05/01/2025 9:00 AM EST Office Visit [facility] At [facility] Rad Onc [address] [place], [place] [phone] Grace Santana MD 30 [place] [address] [email or web address] 01/28/2026 8:50 AM EDT Office Visit [facility] 22 [place] [address] Jose Yuen DO 22 [place] [address] [email or web address] documented as of this encounter Results * [...] documented as of this encounter Care Teams Kosher Dietary Service Manager Relationship Specialty Start Date End Date Bull Fajardo MD [address] [place] [address] [email or web address] PCP - General 05/24/1711/30 Radha Zurita MD [address] [address] PCP - General Family Medicine 12/01/21 1 07/18/21 Michelle Fitzgerald MD [address] [place] [address] [email or web address] PCP - General Family Medicine 05/18/22 documented as of this encounter Additional Source Comments The information contained in this document represents components of the legal health record. It is not the complete legal health record.[facility]
--- OUTSIDE RECORDS SUMMARY | 2025-04-21 11:37 | XMS_ITS | Encounter Summary ---
Author Organization [facility] Address [address] [place] [address] Phone Care Team Providers Care Vmware Systems Administrator Name Role Phone Bull Fajardo MD Primary Care Provider +- [phone] Radha Zurita MD Primary Care Provid er Michelle Fitzgerald MD Primary Care Provider [phone] Encounter Details Date Type Department Care Team (Late st Contact Info) Description 04/26/2018 Ancillary Orders [facility] Internal Medicine [address] [place] [address] Bull Fajardo MD [address] [place] [address] [email or web address] Pain in both hands Social History Tobacco [...] Care Team (Late st Contact Info) Description 05/01/2025 9:00 AM EST Office Visit [facility] Rad Onc [address] [place] [address] Grace Santana MD 30 [place] [address] [email or web address] 01/28/2026 8:50 AM EDT Office Visit [facility] [address] [place] [address] Jose Yuen DO 22 [place] [address] [email or web address] documented as of this encounter Results * [...] documented as of this encounter Care Teams Vmware Systems Administrator Relationship Specialty Start Date End Date Bull Fajardo MD [address] [place] [address] PCP - General 05/24/1711/30 Radha Zurita MD [address] [place] [address] [email or web address] PCP - General Family Medicine 12/01/21 1 07/18/21 Michelle Fitzgerald MD [address] [place] [address] [email or web address] PCP - General Family Medicine 05/18/22 documented as of this encounter Additional Source Comments The information contained in this document represents components of the legal health record. It is not the complete legal health record.[facility]
--- OUTSIDE RECORDS SUMMARY | 2025-04-21 11:37 | XMS_ITS | Encounter Summary ---
Author Organization [facility] Address [address] [place] [address] [place] [address] Phone Care Team Providers Care Aircraft Body Repairer Name Role Phone Bull Fajardo MD Primary Care Provider +- [phone] Radha Zurita MD Primary Care Provid er Michelle Fitzgerald MD Primary Care Provider [phone] Encounter Details Date Type Department Care Team (Late Contact Info) Description 06/28/2018 Ancillary Orders [facility],Outside Imaging [address] [place], [place] [phone] System, Provider Not In, [place] [address] Social History Tobacco Use Types Packs/Day Years [...] Description 05/01/2025 9:00 AM EST Office [place] [facility] Rad Onc [address] [place], [place] [phone] Grace Santana MD 30 [place] [address] [email or web address] 01/28/2026 8:50 AM EDT Office Visit [facility] 22 [place] [address] Jose Yuen DO 22 [place] [address] [email or web address] documented as of this encounter Results * [...] documented as of this encounter Care Teams Aircraft Body Repairer Relationship Specialty Start Date End Date Bull Fajardo MD [address] [place] [address] [email or web address] PCP - General 05/24/1711/30 Radha Zruita MD [address] [address] [email or web address] PCP - General Family Medicine 12/01/21 1 07/18/21 Michelle Fitzgerald MD [address] [place] [address] [email or web address] PCP - General Family Medicine 05/18/22 documented as of this encounter Additional Source Comments The information contained in this document represents components of the legal health record. It is not the complete legal health record.[facility]
--- OUTSIDE RECORDS SUMMARY | 2025-04-21 11:37 | XMS_ITS | Clinical Summary ---
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 Scanlon for breast cancer. I asked [...] carcinoma left breast, MSBR grade 1, ER+, VT-, HER2-; lumpectomy + sentinel lymph node biopsy [...] Osteoporosis Overview (05/19/2021): Last DXA 11/05/20 at [facility] Assessment & Plan (01/28/2025 9:27 AM [...] 11/06/2022 that has to be done at [facility]. Assessment & Plan (09/20/2021 9:46 AM [...] Prolia which is a rank ligand antagonist. [id number] studies have shown the Prolia works better [...] Encounters Date Type Department Care Team Description 04/13/2025 Ancillary Orders [facility],Outside Imaging [address] [place] [address] [address], [address] 04/13/2025 Ancillary Orders [facility],Outside Imaging [address] [place] [address] [address] [address] Sultana MD 04/13/2025 Ancillary Orders [facility],Outside Imaging [address] [place] [address] Rd Sultana MD 04/13/2025 Ancillary Orders [facility],Outside Imaging [address] [place] [address] Rd Sultana MD 04/13/2025 Ancillary Orders [facility],Outside Imaging [address] [place] [address] Rd Sultana MD 04/07/2025 Telephone [facility] [address] [place] [address] [place] [address] Jose Yuen DO Requested Call Back 03/12/2025 12:05 AM EDT - 03/12/2025 11:59 PM EDT Hospital Encounter [facility],Outside Imaging [address] [place] [address] Rd, MD Rd Discharge Disposition: Home or Self Care 03/12/2025 - 03/12/2025 12:04 AM EDT Hospital Encounter [facility],Outside Imaging [address] [place] [address] Unknown, MD Rd Discharge Disposition: Home or Self Care 03/04/2025 - 03/04/2025 11:59 PM EDT [facility] [place] [address] Unknown, Unknown, MD Discharge Disposition: Home or Self Care 01/29/2025 - 01/29/2025 11:59 PM EDT Hospital Encounter [facility],Outside Imaging [address] [place] [address] Unknown, Unknown, MD Discharge Disposition: Home or Self Care 01/28/2025 8:50 AM EDT Office Visit [facility] [address] [place] [address] Jose Yuen DO Other osteoporosis without current [...] enough money to get more. Never True Paying for Meds Answer Date Recorded Do [...] Description 05/01/2025 9:00 AM EST Office Visit [facility] Rad Onc [address] [place] [address] Grace Santana MD 30 [place] [address] [email or web address] 01/28/2026 8:50 AM EDT Office Visit [facility] 22 [place] [address] Jose Yuen DO 22 [place] [address] [email or web address] Health Maintenance Due Date Last Done Comments COLOGUARD 1999 FIT TEST 1999 FOBT 1999 SIGMOIDOSCOPY 1999 VIRTUAL COLONOSCOPY 1999 ZOSTER VACCINES (1 of 2) 07/12/2016 05/17/2016 DEPRESSION SCREENING 05/12/2022 05/12/2021 TSH LEVEL 09/12/2022 09/12/2021, 04/21, 01/19/2020, Additional history exists INFLUENZA VACCINE (#1) 2024 , 02/20/2022, 02/25/2021, Additional history exists COVID-19 VACCINE ( season) 2025 12/14/2023, 02/23/2023, 03/11/2022, Additional history exists LIPID PANEL 05/12/2026 05/12/2021, 12/21, 04/26/2018 MAMMOGRAM 03/04/2027 03/04/2025, 01/19, 12/23/2024, Additional history exists Adult Td,Tdap Booster 11/02/2032 11/02/2022, 013 COLONOSCOPY [...] this topic Medical Devices Implanted Type Area Devulcanizer Tender Device Identifier Shelf Expiration Date Model / Serial / Lot Quik-Use Femoral Bone Cement Prep Kid With Thomas Medullary Cement Plugs Implanted:Qty: 1 on 09/21/2021 by Bull Velázquez MD at [facility] Left: Hip OPAL 02/25/2026 [id number] / / [id number] Description:quik-use femoral bone cement prep kit with thomas medullary cement plugs: (1) Cement plug implanted Cement Bone 1x40 Standard - [id number] Implanted:Qty: 2 on 09/21/2021 by Bull Velázquez MD at [facility] Left: Hip OPAL / DIV OF [employer] 01/19/2024 [id number] / / [id number] Versys Hip System Distal Hip Centralizer Implanted:Qty: 1 on 09/21/2021 by Bull Velázquez MD at [facility] Left: Hip OPAL 09/06/2030 [id number] / / [id number] Hip Stem 11mm Femoral Echo Fx Edwards Chromium - [id number] Implanted:Qty: 1 on 09/21/2021 by Bull Velázquez MD at [facility] Left: Hip [employer] 07/01/2031 [id number] / / [id number] Acetabular Shell 45mm Endo Ii Titanium Alloy Unipolar - [id number] Implanted:Qty: 1 on 09/21/2021 by Bull Velázquez MD at [facility] Left: Hip [employer] 12/10/2030 [id number] / / [id number] Hip Insert 6mm Femoral Bio Wilkerson Ii Endo Titanium Alloy Taper Minus - [id number] Implanted:Qty: 1 on 09/21/2021 by Bull Velázquez MD at [facility] Left: Hip [employer] 12/14/2030 [id number] / / [id number] Procedures Procedure Name Priority Date/Time Associated Diagnosis Comments NM OTHER OUTSIDE (NO INTERPRETATION) Routine 03/12/2025 12:05 AM EDT BI MAMMOGRAM SPECIMENT OUTSIDE (NO INTERPRETATION) Routine 03/12/2025 12:00 AM EDT BI MAMMOGRAM OUTSIDE (NO INTERPRETATION) Routine 03/04/2025 12:00 AM EDT BI MAMMOGRAM OUTSIDE (NO INTERPRETATION) Routine 01/29/2025 12:00 AM EDT BD DXA MONITORING Routine 01/28/2025 9:2 8 AM EDT Other osteoporosis without current pathological fracture HM COLONOSCOPY FOR RESULT ENTRY ONLY Routine 09/24/2023 12:24 PM EDT THYROID STIMULATING HORMONE (TSH) Routine 09/12/2021 3:10 PM EDT Blanquita's thyroiditis LIPID PANEL Routine 05/12/2021 3:07 PM EST Dyslipidemia HEPATITIS C ANTIBODY, QUALITATIVE Routine 01/19/2020 8:04 AM EDT Routine general medical examination at a health care facility from Last 3 Months or Most Recently Relevant to Health Maintenance Results * NM Other Outside (No Interpretation) (03/12/2025 12:05 AM EDT) Narrative SYSTEMGENERATED, DOCUMENTATION - 04/13/2025 1:56 PM EST This study is for PACS storage only and not for interpretation. us Unknown Unknown MD SNOW OUTSIDE IMAGING W/OUT INT ERPRETATION Final Result * Mammogram Specimen Outside (No Interpretation) (03/12/2025 12:00 AM EDT) Narrative SYSTEMGENERATED, DOCUMENTATION - 04/13/2025 1:56 PM EST This study is for PACS storage only and not for interpretation. us Unknown Unknown MD IMG OUTSIDE IMAGING W/OUT INT ERPRETATION Final Result * Mammogram Outside (No Interpretation) (03/04/2025 12:00 AM EDT) Narrative SYSTEMGENERATED, DOCUMENTATION - 04/13/2025 1:57 PM EST This study is for PACS storage only and not for interpretation. us Unknown Unknown MD IMG OUTSIDE IMAGING W/OUT INT ERPRETATION Final Result * Mammogram Outside (No Interpretation) (01/29/2025 12:00 AM EDT) Narrative SYSTEMGENERATED, DOCUMENTATION - 04/13/2025 1:57 PM EST This study is for PACS storage only and not for interpretation. us Unknown Unknown MD IMG OUTSIDE IMAGING W/OUT INT ERPRETATION Final Result * DXA Monitoring (11/18/2024 12:22 PM EDT) Anatomical Region Laterality Modality Bone Density Bone Density us Jose Yuen DO IMG BD BONE DENSITY DEXA Final R esult * HM COLONOSCOPY FOR RESULT ENTRY ONLY (09/24/2023 12:24 PM EDT) us Historical Provider HEALTH MAINTENANCE Final Result * TSH (09/12/2021 3:10 PM EDT) TSH 3.60 0.27 - 4.20 uIU/mL [facility] Blood 09/12/2021 3:10 PM EDT 09/12/2021 3:17 PM EDT us Bull Fajardo MD LAB BLOOD BKR ORDERABLES F inal Result [address] [address] * (ABNORMAL) Lipid panel (05/12/2021 3:07 PM EST) HDL 96 mg/dL [facility] Comment: Interpretation <40 mg/dL: Low HDL cholesterol (major risk factor for CHD) Greater than or equal to 60 mg/dL: High HDL cholesterol ( negative risk factor for CHD) HDL - cholesterol is affected by a number of factors, e.g. smoking, excerise, hormones, sex and age. CHOLESTEROL 286(H) 0 - 240 mg/dL [facility] TRIGLYCERIDES 129 30 - 160 mg/dL [facility] LDL 164(H) 50 - 129 mg/dL [facility] Comment: LDL levels in terms of risk for coronary heart disease: <100 mg/dL: Optimal 100-129 mg/dL: Near or above optimal 130-159 mg/dL: Borderline high 160-189 mg/dL: High >190 mg/dL: Very High CARDIAC RISK RATIO 3.0(L) 3.3 - 4.4 C [facility] Blood 05/12/2021 3:07 PM EST 05/12/2021 3:10 PM EST Bull Fajardo MD LAB BLOOD BKR ORDERABLES F inal Result Performing Organization Address [facility] de Phone Number [address] [address] * Hepatitis C antibody, qualitative (01/19/2020 8:04 AM EDT) HCV NON-REACTIV E NON-REACTI VE [facility] Blood 01/19/2020 8:04 AM EDT 01/19/2020 8:27 AM EDT Bull Fajardo MD LAB BLOOD BKR ORDERABLES F inal Result Performing Organization Address [facility] Co de Phone Number [address] [address] from Last 3 Months or Most Recently Relevant to Health Maintenance Insurance MEDICARE PART A & B MEDICARE PPO BLUE REPLACEMENT MEDICARE PART A & B Member Subscriber Plan / Payer ( fective 2019-Present) Name:Elizabeth Tamayoricia Member ID:[id number] Relation to Subscriber:Self Name:Belkis Lilian Subscriber ID:[id number] Payer ID:[id number] Group ID:Not on file Type:Medicare Address: [employer] [address] [place] [id number] [place] [address] MEDICARE PPO BLUE REPLACEMENT MEDICARE PART A & B MEDICARE PART A & B MEDICARE PART A & B Member Subscriber Plan / Payer (Ef fective 2019-Present) Name:Lilian Tamayo Member ID:[id number] Relation to Subscriber:Self Name:Lilian Tamayo Subscriber ID:[id number] Payer ID:[id number] Group ID:Not on file Type:Medicare Address: [facility] [employer] [address] [place] MEDICARE PPO BLUE REPLACEMENT MEDICARE PART A & B MEDICARE PART A & B Member Subscriber Plan / Payer ( fective 2019-Present) Name:Lilian Tamayo Member ID:[id number] Relation to Subscriber:Self Name:Lilian Tamayo Subscriber ID:[id number] Payer ID:[id number] Group ID:Not on file Type:Medicare Address: [employer] [address] [place] [address] [place] [address] MEDICARE PPO BLUE REPLACEMENT MEDICARE PART A & B MEDICARE PPO BLUE REPLACEMENT MEDICARE PART A & B [facility] MEDICARE PPO BLUE REPLACEMENT Advance Directives For more information, please contact: [phone] (9AM - 5PM Ana/[facility], Sunday-Sunday) Documents on File Type Date Recorded Patient Veterans Adviser Expl anation Healthcare Proxy 07/24/2018 * Full Code (Latest Code Status on File) Date Activated Date Inactivated Comments 09/21/2021 4:47 AM Question Answer Comments Code Status Confirmed With: Patient Code Status Communicated To: Inpatient Attending Care Teams Tractor Drill Operator Relationship Specialty Start Date End Date Michelle Fitzgerald MD PCP - General Family Medicine 05/18/22 Additional Source Comments The information contained in this document represents components of the legal health record. It is not the complete legal health record.[facility]
--- OUTSIDE RECORDS SUMMARY | 2025-04-21 11:37 | XMS_ITS | Encounter Summary ---
Author Organization [facility] Address [address] [place] [address] [place] [address] Phone Care Team Providers Care Police Officer Crime Prevention Name Role Phone Bull Fajardo MD Primary Care Provider +- [phone] Radha Zurita MD Primary Care Provid er Michelle Fitzgerald MD Primary Care Provider [phone] Encounter Details Date Type Department Care Team (Late Contact Info) Description 06/28/2018 Ancillary Orders [facility],Outside Imaging [address] [place], [place] [id number] System, Provider Not In, [place] [address] Social History Tobacco Use Types Packs/Day Years [...] Description 05/01/2025 9:00 AM EST Office Visit [facility] At [facility] Rad Onc 30 [place], [place] [phone] Grace Santana MD 30 [place] [address] [email or web address] 01/28/2026 8:50 AM EDT Office Visit [facility] 22 [place] [address] Jose Yuen DO 22 [place] [address] [email or web address] documented as of this encounter Results * [...] documented as of this encounter Care Teams Police Officer Crime Prevention Relationship Specialty Start Date End Date Bull Fajardo MD [address] [place] [phone] [email or web address] PCP - General 05/24/1711/30 Radha Zurita MD [address] [address] PCP - General Family Medicine 12/01/21 1 07/18/21 Michelle Fitzgerald MD [address] [place] [address] [email or web address] PCP - General Family Medicine 05/18/22 documented as of this encounter Additional Source Comments The information contained in this document represents components of the legal health record. It is not the complete legal health record.[facility]
--- OUTSIDE RECORDS SUMMARY | 2025-04-21 11:37 | XMS_ITS | Encounter Summary ---
Author Organization [facility] Address [address] [place] [address] Phone Care Team Providers Care Stock Ranch Supervisor Name Role Phone Bull Fajardo MD Primary Care Provider [phone]- [phone] Radha Zurita MD Primary Care Provid er Michelle Fitzgerald MD Primary Care Provider + [phone] Reason for Referral * - Closed Specialty Diagnoses / Procedures Referred By Contac t Referred To Contact Procedures NM Other Outside (No Interpretation) System, Provider Not In, PhD [employer] [address] [address] Referral ID Status Reason Start Date Expiration Date Visits Re quested Visits Authorized [id number] Closed 06/28/2018 06/28/2019 1 1 Encounter Details Date Type Department Care Team (Late st Contact Info) Description 06/28/2018 Ancillary Orders [facility],Outside Imaging 30 [place] [address] System, Provider Not In, PhD [employer] [address] [place] [address] Social History Tobacco Use Types Packs/Day Years [...] Description 05/01/2025 9:00 AM EST Office Visit [facility]c 30 [place] [address] Grace Santana MD 30 [place] [address] [email or web address] 01/28/2026 8:50 AM EDT Office Visit [facility] 22 [place] [address] Jose Yuen DO 22 [place] [address] [email or web address] documented as of this encounter Results * [...] documented as of this encounter Care Teams Stock Ranch Supervisor Relationship Specialty Start Date End Date Bull Fajardo MD 90 [facility] 101 [place] [address] [email or web address] PCP - General 05/24/1711/30 Radha Zurita MD [address] [place] [address] [email or web address] PCP - General Family Medicine 12/01/21 1 07/18/21 Michelle Fitzgerald MD [address] [place] [address] [email or web address] PCP - General Family Medicine 05/18/22 documented as of this encounter Additional Source Comments The information contained in this document represents components of the legal health record. It is not the complete legal health record.[facility]
--- OUTSIDE RECORDS SUMMARY | 2025-04-21 11:37 | XMS_ITS | Encounter Summary ---
Author Organization [facility] Address [address] [place] [address] [place] [address] Phone Care Team Providers Care Javascript Software Engineer Name Role Phone Bull Fajardo MD Primary Care Provider +- [phone] Radha Zurita MD Primary Care Provid er Michelle Fitzgerald MD Primary Care Provider [phone] Encounter Details Date Type Department Care Team (Late Contact Info) Description 06/28/2018 Ancillary Orders [facility],Outside Imaging 30 [place], [place] [phone] System, Provider Not In, [place] [address] Social History Tobacco Use Types Packs/Day Years [...] 05/01/2025 9:00 AM EST Office [place] [facility] Rad Onc 30 [place], [place] [phone] Grace Santana MD 30 [place] [address] [email or web address] 01/28/2026 8:50 AM EDT Office Visit [facility] 22 [place] [address] Jose Yuen DO 22 [place] [address] [email or web address] documented as of this encounter Results * [...] documented as of this encounter Care Teams Javascript Software Engineer Relationship Specialty Start Date End Date Bull Fajardo MD [address] [place] [phone] [email or web address] PCP - General 05/24/1711/30 Radha Zurita MD [address] [address] [email or web address] PCP - General Family Medicine 12/01/21 1 07/18/21 Michelle Fitzgerald MD [address] [place] [address] [email or web address] PCP - General Family Medicine 05/18/22 documented as of this encounter Additional Source Comments The information contained in this document represents components of the legal health record. It is not the complete legal health record.[facility]
--- OUTSIDE RECORDS SUMMARY | 2025-04-21 11:38 | XMS_ITS | Encounter Summary ---
Author Organization [facility] Address [address] [address] [place] [address] Phone Care Team Providers Care Cartographic Aide Name Role Phone Bull Fajardo MD Primary Care Provider [phone] Radha Zurita MD Primary Care Provid er Michelle Fitzgerald MD Primary Care Provider + [phone] Encounter Details Date Type Department Care Team (Late st Contact Info) Description 09/21/2021 Procedure Pass OR Admitting Dept - Virtual Department 30 [place], [place] [phone] Social History Tobacco Use Types Packs/Day Years [...] high school, GED, job training, learning the Cypriot language, technical skills, or developing parenting skills)? [...] Description 05/01/2025 9:00 AM EST Office [place] [facility] Rad Onc [address] [place] [address] Grace Santana MD [address] [place] [address] [email or web address] 01/28/2026 8:50 AM EDT Office Visit [facility] [address] [place] [address] Jose Yuen DO 22 [place] [address] [email or web address] documented as of this encounter Visit Diagnoses [...] documented as of this encounter Care Teams Cartographic Aide Relationship Specialty Start Date End Date Bull Fajardo MD [address] [place] [phone] [email or web address] PCP - General 05/24/1711/30 Radha Zurita MD [address] [place] [address] [email or web address] PCP - General Family Medicine 12/01/21 1 07/18/21 Michelle Fitzgerald MD [address] [place] [address] [email or web address] PCP - General Family Medicine 05/18/22 documented as of this encounter Additional Source Comments The information contained in this document represents components of the legal health record. It is not the complete legal health record.[facility]
== END 2025-04-21 10:29 | disposition home or self-care (01) ==
LOC: HO.HGS 10:11
PROVIDERS: PCP Family Medicine; Visit Provider Surgery
DX: C50.412 Malignant neoplasm of upper-outer quadrant of left female breast (principal); Z17.0 Estrogen receptor positive status [ER+]; C50.912 Malignant neoplasm of unspecified site of left female breast
CPT/HCPCS: 99024

== ENCOUNTER → 2025-04-21 10:10 | Outpatient (BNVA) | payer MEDICARE, SELFPAY | PROVIDERS: PCP Family Medicine; Visit Provider Surgery | DX: C50.412 Malignant neoplasm of upper-outer quadrant of left female breast (principal); Z17.0 Estrogen receptor positive status [ER+] | CPT/HCPCS: 99212 ==